=== PATIENT | female | born 1960 | race Caucasian/White ===

== ENCOUNTER 2018-12-12 15:40 | Inpatient (IN) ==
[2018-12-12 17:04] LABS: BASO# 0.03 X1000 (0.0-0.2); BASO% 0.2 % (0.0-0.8); EOS# 0.07 X1000 (0.0-0.7); EOS% 0.4 % (0.0-10.0); HEMATOCRIT 40.9 % (37.0-47.0); HEMOGLOBIN 12.5 g/dL (12.0-16.0); IMM GRAN# 0.09 X1000 (0.0-0.04); IMM GRAN% 0.5 % (0.0-0.5); LYMPH# 0.92 X1000 (1.2-3.4); LYMPH% 5.4 % (20.5-51.1); MCH 32.8 PG (27-31); MCHC 30.6 g/dL (33-37); MCV 107.3 FL (81-99); MONO# 0.75 X1000 (0.11-0.59); MONO% 4.4 % (1.7-9.3); MPV 10.9 FL (7.4-10.4); NEUT% 89.1 % (42.2-75.2); PLT 331 X1000 (130-400); RBC 3.81 XMIL (4.2-5.4); RDW 13.5 % (11.5-14.5); WBC 17.16 X1000 (4.8-10.8)
[2018-12-12 17:05] LABS: INR 1.24; PROTIME 15.8 Seconds (11.0-16.0)
[2018-12-12 17:06] LABS: PTT 33.7 Seconds (22.3-41.8)
[2018-12-12 17:19] LABS: ALB/GLOB RATIO 0.8; ALBUMIN 3.6 g/dL (3.5-5.0); CALCIUM 8.8 mg/dL (8.8-10.2); POTASSIUM 4.1 mmol/L (3.5-5.1); TOTAL BILIRUBIN 0.64 mg/dL (0.20-1.00); TOTAL PROTEIN 8.4 g/dL (6.3-8.3)
[2018-12-12 17:26] LABS: CREATININE 5.8 mg/dL (0.5-0.9)
[2018-12-12] MEDS ORDERED: ZOFRAN ODT PO ONE (17:55)
--- NOTE | 2018-12-12 18:13 | PROVIDER DOCUMENTATION ---
HPI-Abdominal Pain/GI Problem - General Chief Complaint: Abdominal Pain Stated Complaint: SIDE PAIN Time Seen by Provider: 12/12/18 15:57 Source: patient, family Allergies/Adverse Reactions: Patient Allergies Allergy/AdvReac Type Severity Reaction Status Date / Time codeine AdvReac NAUSEA/VOMI Verified 07/29/18 17:49 TING Home Medications: Home Medication List Medication Instructions Recorded Confirmed Last Taken Type Amlodipine Besylate 5 mg PO BID 02/16/16 06/22/17 06/22/17 07:00 History Clonidine [Catapres] 1 tab PO QAM 07/20/16 06/22/17 06/22/17 07:00 History Furosemide 40 mg PO DAILY 08/17/16 06/22/17 06/22/17 07:00 History Losartan Potassium 100 mg PO DAILY 10/05/16 06/22/17 06/22/17 07:00 History Clonidine [Catapres] 2 tab PO HS 12/30/16 06/22/17 06/21/17 History Tramadol [Ultram] 50 mg PO Q8HR PRN #30 tablet 12/31/16 06/22/17 Unknown Rx Carvedilol 25 mg PO BID 06/22/17 06/22/17 06/22/17 07:00 History Folic Acid/Vit Bcomp,C [Cherelle-Beatriz 0.8 mg PO QPM 06/22/17 06/22/17 06/21/17 History Tablet] Levofloxacin [Levaquin] 500 mg PO Q48H #4 tab 06/25/17 Unknown Rx Prednisone See Taper PO DAILY #30 tab 06/25/17 Unknown Rx Cyclobenzaprine [Flexeril] 10 mg PO TID PRN #10 tab 07/29/18 Unknown Rx Prednisone 20 mg PO BID #10 tab 07/29/18 Unknown Rx - History of Present Illness-ABD Nature of Presenting Problems: 58 YO F pmh for ESRD on HD presents with LLQ abdominal pain that radiates to left groin that began last night. Pt states pain is crampy and sharp. She has hx of renal stones but states this pain is not the same. She has associated fever and chills and decreased appetite. last BM was today and with some diarrhea. She went to dialysis today and was not able to complete her treatment. Abdominal Pain Onset Location: reports: LLQ Pain Radiation: reports: groin Quality of Pain: reports: aching, cramping Severity in ED: reports: moderate Onset/Duration: reports: last night Timing: reports: still present, getting worse Activities at Onset: reports: none Exposure to sick contacts?: No Modifying Factors: improves with: nothing Associated Symptoms: reports: fever/chills Review of Systems - Adult - REVIEW OF SYSTEMS - ADULT Constitutional: reports: chills, fever Eyes: reports: no symptoms reported Ears, Nose, Mouth & Throat: reports: no symptoms reported Cardiovascular: denies: chest pain, edema Respiratory: denies: cough, shortness of breath Gastrointestinal: reports: see HPI, abdominal pain, diarrhea, nausea. denies: vomiting Genitourinary: reports: other (anuric) Musculoskeletal: reports: no symptoms reported Neurological: reports: no symptoms reported Hematologic/Lymphatic: reports: no symptoms reported Allergic/Immunologic: reports: no symptoms reported Past History - Adult - PAST MEDICAL HISTORY-ADULT Review of Records: reports: Old Records Reviewed, Nursing Assessment Review Major Childhood Illnesses: reports: denies history Cardiovascular: reports: denies history Respiratory: reports: denies history Gastrointestinal: reports: denies history Obstetrical/Gynecological: reports: denies history Genitourinary: reports: denies history Musculoskeletal: reports: denies history Neurological: reports: denies history Endocrine/Immune: reports: denies history Other Conditions: reports: denies history - PRIOR SURGERIES/PROCEDURES Surgical/Procedure History: reports: none - PRIOR HOSPITALIZATIONS Prior Hospitalizations: reports: none - IMMUNIZATION STATUS Childhood Immunizations: NUTD Flu Vaccine: NUTD - FAMILY HISTORY Family History: reviewed, not pertinent Physical Exam-General - PHYSICAL EXAM-ADULT Initial Vital Signs Reviewed: Yes - CONSTITUTIONAL General Appearance: alert, mild distress (from abdominal pain), obese - EYES Eyes: PERRL/EOMI, pink conjunctivae - HEAD, EARS, NOSE, MOUTH & THROAT HENMT: normocephalic/atraumatic, moist mucous membranes - NECK Neck: full range of motion, supple - RESPIRATORY Respiratory: lungs clear, normal breath sounds - CARDIOVASCULAR Cardiovascular: tachycardia - GASTROINTESTINAL (ABDOMEN) Abdominal Exam: normal bowel sounds, soft (obese abdomen, cannot appreciate guar ding or hernia) - MUSCULOSKELETAL Extremity: non-tender - SKIN Integumentary: normal color, normal turgor, warm/dry - NEUROLOGIC Neurologic: grossly normal, no motor/sensory deficits - PSYCHIATRIC Psych/Mental Status: normal mood/affect Progress - PLAN OF CARE/RESULTS Progress/Plan/Lab Results: Vital Signs - 8 hr 12/12/18 15:58 Temperature 99.8 F H Pulse Rate 104 H Respiratory Rate 20 Blood Pressure 147/70 O2 Sat by Pulse Oximetry 94 L Laboratory Results - last 24 hr 12/12/18 12/12/18 12/12/18 16:26 16:26 16:26 WBC 17.16 H RBC 3.81 L Hgb 12.5 Hct 40.9 MCV 107.3 H MCH 32.8 H MCHC 30.6 L RDW Std Deviation 13.5 Plt Count 331 MPV 10.9 H Immature Gran % (Auto) 0.5 Neut % (Auto) 89.1 H Lymph % (Auto) 5.4 L [place] % (Auto) 4.4 Eos % (Auto) 0.4 Baso % (Auto) 0.2 Immature Gran # (Auto) 0.09 H Neut # (Auto) 15.30 H Lymph # (Auto) 0.92 L [place] # (Auto) 0.75 H Eos # (Auto) 0.07 Baso # (Auto) 0.03 PT 15.8 INR 1.24 PTT (Actin FS) 33.7 Sodium 136 Potassium 4.1 Chloride 91 L Carbon Dioxide 25 Anion Gap 20 BUN 28 H Creatinine 5.8 H Estimated GFR/1.73 m2 7 BUN/Creatinine Ratio 5 Glucose 125 H Calculated Osmolality 279 Calcium 8.8 Total Bilirubin 0.64 AST 9 L ALT 11 Alkaline Phosphatase 96 Total Protein 8.4 H Albumin 3.6 Globulin 4.8 Albumin/Globulin Ratio 0.8 Amylase 35 Lipase 15 Orders Category Date Time Status Saline Loc NOW Care 12/12/18 16:[address] ABDOMEN/PELVIS W/O CONTRAST [CT] Stat Exams 12/12/18 17:22 Ordered AMYLASE [CHEM] Stat Lab 12/12/18 16:26 Completed CBC WITH ELECTRONIC DIFF [HEME] Stat Lab 12/12/18 16:26 Completed COMPREHENSIVE METABOLIC PANEL [CHEM] Stat Lab 12/12/18 16:26 Completed LIPASE [CHEM] Stat Lab 12/12/18 16:26 Completed PROTIME WITH INR [COAG] Stat Lab 12/12/18 16:26 Completed PTT [COAG] Stat Lab 12/12/18 16:26 Completed Ondansetron Odt [Zofran Odt] Med 12/12/18 17:55 Discontinued 4 mg PO NOW ONE Result Diagrams: 12/12/18 16:26 12/12/18 16:26 - CT/MRI 1 CT Study: Abdomen, Pelvis (IMPRESSION: Interval development of substantial atrophic changes of bilateral kidneys, generalized thinning of renal cortices. 1 cm stone in left renal pelvis, with mild distention of the left renal pelvis. No other substantial hydronephrosis. Nonobstructing stones in lower right kidney. 16 x 16 cm cystic appearing mass which extends from the anterior pelvis to the anterior lower abdomen. This has enlarged since 09/18/2016 and may arise from the left adnexa. Inflammatory changes at lower abdomen near the mass, with extraluminal gas in the mesentery/free intraperitoneal air, compatible with perforated viscus. These may arise from the diverticulitis at low lying mid transverse colon. It is also possible that these could relate to pressure erosion of small bowel by the mass. This report was discussed with Dr. Ribeiro on 12/12/2018 at 7:26 PM and was readback. This exam was performed using automated exposure control, adjustment of mA or kV according to patient size, and/or use of iterative reconstruction technique. Electronically signed by Harrison Barnes 12/12/2018 7:27 PM) - CONSULTS/PCP/HOSPITALIST Notification #1 *Consult/PCP/Hospitalist*: Dr. Dennis Time Discussed: 19:33 Consult Disposition: Will see in ED (Dr. Dennis states admit to hospitalist and start abx.) #2 Consult: Dr. Guerrero Time Discussed: 20:05 Consult Disposition: Will see in ED Departure - Departure Date of Disposition Decision: 12/12/18 Time of Disposition Decision: 08:10 DIAGNOSIS: End stage renal failure on dialysis, Abdominal pain, Diverticulitis, Perforated diverticulum of large intestine, Pelvic mass, Renal stones Disposition: ADMITTED INPATIENT 09 Certified Medical Emergency: Emergent Condition: Serious Referrals and Follow-Ups: None,PCP [Primary Care Provider] - - Critical Care Note This patient required my direct & personal management of CC.: No Attestation - Physician/ LUIS FERNANDO Attestation The physician spent face to face time with patient:: Yes Advanced Practice Provider documentation review:: Supervising physician onsite and consulted in the evaluation and care of this patient. The physician did have a face to face encounter with the patient.
[2018-12-12] MEDS ORDERED: MORPHINE IV ONE (18:29)
--- NOTE | 2018-12-12 19:29 | Diag Imaging Result Doc PS360 ---
EXAM: CT ABDOMEN/PELVIS W/O CONTRAST - 12/12/2018 HISTORY: left sided abdominal pain TECHNIQUE: CT abdomen/pelvis without contrast. No contrast administered per request of the referring provider. COMPARISON: 09/18/2016 FINDINGS: The bilateral kidneys appear substantially atrophic compared to the prior exam, with generalized thinning of renal cortices. There is a 1 cm stone in the left renal pelvis, which appears slightly smaller than the stone at this location on the prior exam. There is mild distention of the left renal pelvis, but there is no other substantial hydronephrosis identified. There are nonobstructing stones at the lower right kidney. There are atherosclerotic calcifications noted. There is a 16 x 16 cm cystic appearing mass which extends from the anterior pelvis into the anterior lower abdomen. This measures approximately 11 cm on prior exam. This may arise from the left adnexa. There are inflammatory changes along the left superior lateral aspect of the mass. There are inflammatory changes of nearby mesentery, and there is extraluminal gas in the mesentery/free intraperitoneal air. There is colonic diverticulosis. There is apparent mild wall thickening at the mid transverse colon, which extends to the lower abdomen near the mass. The free intraperitoneal air could relate to diverticulitis at the mid transverse colon. It is also possible that the free air could relate to pressure erosion of small bowel by the mass. There is no discrete focal abscess identified. There is no evidence of bowel obstruction. The appendix is unremarkable. There are a few calcified gallstones in the gallbladder. There is no pericholecystic inflammation identified. There are atherosclerotic calcifications noted. IMPRESSION: Interval development of substantial atrophic changes of bilateral kidneys, generalized thinning of renal cortices. 1 cm stone in left renal pelvis, with mild distention of the left renal pelvis. No other substantial hydronephrosis. Nonobstructing stones in lower right kidney. 16 x 16 cm cystic appearing mass which extends from the anterior pelvis to the anterior lower abdomen. This has enlarged since 09/18/2016 and may arise from the left adnexa. Inflammatory changes at lower abdomen near the mass, with extraluminal gas in the mesentery/free intraperitoneal air, compatible with perforated viscus. These may arise from the diverticulitis at low lying mid transverse colon. It is also possible that these could relate to pressure erosion of small bowel by the mass. This report was discussed with Dr. Ribeiro on 12/12/2018 at 7:26 PM and was readback. This exam was performed using automated exposure control, adjustment of mA or kV according to patient size, and/or use of iterative reconstruction technique. Electronically signed by Harrison Barnes 12/12/2018 7:27 PM
[2018-12-12] MEDS ORDERED: FLAGYL 500 MG/NS 500 MG/100 ML IVPB IV ONE (19:35)
[2018-12-12] MEDS ORDERED: CIPRO 400 MG/D5W 400 MG/200 ML IVPB IV ONE (20:00)
[2018-12-12] MEDS ORDERED: ZOFRAN IV ONE (20:08)
--- NOTE | 2018-12-12 21:13 | HISTORY AND PHYSICAL ---
PRIMARY CARE PHYSICIAN: Dr. Leavitt. REASON FOR ADMISSION: Two day history of left lower quadrant pain. HISTORY OF PRESENT ILLNESS: Ms. Alexandria Carmen is a 58-year-old woman with a past history of end-stage kidney disease, who undergoes dialysis Wednesday, Wednesday, Wednesday; hypertensive heart disease; congestive heart failure; anemia who reports developing sudden sharp and now constant left lower quadrant pain while sitting yesterday night. Said the pain persisted throughout the night and got worse as hours went by. She says the pain is sharp, worse with any slight movement. She says she feels queasy and has been having chills, but no fever. No antecedent diarrhea. No vomiting. The patient is anuric and denies any genitourinary complaints. Reports that the pain radiates to the left lower quadrant to the suprapubic area. No cardiorespiratory complaints. No focal neurological complaints. No polyuria or polydipsia. No arthralgias or rash. No recent change in her home medications. REVIEW OF SYSTEMS: Twelve system review was done. Positive findings per HPI. ALLERGIES: Codeine. HOME MEDICATIONS: Have not been reconciled. SURGICAL HISTORY: Patient has had kidney stone surgery, AV fistula in the left upper extremity. FAMILY HISTORY: No heart disease or kidney disease in first-degree relatives. SOCIAL HISTORY: Stopped smoking 5 years ago. No arcus drug use. Lives with her . LABORATORY WORK: CT scan of the abdomen showed inflammatory changes in the lower abdomen near 16 x 16 cystic appearing mass which extends from the anterior pelvis to the lower abdominal area which has enlarged since 2017. There was also some free intraperitoneal free air compatible with perforated viscus which may arise from diverticulitis at the lower line mid transverse colon. White count 7000, H/H . Platelets 331,000. MCV 107, 89% segs, BUN 28, creatinine 5.8, glucose 125. Lipase and amylase normal. PTT is normal. EXAMINATION: Morbidly obese woman who is in moderate distress from her pain. She is a alert and oriented to person and time with normal mood and affect.Vital Signs: Blood pressure is 140/70, heart rate 104, respiratory rate 20, temperature is 99.8 degrees, 94% on room air. HEENT: Head is normocephalic, atraumatic. Eyes, RITA, EOMI. She is anicteric not pale. ENT exam is grossly normal. Neck: Short and thick. No JVD or carotid bruit. No thyromegaly. Chest: Clear to auscultation. Clear enriquez. Cardiovascular: First and second heart sounds heard. No gallops, murmurs, rubs. Rhythm is regular. Abdomen: Protuberant, soft, with tenderness confined to the suprapubic, left lower quadrant and upper quadrant areas. No rebound or guarding. Bowel sounds are surprisingly hyperactive. No mass or organomegaly could be appreciated. Rectal: Examination is deferred. Extremities: Patient has good distal pulse volume. No edema. No clubbing. No peripheral cyanosis. No tremors. Neurological: No gross focal deficits. Skin: Intact. No breakdown, lesions, erythema. Musculoskeletal: Exam is normal. ASSESSMENT: At this time is 1. Possible perforated viscus, i.e., diverticulitis versus possible erosion or small bowel. 2. Large adnexal cystic mass. 3. End-stage kidney disease. 4. Macrocytic anemia. 5. Hypertensive kidney disease. 6. Hypertensive heart disease. 7. Morbid obesity. PLAN: 1. Dr. Dennis was notified and will see patient later tomorrow. For now, we will start the patient on Zosyn and pain control. Treat symptomatically for nausea. Cautious IV fluid resuscitation. Underwent dialysis today. 2. We will consult Dr. Leavitt for further input and additional consultation for possible preoperative treatment for possible intra-abdominal surgery. 3. Please review patient's home medications when reconciled. cc: Roberto Guerrero MD [facility]
[2018-12-12] MEDS ORDERED: TYLENOL PO ONE (22:19)
[2018-12-12] MEDS ORDERED: NS 1,000 ML IV SCH (22:58)
[2018-12-13] MEDS: DILAUDID IV PRN ×4 (00:55→12:02)
[2018-12-13] MEDS: ZOSYN 2.25 GM in NS 50 ML IV SCH ×5 (00:55→19:38)
[2018-12-13] MEDS: ZOFRAN IV PRN ×2 (00:55→05:22)
[2018-12-13] MEDS: HEPARIN SUBQ SCH ×2 (00:56→13:47)
[2018-12-13 07:52] LABS: BASO# 0.03 X1000 (0.0-0.2); BASO% 0.2 % (0.0-0.8); EOS# 0.03 X1000 (0.0-0.7); EOS% 0.2 % (0.0-10.0); HEMATOCRIT 35.9 % (37.0-47.0); HEMOGLOBIN 10.9 g/dL (12.0-16.0); IMM GRAN% 0.5 % (0.0-0.5); LYMPH# 1.07 X1000 (1.2-3.4); LYMPH% 5.5 % (20.5-51.1); MCHC 30.4 g/dL (33-37); MCV 108.8 FL (81-99); MONO# 0.93 X1000 (0.11-0.59); MONO% 4.8 % (1.7-9.3); MPV 10.8 FL (7.4-10.4); NEUT# 17.18 X1000 (1.4-6.5); NEUT% 88.8 % (42.2-75.2); PLT 304 X1000 (130-400); RDW 13.3 % (11.5-14.5); WBC 19.34 X1000 (4.8-10.8)
--- NOTE | 2018-12-13 07:57 | CONSULTATION ---
DATE OF CONSULTATION: 12/12/2018 HISTORY OF PRESENT ILLNESS: Ms. Alexandria Carmen is a 58-year-old white female who has end-stage renal disease and is morbidly obese. She presented to our emergency department this evening with a 2-day history of abdominal pain in her left lower quadrant of her abdomen. She states that she has had pain like this once before, but it quickly got better. She went to dialysis today, and was miserable, and presented to the emergency department this evening. I was called by the fellow in the emergency department, and was asked to see the patient because a CT scan suggested free air. Evidently, there was inflammation and a mass in the left lower quadrant of the abdomen. This was a preliminary read. I could not pull the patient up in the computer to see films or a report. PHYSICAL EXAMINATION: I went down to examine the patient. She was hemodynamically stable. Her heart rate was 106, her blood pressure 160/54. She was awake, cooperative. She was hurting in the left lower quadrant of her abdomen, but she did not have diffuse peritonitis. She has a left arm AV fistula. She is morbidly obese. Her heart had a regular rate. Lungs were clear. Rectal and vaginal exams were not performed. She does have palpable femoral pulses. PLAN: I have surgery this evening, and then Orthopedics has two cases to follow, so I have asked the fellow to have the hospitalist evaluate the patient and admit her for us, and begin resuscitation and IV antibiotics, and we will reassess her as the data becomes available. cc: Katharine Dennis MD
[2018-12-13 08:17] LABS: ALB/GLOB RATIO 0.8; ALBUMIN 3.1 g/dL (3.5-5.0); CALCIUM 8.9 mg/dL (8.8-10.2); POTASSIUM 4.7 mmol/L (3.5-5.1); TOTAL BILIRUBIN 0.43 mg/dL (0.20-1.00)
[2018-12-13 08:23] LABS: CREATININE 7.6 mg/dL (0.5-0.9)
[2018-12-13] MEDS ORDERED: CIPRO 400 MG/D5W 400 MG/200 ML IVPB IV SCH (09:00)
[2018-12-13 09:55] LABS: BANDS 4 % (0-1); EOS 2 % (1-10); LYMPHS 2 % (21-51); MONO 6 % (1-9); SEGS 86 % (42-75)
[2018-12-13 10:35] LABS: TSH 2.9 uIUmL (0.27-4.20)
--- NOTE | 2018-12-13 16:28 | PROGRESS NOTE ---
DATE: 12/13/2018 SUBJECTIVE: This patient is lying in bed and she is complaining of abdominal pain. Her abdomen seems to be a little bit distended and she has been having diffuse abdominal pain in multiple parts of the abdomen. Surgery Department is on board and at the bedside at the moment of my evaluation. She has been refusing for now to go for surgery. She wants to try antibiotics and pain medication first. OBJECTIVE: Vital Signs: Temperature 97.8 degrees, pulse 84, respiratory rate 16, blood pressure 134/72, oxygen saturation 100% on 2 L of nasal cannula. HEENT: Head normocephalic. No trauma. PERRLA. Neck: Supple. No JVD. No masses. Central trachea. Chest: Clear to auscultation. Decreased at the bases. Abdomen: Soft. Generalized tenderness to palpation, but it is more intense in certain points of the abdomen. Decreased bowel sounds. Extremities: No edema. No clubbing. No cyanosis. No tremors. Neurological: No deficits. LABORATORY: WBC 19.3, hemoglobin 10.9, hematocrit 35.9, and platelets 204,000. Sodium 136, potassium 4.7, chloride 92, bicarbonate 24, BUN 37, creatinine 7.6, glucose 119, calcium 8.9. ASSESSMENT AND PLAN: 1. Possible perforated viscus, likely a diverticular perforation. Surgery Department on board and they have been discussing the possibility of taking this patient to the OR but she has been refusing. She wants to try first antibiotics and pain medication and depending on the progression, she will decide whether or not she will go to the OR. Vital signs are stable but we will monitor this closely. 2. Large adnexal cystic mass, aware. We will monitor. 3. End-stage kidney disease. Nephrology Department has been consulted. We will follow recommendations. 4. Macrocytic anemia. Probably this is chronic. 5. Hypertensive kidney disease. Aware. 6. Hypertension. Continue to monitor. Blood pressure seems to be stable. 7. Morbid obesity. Aware. She does have a body mass index of 40.8 kg. cc: Casper Veliz MD
[2018-12-13] MEDS: KLONOPIN PO SCH ×2 (17:11→20:43)
--- NOTE | 2018-12-13 17:40 | PROGRESS NOTE ---
DATE: 12/13/2018 Ms. Alexandria Carmen is a patient of our hospitalists and Dr. Leavitt, and we were asked to consult on her because of abdominal pain and abnormal CT scan findings. I initially saw her last night in the emergency department because of left-sided abdominal pain. She continues to have abdominal pain, and I have reviewed her CT scan with Dr. Gerardo, our radiologist. Her CT scan shows a large cystic mass involving her pelvis in the lower abdomen. It seems to be coming from the left adnexa. She also has some micro free air, and it is uncertain of where this free air is coming from, whether it is diverticulosis and diverticulitis or is it because bowel is stuck to this cystic mass. Because of her ongoing pain and increasing white count from 17 to 19, I have offered her exploratory laparotomy with removal of the pelvic mass and possible bowel resection and colostomy. She is at high risk for surgery because of her morbid obesity and her end-stage renal disease. She is on IV antibiotics and fluids and clinically states she feels a little bit better and she was scared about making it through surgery and did not want to allow surgery today. She wanted to give the antibiotics more time to work, and her agreed with her. We will follow along. Her heart rate is 78, blood pressure 135/56, O2 saturation 97%. She is afebrile. cc: Katharine Dennis MD
[2018-12-13] MEDS ORDERED: KLONOPIN PO SCH (21:00)
--- NOTE | 2018-12-13 21:10 | NEPHROLOGY CONSULTATION ---
DATE: 12/13/2018 REASON FOR ADMISSION: Left lower quadrant pain and discomfort. REQUESTING PHYSICIAN: Dr. Guerrero. REASON FOR CONSULT: ESRD. HISTORY OF PRESENT ILLNESS: Ms. Carmen is a 58-year-old white female patient who is known to our outpatient services for hemodialysis on Wednesday, Wednesday, Wednesday. Patient had undergone her dialysis treatment today with complaints of left lower quadrant pain. Stated it had worsened over the last 2 days. Indicated that she was going to go to the emergency room for monitoring and evaluation after her dialysis treatment. Upon evaluation at [facility] Emergency Department, she had a CT of the abdomen which showed inflammatory changes with lower abdomen near 16 x 16 cystic appearing mass, extending from the anterior pelvis to the lower abdominal area, which has enlarged since 2017. It also showed free intraperitoneal free air compatible with perforated viscus arising from diverticulitis in the lower line mid transverse colon. Her white count was 7000 on admission. Lipase and amylase were normal. PTT was normal. The patient was subsequently admitted. Dr. Dennis was called and notified for monitoring and evaluation. The patient states that she had been aware of a smaller ovarian cyst approximately 2 years ago. Was unaware of a mass. She denies chest pain. No increased work of breathing. No nausea, vomiting, or diarrhea, though positive decreased appetite. Tenderness to the left lower quadrant. Difficulty moving. Bilateral abdominal discomfort. No fever or chills. No hemoptysis, hematochezia, or hematuria. The patient does indicate that she has pressure with need to void, but has been unable to void for over a year. Positive suprapubic discomfort. PAST MEDICAL HISTORY: Positive for: 1. End-stage renal disease, with hemodialysis on Wednesday, Wednesday, Wednesday secondary to hypertension. 2. She suffers from hypertension. 3. Congestive heart failure. 4. Anemia of chronic disease. 5. Osteodystrophy of chronic disease. SURGICAL HISTORY: A dialysis tunneled catheter in the past with an AV fistula to the left upper arm. FAMILY HISTORY: Noncontributory to end-stage renal disease. Positive for cardiac disease. SOCIAL HISTORY: She lives with her at home. . Denies tobacco, alcohol or illicit drug use. ALLERGIES: Listed as codeine. HOME MEDICATIONS: 1. Amlodipine. 2. Clonidine. 3. Furosemide. 4. Losartan. 5. Tramadol. 6. Carvedilol. 7. Cherelle-Beatriz vitamin. 8. Rocaltrol. 9. Mircera. 10. IV iron as indicated at the outpatient clinic. VITAL SIGNS: The patient's most recent vital signs: Her temperature 98.7 degrees, blood pressure 145/69, heart rate 90, respirations 16. She is on 2 L nasal cannula. Last recorded saturation 95%. She is at 558 in. She has had 0 recorded out. LABS: Sodium 136, potassium 4.7, chloride 92, CO2 24, BUN 37, creatinine 7.6, glucose 119, anion gap of 20, calcium 8.9, albumin 3.1. White count is up to 19.3, hemoglobin 10.9, hematocrit 35.9, with a platelet count of 304,000. The patient has a pro-time of 15.8, INR of 1.24, PTT 33.7. As mentioned, a CT of the abdomen and pelvis indicated a 16.6 mass with some diverticula, free air noted in above. PHYSICAL EXAMINATION: General: This is a 58-year-old white female who appears chronically ill, in no acute distress. Skin: Warm and dry. HEENT: Normocephalic, atraumatic. Conjunctiva is pale. She has RITA. Mucous membranes are dry. Neck: Supple. Trachea midline. No evidence of JVD in the upright position. Cardiovascular: Regular rate and rhythm. She has a soft systolic murmur. Lungs: Clear to auscultation bilaterally. Equal excursion on O2. Abdomen: Large, round, tender to palpation. Genitourinary: Not inspected. She is tender to the suprapubic area. Minimal void with dialysis assist. Extremities: Have no edema. No clubbing or cyanosis. Fistula to the left upper arm. Good palpable thrill, dry and intact. Neurological: Alert and oriented x3. ASSESSMENT AND PLAN: 1. Chronic kidney disease stage 5D. The patient had her routine dialysis treatment yesterday. We will plan for dialysis in the a.m. 2. Electrolytes and acid-base balance. These are acceptable. 3. Anemia. This is close to target. 4. Perforated diverticulitis and pelvic mass. Dr. Dennis has been consulted to evaluate her abdominal mass and possible free air with diverticula. We will defer to his primary care and his suggestions. 5. Bladder scan of greater than 1500 mL. We will defer to Urology secondary to inability to place De La Rosa catheter for ease of pelvic and suprapubic pressure. - Bladder scan is erroneously reading the pelvic cyst as her bladder. No catheter required. elin I would like to thank you for allowing us to follow with this patient. Dictated by PATTI Blum for Michael Leavitt MD Face to face encounter, data reviewed, discussed with Sarah Olivia on 12/13/18. I agree with the above assessment and plan of care. elin cc: PATTI Blum MD [facility]
[2018-12-14] MEDS: ZOSYN 2.25 GM in NS 50 ML IV SCH ×5 (02:03→22:01)
[2018-12-14] MEDS: HEPARIN SUBQ SCH ×2 (02:03→16:19)
[2018-12-14] MEDS: DILAUDID IV PRN ×4 (03:52→23:08)
[2018-12-14] MEDS ORDERED: TIGHT: 0.2 ML/HR FOR DIALYSIS MISC PRN (06:31)
[2018-12-14] MEDS ORDERED: NS 2,000 ML MISC PRN (06:31)
[2018-12-14] MEDS ORDERED: HEPARIN IV PRN (06:31)
[2018-12-14 07:18] LABS: HEMATOCRIT 35.3 % (37.0-47.0); HEMOGLOBIN 10.7 g/dL (12.0-16.0); MCHC 30.3 g/dL (33-37); PLT 296 X1000 (130-400); RBC 3.24 XMIL (4.2-5.4); RDW 13.2 % (11.5-14.5); WBC 16.69 X1000 (4.8-10.8)
[2018-12-14 07:19] LABS: BASO# 0.02 X1000 (0.0-0.2); BASO% 0.1 % (0.0-0.8); EOS# 0.27 X1000 (0.0-0.7); EOS% 1.6 % (0.0-10.0); IMM GRAN# 0.06 X1000 (0.0-0.04); IMM GRAN% 0.4 % (0.0-0.5); LYMPH# 0.99 X1000 (1.2-3.4); LYMPH% 5.9 % (20.5-51.1); MONO# 0.84 X1000 (0.11-0.59); MPV 10.6 FL (7.4-10.4); NEUT# 14.51 X1000 (1.4-6.5)
[2018-12-14 07:39] LABS: ALB/GLOB RATIO 0.6; ALBUMIN 2.5 g/dL (3.5-5.0); CALCIUM 8.9 mg/dL (8.8-10.2); TOTAL BILIRUBIN 0.35 mg/dL (0.20-1.00); TOTAL PROTEIN 6.7 g/dL (6.3-8.3)
[2018-12-14 07:49] LABS: CREATININE 8.9 mg/dL (0.5-0.9)
[2018-12-14 07:57] LABS: BANDS 1 % (0-1); EOS 2 % (1-10); LYMPHS 8 % (21-51); MONO 5 % (1-9); SEGS 84 % (42-75)
--- NOTE | 2018-12-14 12:47 | NEPHROLOGY PROGRESS NOTE ---
DATE: 12/14/2018 TIME SEEN: 0720. SUBJECTIVE: Ms. Carmen was resting quietly in bed. Her is at her bedside. She has complaints of abdominal pain radiating from right to left. OBJECTIVE: Vital Signs: Temperature 98.6 degrees, blood pressure 113/56, heart rate 93, respirations 18. She is on 2 L nasal cannula. Last recorded saturation 97%. She has had 914 in. She has had 0 recorded out. Labs: Sodium 134, potassium 5, chloride is 92, CO2 is 21, BUN 46, creatinine 8.9, glucose is 112, the patient's anion gap is 21, her calcium is 8.9, albumin 2.5. White count 16.69, her hemoglobin is 10.7, hematocrit 35.3, with a platelet count of 296,000. Physical Examination: General: This is a 58-year-old, white female resting quietly in bed. She appears chronically ill. No acute distress. Skin is warm and dry. HEENT: Normocephalic, atraumatic. Conjunctivae are pale pink. She has RITA. Mucous membranes are dry. Neck: Supple. Trachea midline. No evidence of JVD. Cardiovascular: She is regular rate and rhythm. She is without murmur or gallop. Lungs: Clear to auscultation bilaterally. Equal excursion, on O2. Abdomen: Large, obese, soft. Tenderness noted on light palpation. Hypoactive bowel sounds. Genitourinary: Not inspected. Minimal void with dialysis assist. Extremities: Have trace edema. No clubbing or cyanosis. Left upper arm fistula intact with good thrill. Neurological: Alert and oriented x3. ASSESSMENT AND PLAN: 1. Chronic kidney disease stage 5D. The patient is due for her routine dialysis treatment today. We will place her on a 2 K bath. She is to dialyze for 3.5 hours. We will attempt to pull her to her outpatient dry weight. 2. Electrolytes and acid-base balance. These are acceptable with correction on dialysis. 3. Anemia. This remains low but stable. No indications for intervention. 4. Perforated diverticula with pelvic mass. Dr. Dennis continues to monitor and follow, along with the primary care. I would like to thank you for allowing us to follow with this patient. Dictated by PATTI Blum for Michael Leavitt MD Face to face encounter, data reviewed, discussed with Sarah Olivia on 12/14/18. I agree with the above assessment and plan of care. cc: PATTI Blum MD [facility]
--- NOTE | 2018-12-14 13:24 | PROGRESS NOTE ---
DATE: 12/14/2018 Ms. Alexandria Carmen is a patient of our Hospitalist and Dr. Leavitt. She has end-stage renal disease and she is morbidly obese. She was admitted with abdominal pain. She has a known pelvic mass probably originating from her left adnexa. A CT scan showed some free air. We talked about taking her to surgery yesterday but she was worried about making it through the operation and wanted to be treated conservatively with IV antibiotics and fluid resuscitation. Her white blood cell count is 16.7, hematocrit is stable at 35%. She is due for dialysis today. She continue to have lower abdominal pain. Her heart rate is 90, blood pressure 106/45, O2 saturation 93%, and she is afebrile. She is getting IV Zosyn. We will reassess her tomorrow. cc: Katharine Dennis MD
[2018-12-14] MEDS: KLONOPIN PO SCH ×2 (16:20→22:01)
--- NOTE | 2018-12-14 18:04 | PROGRESS NOTE ---
DATE: 12/14/2018 SUBJECTIVE: The patient is lying in bed and she is still complaining of abdominal pain. It seems to be worse compared with this morning. She seems to be a little bit distended. As per the patient, she is passing some gas. Surgery Department on board. White blood cell decreased from 19 to 16. Hemoglobin about the same compared with yesterday. We will continue to monitor. OBJECTIVE: Vital Signs: At 8 a.m., temperature 97.3 degrees, pulse 90, respiratory rate 18, blood pressure 106/45, oxygen saturation 93 on room air. As per the nurse, systolic blood pressure before dialysis in the 120s, after dialysis in the 150s. HEENT: Head normocephalic. No trauma. PERRLA. Neck: Supple. No JVD. No masses. Central trachea. Chest: Clear to auscultation. Decreased at the bases. Abdomen: Soft. Generalized tenderness to palpation but mostly at the level of the upper abdomen. Decreased bowel sounds but present. Extremities: No edema. No clubbing. No cyanosis. Neurological: The patient is alert. She is oriented x3. No focal deficits. LABORATORY: WBC 16.6, hemoglobin 10.7, hematocrit 35.3, and platelets 296,000. Sodium 134, potassium 5, chloride 92, bicarbonate 21, BUN 46, creatinine 8.9, glucose 112, calcium 8.9, AST 9, ALT 10, alkaline phosphatase 86, albumin 2.5. ASSESSMENT AND PLAN: 1. Possible perforated viscus, likely a diverticular perforation. Surgery Department on board. WBC is a little bit better compared with yesterday. She has not been having a fever for the past 24 hours. She did have a fever on the 16th up to 102. She just had dialysis and she tolerated that well. It looks like they removed around 2.5 L. We will monitor this patient. Continue with broad spectrum antibiotics. Surgery Department following this patient closely as well. 2. Large adnexal cystic mass, aware. We will monitor. 3. End-stage renal disease, on hemodialysis. Around 2.5 L were just removed. 4. Macrocytic anemia, likely chronic. 5. Hypertensive kidney disease. Aware. 6. Hypertension. Continue to monitor. Blood pressure seems to be stable. 7. Morbid obesity. Aware. She does have a body mass index of 40.8 kg. 8. We will continue monitoring this patient. She is not on any blood pressure medication at this point and her blood pressure has been sometimes as low as 106/45, so I will continue to monitor. I had a conversation with the patient about the surgery and it looks like she has decided to probably have it tomorrow, but we will see how she does today and we will see the results in the morning again. cc: Casper Veliz MD
[2018-12-15] MEDS: HEPARIN SUBQ SCH ×2 (06:29→18:55)
[2018-12-15] MEDS: ZOSYN 2.25 GM in NS 50 ML IV SCH ×2 (06:30→12:35)
[2018-12-15 07:36] LABS: BASO# 0.02 X1000 (0.0-0.2); BASO% 0.1 % (0.0-0.8); HEMATOCRIT 36.6 % (37.0-47.0); HEMOGLOBIN 10.9 g/dL (12.0-16.0); LYMPH# 1.28 X1000 (1.2-3.4); LYMPH% 7.9 % (20.5-51.1); MCH 32.4 PG (27-31); MCHC 29.8 g/dL (33-37); MCV 108.9 FL (81-99); MONO# 0.88 X1000 (0.11-0.59); MONO% 5.4 % (1.7-9.3); MPV 10.7 FL (7.4-10.4); PLT 338 X1000 (130-400); RBC 3.36 XMIL (4.2-5.4); RDW 13.2 % (11.5-14.5); WBC 16.16 X1000 (4.8-10.8)
[2018-12-15 07:46] LABS: CALCIUM 8.9 mg/dL (8.8-10.2); CREATININE 6.8 mg/dL (0.5-0.9); POTASSIUM 4.2 mmol/L (3.5-5.1)
[2018-12-15 08:03] LABS: BANDS 2 % (0-1); EOS 1 % (1-10); LYMPHS 15 % (21-51); MONO 1 % (1-9); SEGS 81 % (42-75)
[2018-12-15 08:04] LABS: LARGE PLATELETS 2+
[2018-12-15] MEDS: DILAUDID IV PRN (08:28)
[2018-12-15] MEDS ORDERED: HURRICAINE SPRAY (DOSE) ONE (11:26)
[2018-12-15] MEDS: KLONOPIN PO SCH ×2 (11:27→21:00)
[2018-12-15] MEDS ORDERED: NIMBEX ONE (11:33)
[2018-12-15] MEDS ORDERED: XYLOCAINE-MPF 2% ONE (11:40)
[2018-12-15] MEDS ORDERED: NEO-SYNEPHRINE ONE (11:40)
[2018-12-15] MEDS ORDERED: SODIUM CHLORIDE 0.9% 20 ML ONE (11:40)
[2018-12-15] MEDS ORDERED: FENTANYL ONE (11:40)
[2018-12-15] MEDS ORDERED: QUELICIN (DOSE) ONE (11:40)
[2018-12-15] MEDS ORDERED: DIPRIVAN 1% ONE (11:40)
[2018-12-15] MEDS ORDERED: ROBINUL ONE (11:43)
[2018-12-15] MEDS ORDERED: SENSORCAINE 0.25%/EPI 1:200,000 ONE (11:48)
[2018-12-15] MEDS ORDERED: SODIUM CHLORIDE 0.9% ONE (11:48)
[2018-12-15] MEDS ORDERED: LR 1,000 ML ONE (11:48)
[2018-12-15] MEDS ORDERED: ZOFRAN ONE (12:48)
[2018-12-15] MEDS ORDERED: OFIRMEV 1000 MG/ISOTONIC SOLN 1,000 MG/100 ML BOTTLE ONE (12:48)
[2018-12-15] MEDS ORDERED: LOPRESSOR ONE (12:52)
--- NOTE | 2018-12-15 13:16 | PROGRESS NOTE ---
DATE: 12/15/2018 SUBJECTIVE: The patient is lying in bed. She is still complaining of abdominal pain. Surgery Department evaluated this patient, and hopefully she will go to the OR today. OBJECTIVE: Vital Signs: Temperature 98.2 degrees, pulse 92, respiratory rate 18, blood pressure 135/71, oxygen saturation 100% on 2 L of nasal cannula. HEENT: Head normocephalic. No trauma. PERRLA. Neck: Supple. No JVD. No masses. Central trachea. Chest: Clear to auscultation. Decreased at the bases. Abdomen: Soft. Generalized tenderness to palpation, mostly at the level of the upper abdomen. Decreased bowel sounds, but present. Extremities: No edema, no clubbing, no cyanosis. Neurological: The patient is alert. She is oriented x3. No focal deficits. LABORATORY DATA: WBC 16.1, hemoglobin 10.9, hematocrit 36.6, platelets 338,000. Sodium 132, potassium 4.2, chloride 91, bicarbonate 22, BUN 35, creatinine 6.8, glucose 91, calcium 8.9. ASSESSMENT AND PLAN: 1. Possible perforated viscus, likely a diverticular perforation. Surgery Department on board. WBC about the same compared with yesterday. Will continue with antibiotics. Hopefully, this patient will go to the operating room today. 2. Large adnexal cystic mass. Aware. Will monitor. 3. End-stage renal disease, on hemodialysis. She received dialysis yesterday. 4. Macrocytic anemia, likely chronic. 5. Hypertensive kidney disease. Aware. She has end-stage renal disease now. 6. Hypertension. Continue to monitor. Blood pressure seems to be sometimes borderline low, but at this moment, it is stable. 7. Morbid obesity. Aware. She does have a body mass index of 40.8. Will monitor. cc: Casper Veliz MD
--- NOTE | 2018-12-15 13:32 | Diag Imaging Result Doc PS360 ---
EXAM: OPERATIVE CHOLANGIOGRAM 12/15/2018 HISTORY: CHOLECYSTITIS TECHNIQUE: Intraoperative cholangiogram one image COMMENT: No filling defects are present. There is no evidence of obstruction. IMPRESSION: No evidence of retained stones. Electronically signed by Rony Gerardo 12/15/2018 1:30 PM
[2018-12-15] MEDS ORDERED: NEOSTIGMINE ONE (14:51)
[2018-12-15] MEDS: MORPHINE ONE ×2 (16:03→16:24)
[2018-12-15] MEDS ORDERED: NS 1,000 ML ONE (16:17)
[2018-12-15] MEDS: ZOSYN IV SCH (18:55)
[2018-12-15] MEDS: NS 1,000 ML IV SCH (18:59)
--- NOTE | 2018-12-15 20:23 | NEPHROLOGY PROGRESS NOTE ---
DATE: 12/15/2018 TIME SEEN: 0715. SUBJECTIVE: Ms. Carmen is resting quietly in bed. She states that her abdomen is severely painful and she is willing to have surgery. Has not spoken with Dr. Dennis this morning. OBJECTIVE: Vital Signs: Temperature 98 degrees, blood pressure 112/88, heart rate 102, respirations 17. She is on 2 L nasal cannula. Last recorded saturation 94%. She has had 500 in, 2487 out per dialysis. LABORATORY DATA: Sodium 132, potassium 4.2, chloride 91, CO2 22, BUN 35, creatinine 6.8, glucose 91. Her anion gap is 19. Her calcium is 8.9. White count 16.16, hemoglobin 10.9, hematocrit 26.6 with a platelet count of 338,000. The patient had a vaginal culture and sensitivity sent indicating gram-negative rods and gram-positive cocci and gram-positive cocci 2. PHYSICAL EXAM: This is a 58-year-old white female resting quietly in bed. She appears in mild distress secondary to abdominal discomfort.Skin: Warm and dry. HEENT: Normocephalic, atraumatic. Conjunctivae pale. She has RITA. Mucous membranes are dry. Neck: Supple. Trachea midline. No evidence of JVD. Cardiovascular: Regular rate and rhythm. She is without murmur or gallop. Lungs: Clear to auscultation bilaterally. Equal excursion on O2. Abdomen: Tender without palpation. Obese, soft. Hypoactive bowel sounds are present. Genitourinary: Not inspected. Minimal void with dialysis assist. Extremities: Have trace edema. No clubbing or cyanosis. Left upper arm fistula is intact with good thrill. Neurological: Alert and oriented x3. ASSESSMENT AND PLAN: 1. Chronic kidney disease stage 5D. The patient is due for her routine dialysis treatment in the a.m. No indications for intervention today. 2. Electrolytes and acid-base balance. These are acceptable. 3. Anemia. This is low but stable. 4. Perforated diverticula with pelvic mass. Dr. Dennis remains on board to talk with the patient in regards with going to surgery today. She remains on renal dosed antibiotics. 5. I would to thank you for allowing us to follow with this patient. Dictated by PATTI Blum for Michael Leavitt MD [id number] encounter, data reviewed, discussed with Vi Olivia on 12/15/18. I agree with the above assessment and plan of care. cc: PATTI Blum MD [facility]
[2018-12-15] MEDS: PERIDEX MT SCH (21:00)
--- NOTE | 2018-12-15 21:25 | OPERATIVE NOTE ---
PROCEDURE DATE: 12/15/2018 PREOPERATIVE DIAGNOSES: 1. Abdominal pain with free intra-abdominal air. 2. Diverticulosis. 3. Chronic cholecystitis with cholelithiasis. 4. 16 x 16 cm pelvic mass. POSTOPERATIVE DIAGNOSES: 1. Abdominal pain with free intra-abdominal air. 2. Diverticulosis. 3. Chronic cholecystitis with cholelithiasis. 4. 16 x 16 cm pelvic mass. PRINCIPAL PROCEDURE: 1. Laparoscopic cholecystectomy with intraoperative cholangiogram. 2. Resection of large left pelvic mass. 3. Open appendectomy. 4. Exploratory laparotomy with lysis of adhesions and mobilization of the colon. SURGEON: Katharine Dennis MD. SERVICE WORKER HELPER: Cb Bolton RN. ANESTHESIA: General. ESTIMATED BLOOD LOSS: 100 mL. DRAINS: None. INDICATIONS: Ms. Alexandria Carmen is a 58-year-old, morbidly obese, white female with end-stage renal disease. She presented to our emergency department on 12/12/2018 with mostly left-sided abdominal pain. A CT scan of her abdomen and pelvis suggested droplets of free air, but no abscess, large pelvic mass and gallstones. She was admitted, received IV antibiotics. She has also received inpatient dialysis. Her white blood cell count has remained elevated and she continues to have abdominal pain and exploratory laparotomy with indicated procedures were recommended today. FINDINGS: We performed a laparoscopic cholecystectomy initially and her gallbladder was chronically inflamed and had stones within it. We did do an intraoperative cholangiogram, which was essentially normal. She had free flow of the dye into the duodenum without evidence of extrahepatic stones or obstruction. Her extrahepatic bile ducts were slightly dilated. Her liver appeared to be healthy. We did notice some purulent exudate on the greater omentum about mid abdomen. At this point, we converted from laparoscopic to open procedure and we removed a large 16 x 16 cm fluid-filled pill pelvic mass which we felt originated from the left ovary. We then took time to completely mobilized the entire colon and examine it. We took the greater omentum off the colon. There was some inflamed epiploic appendages along the transverse colon. There was also an area of thickened epiploic appendage in 1 small segment of the sigmoid colon. There was no free intraabdominal purulence. All the colon appeared to be viable and supple and I did not know what area the colon to resect. We decided to thoroughly irrigate the abdomen and not resect the colon. We did do an open appendectomy because in mobilizing the right colon we may have affected the blood supply to a retrocecal appendix and we felt it was best to remove it. DESCRIPTION OF PROCEDURE: The patient was brought to the operating room, placed supine, received general anesthesia, and was intubated. Both arms were outstretched on arm boards. We did not use a De La Rosa catheter tube because she had end-stage renal disease. Her abdomen was prepped and draped in a sterile field. We began the procedure by doing the laparoscopic cholecystectomy. I made a small incision upper midline just above the umbilicus with a 15 blade scalpel. Veress needle was introduced. Pneumoperitoneum was established and we placed 11 mm trocar through this incision into the abdomen. The camera was placed through this port, and the abdomen was explored for injury, there was none. We placed 3 other trocars along the right costal margin, an 11 mm trocar just to the right of the midline and two 5 mm trocars in our midclavicular and anterior axillary lines. The patient was then placed in reverse Trendelenburg and turned slightly to her left. I used a grasper to grasp the fundus of the gallbladder and retract it superiorly along with the right lobe of the liver. Another grasper was used to grab the body of the gallbladder and the triangle of Calot was bluntly dissected. I had to place an extra port which was 11 mm port left side of abdomen, so I could place a fan retractor intra-abdominally and push down on the transverse colon so that we could dissect out the triangle of Calot safely. We identified the cystic artery. I placed a clip distally, 2 proximally. It was divided using hook scissors. The cystic duct was dissected along its length. I placed a clip at the cystic duct gallbladder junction. I made a small incision in the cystic duct using hook scissors and a taut intraoperative cholangiogram catheter was used to perform the cholangiogram with findings above. Once cholangiogram was completed, the catheter was removed. Two clips were placed proximally on the cystic duct and we divided the cystic duct between clips using hook scissors. The spatula cautery was used to remove the gallbladder from the liver bed and then I removed the gallbladder through our superior umbilical incision. At this at this point, we decided to make a midline incision so that we could resect the pelvic mass and explored the abdomen for any etiology of the free air. I made a midline incision with a 10 blade scalpel. It was centered at the umbilicus and this incision was carried down through the subcutaneous tissue to the midline fascia and the peritoneal cavity was carefully entered. She had a large pelvic mass, which we had to mobilize some adherent large epiploic appendages and the omentum off of it. Once we mobilized that, we could tell that this was against the left pelvic sidewall, probably ovarian mass and we came across its attachments with the ligature left pelvic sidewall. This specimen was removed and sent to the pathologist for permanent section. There was no leakage of the fluid in this pelvic mass and it was removed intact. We then directed our attention to mobilizing the colon and exploring where the free air might have come from. We mobilized the right colon. Initially, we mobilized all the greater omentum off the transverse colon. I mobilized the splenic flexure and descending colon. There was some inflamed epiploic appendages along the transverse colon but the colon appeared not thickened there was no obvious perforation. We also ran the bowel and the small bowel appeared to be healthy. In mobilizing the right colon, we felt we hurt the blood supply to the retrocecal appendix and therefore, we removed the appendix using a TA-30 blue load Stapler and the appendix was removed with a 15 blade scalpel. It was sent to the pathologist for permanent section. We thoroughly irrigated out the abdomen with warm saline. We placed the bowel back in its anatomically correct position. She had a large omentum, which we placed over the surface of the bowel. We decided against resecting any segment of the colon. We took time to close the midline fascia because of her obesity. We closed the peritoneum with a running 0 Vicryl stitch. We had interrupted 0 Vicryl stitches involving the fascia and then we used a running #1 Maxon stitch to close the midline fascia. We thoroughly irrigated out the incision and we loosely closed the skin with a skin clip geospatial specialist. Between our miroslava we packed iodoform gauze. Dry dressings were applied. An NG tube was placed during the procedure. She will go to the recovery room with an NG tube in place. No De La Rosa catheter tube and she will either go to the floor or the ICU depending on how she is doing. cc: Katharine Dennis MD
[2018-12-15] MEDS: MORPHINE IV PRN (22:30)
[2018-12-16] MEDS ORDERED: BLISTEX MEDICATED BERRY LIP BALM TOP PRN (03:38)
[2018-12-16] MEDS: ZOSYN IV SCH (04:07)
[2018-12-16] MEDS: NS 1,000 ML IV SCH ×3 (04:07→17:39)
[2018-12-16] MEDS: MORPHINE IV PRN ×2 (04:08→16:29)
[2018-12-16] MEDS: PHENERGAN INJ PRN (04:25)
[2018-12-16] MEDS ORDERED: CARDIZEM IV ONE (05:47)
[2018-12-16 06:29] LABS: BASO# 0.04 X1000 (0.0-0.2); BASO% 0.2 % (0.0-0.8); EOS# 0.02 X1000 (0.0-0.7); EOS% 0.1 % (0.0-10.0); HEMOGLOBIN 11.3 g/dL (12.0-16.0); IMM GRAN# 0.21 X1000 (0.0-0.04); LYMPH# 1.06 X1000 (1.2-3.4); LYMPH% 5.1 % (20.5-51.1); MCH 32.2 PG (27-31); MCHC 29.7 g/dL (33-37); MCV 108.3 FL (81-99); MONO# 1.19 X1000 (0.11-0.59); MONO% 5.7 % (1.7-9.3); MPV 10.5 FL (7.4-10.4); NEUT# 18.24 X1000 (1.4-6.5); NEUT% 87.9 % (42.2-75.2); PLT 358 X1000 (130-400); RBC 3.51 XMIL (4.2-5.4); RDW 13.2 % (11.5-14.5); WBC 20.76 X1000 (4.8-10.8)
[2018-12-16] MEDS ORDERED: NS 2,000 ML MISC PRN (06:33)
--- NOTE | 2018-12-16 06:43 | EKG Report ---
Test Performed on : 12/16/2018 05:29:03 AM Test Reason : Tachycardia Blood Pressure : / mmHG Vent. Rate : 164 BPM Atrial Rate : 174 BPM P-R Int : 000 ms QRS Dur : 074 ms QT Int : 282 ms P-R-T Axes : 000 -05 230 degrees QTc Int : 465 ms Atrial fibrillation. with rapid ventricular response. Cannot rule out Anterior infarct , age undetermined Abnormal ECG When compared with ECG of 29-JUL-2018 16:21, Atrial fibrillation. has replaced Sinus rhythm. Vent. rate has increased BY 77 BPM Non-specific change in ST segment in Lateral leads Nonspecific T wave abnormality now evident in Inferior leads Nonspecific T wave abnormality, worse in Lateral leads Confirmed by Remberto LOZANO, Jay Macdonald ([id number]) on 12/17/2018 11:51:47 AM
[2018-12-16 06:51] LABS: ALB/GLOB RATIO 0.7; ALBUMIN 2.6 g/dL (3.5-5.0); CALCIUM 9.1 mg/dL (8.8-10.2); POTASSIUM 5.3 mmol/L (3.5-5.1); TOTAL BILIRUBIN 0.48 mg/dL (0.20-1.00); TOTAL PROTEIN 6.5 g/dL (6.3-8.3)
[2018-12-16] MEDS ORDERED: NS 250 ML IV ONE (06:57)
[2018-12-16] MEDS: CARDIZEM IV ONE ×2 (07:00→07:23)
[2018-12-16 07:47] LABS: BANDS 10 % (0-1); EOS 1 % (1-10); LARGE PLATELETS 2+; LYMPHS 10 % (21-51); SEGS 79 % (42-75)
--- NOTE | 2018-12-16 08:01 | Diag Imaging Result Doc PS360 ---
EXAM: CHEST-PORTABLE 12/16/2018 HISTORY: SOB TECHNIQUE: AP portable at 0750 COMMENT: The inspiration is less optimal than on 06/24/2017 and there is opacification of the left lower lobe and lingula which was not present at the time the previous study. There is an NG tube with its tip in the stomach. There is some atelectasis over the right base. IMPRESSION: Lingular and left lower lobe pneumonia. The possibility of superimposed pulmonary edema cannot be excluded. Electronically signed by Rony Gerardo 12/16/2018 7:59 AM
[2018-12-16] MEDS: KLONOPIN PO SCH (08:10)
[2018-12-16] MEDS: PERIDEX MT SCH ×2 (08:10→20:07)
[2018-12-16] MEDS ORDERED: LANOXIN IV SCH (09:00)
[2018-12-16] MEDS ORDERED: NEO-SYNEPHRINE 50 MG in NS 250 ML IV SCH (09:00)
[2018-12-16] MEDS: ZYVOX 600 MG/D5W 600 MG/300 ML IVPB IV SCH ×2 (09:01→20:06)
[2018-12-16] MEDS: HEPARIN SUBQ SCH ×2 (09:02→20:07)
--- NOTE | 2018-12-16 10:10 | PROGRESS NOTE ---
DATE: 12/16/2018 SUBJECTIVE: This patient is postoperative day #1 on laparoscopic cholecystectomy with intraoperative cholangiogram, resection of a large left pelvic mass and open appendectomy, lysis of adhesions and mobilization of the colon. Today, x-ray showed the possibility of left lower lobe pneumonia and probably pulmonary edema. Likely, also, this patient has peritonitis. Her white blood cell count increased to 20. No fever for the past 3 days, though, she is a dialysis patient. She started having atrial fibrillation RVR after the procedure. She received some diltiazem, but the blood pressure has been dropping so Cardiology Department evaluated this patient. They will start this patient on digoxin and probably also on vasopressors. PHYSICAL EXAMINATION: Vital Signs: Temperature 99.2 degrees, pulse 147, respiratory rate 21 blood pressure at 6:30 in the morning 102/70, but at this moment the systolic blood pressure has been mostly in the 80s. Oxygen saturation 93 on 2 L of nasal cannula. HEENT: Head normocephalic. No trauma. PERRLA. Neck: Supple. No JVD. No masses. Central trachea. Chest: Decreased breath sounds mostly at the bases with some crepitus at the bases as well. Abdomen: Soft with generalized tenderness to palpation. She does have multiple new wounds that are covered with dressing. No signs of bleeding. Decreased bowel sounds. Extremities: No edema. No clubbing. No cyanosis. Neurological: The patient is alert. She is oriented x3. No focal deficits. Cardiovascular: Irregularly irregular rate and rhythm. LABORATORY: WBC 20.7, hemoglobin 11.3, hematocrit 38, and platelets 358,000. Sodium 140, potassium 5.3, chloride 96, bicarbonate 19, BUN 50, creatinine 8, glucose 117, and calcium 9.1. ASSESSMENT AND PLAN: 1. Atrial fibrillation RVR. Cardiology Department has been consulted. She received a dose of diltiazem, but the blood pressure has been low. Likely, we will start this patient on digoxin, and we will use Daljit-epinephrine. 2. Sepsis. This patient meets criteria for sepsis with tachycardia, tachypnea and a source of infection. X-ray showing left lower lobe pneumonia, and also likely this patient has peritonitis as well. I will continue broad-spectrum antibiotics renally dosed. 3. Status post laparoscopic cholecystectomy with intraoperative cholangiogram, exploratory laparotomy with lysis of adhesions, and mobilization of the colon, resection of a large left pelvic mass and open appendectomy. This patient was initially admitted due to free abdominal air and severe pain. Postoperative day #1, Surgery on board. The wound looks clean and dry. No active bleeding so far. 4. End-stage renal disease. Continue with dialysis per Nephrology Department. 5. Macrocytic anemia, likely chronic. 6. Hypertensive kidney disease, aware. 7. Hypertension. Actually, her blood pressure has been dropping. We will continue to monitor. We are holding her blood pressure medications. 8. Morbid obesity with a body mass index of 40.8%. Also, this patient is not walking because of severe knee osteoarthritis. It is really important for her to start losing weight. TIME SPENT: Critical Care time 35 minutes. cc: Casper Veliz MD
[2018-12-16 10:29] LABS: INR 1.21; PROTIME 15.5 Seconds (11.0-16.0); PTT 23.8 Seconds (22.3-41.8)
[2018-12-16] MEDS: CARDIZEM 125 MG/D5W 125 MG/125 ML IVPB IV SCH ×2 (11:09→17:40)
[2018-12-16] MEDS: ZOSYN 2.25 GM in NS 50 ML IV SCH ×2 (12:08→20:07)
--- NOTE | 2018-12-16 12:45 | PROGRESS NOTE ---
DATE: 12/16/2018 SUBJECTIVE: Ms. Alexandria Carmen has been moved to the ICU postoperatively because she has atrial fib with high heart rate. She is awake. She states clinically she feels better in her abdomen, but she is sore from her midline incision. She has an NG tube in place. No De La Rosa catheter tube because she has end-stage renal disease. She has had hypotension. OBJECTIVE: Vital Signs: Her heart rate is 142, blood pressure 98/74, O2 saturation 97%. She is afebrile. She is receiving IV Zosyn. Her white blood cell count went from 16 to 20 over the last 24 hours. Hematocrit stable at 38%. Her BUN and creatinine are 50 and 8.0. Potassium is 5.3. Chest x-ray this morning showed possible pulmonary edema. PLAN: I can support in the ICU including treatment for her atrial fib with rapid rate. We will leave her NG tube. We will continue her IV antibiotics. Dialysis per Dr. Leavitt. cc: Katharine Dennis MD
--- NOTE | 2018-12-16 13:53 | CARDIOLOGY CONSULTATION ---
DATE: 12/16/2018 REQUESTING PHYSICIAN: Hospitalist Service. REASON FOR CONSULTATION: Atrial fibrillation with rapid response. HISTORY: Ms Carmen is an unfortunate 58-year-old female who is followed by the Renal Service, who presented to the ER on December 12 which is this past Wednesday at about 6 p.m. complaining of severe abdominal pain that had been going on for several hours. It started the night prior to admission, left lower quadrant abdominal pain. They did imaging studies and CT showed substantial atrophic changes of bilateral kidneys. Inflammatory changes of lower abdomen near the mass. There is a 16 x 16 cm cystic-appearing mass extending from the anterior pelvis to the anterior lower abdomen. There is extraluminal gas in the mesentery, free intraperitoneal air. With these findings, the patient was taken to the operating room by Dr. Dennis. On December 15, they did a laparoscopic cholecystectomy with intraoperative cholangiogram, resection of large left pelvic mass, open appendectomy, and exploratory laparotomy with lysis of adhesions and mobilization of the colon. The patient subsequently developed atrial fibrillation with rapid response last night and for that matter, they have transferred her to the step-down cardiac unit. The patient denies having any palpitations. She is just having abdominal pain. She is very uncomfortable. Her is at the bedside. PAST MEDICAL HISTORY: The patient past history is positive for advanced renal failure. She has had hypertension for many years. Eventually, she went on dialysis and Dr. Leavitt has been in charge of the dialysis. The patient has also a history of anemia, obesity. PAST SURGICAL HISTORY: She has had dialysis access created in the left upper extremity. FAMILY HISTORY: Really noncontributory. SOCIAL HISTORY: She has been to her for 40+ years. 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 She retired in 2013. She has no children. She quit smoking in 2013. HOME MEDICATIONS: At the time of this dictation included: 1. Amlodipine 5 mg daily. 2. Carvedilol 25 mg twice a day. 3. Clonidine 0.1 mg twice a day. 4. Folic acid and vitamin B daily. 5. Losartan 100 mg daily. ALLERGIES: Codeine. REVIEW OF SYSTEMS: She is not very active on account of chronic arthritis of her knees. She has also gained a lot of weight. Her body mass index is greater than 40. There is some question of sleep apnea on her. She was aware of having some sort of pelvic cyst in the past. She has followed with Dr. Holguin from Urology in the past.Dr. Holguin performed external shock wave lithotripsy on her in the past. She has had previous endoscopies in the past that have demonstrated the presence of duodenal ulcer and antral erosions. PHYSICAL EXAMINATION: Vital signs: Today, blood pressure 98/74, pulse is 140, respirations 20, temperature 98.5 degrees, The patient is obese, lying in bed. She has an NG tube. She is not in respiratory distress. She just complains of abdominal pain. HEENT: Normal. Chest: Diminished breath sounds diffusely. Heart: Sounds are distant, irregular, rapid. Abdomen: Shows the dressing of the laparotomy performed yesterday. Is distended, tender diffusely. Bowel sounds are markedly diminished. Extremities: Showed no obvious edema. Pulses are diminished, feeble. Neurologic: She can move 4 extremities. She follows commands. LABORATORY DATA: Blood work today, her white cell count is 20,760, hemoglobin 11.3, hematocrit is 38. Sodium 140, potassium 5.3, BUN 50, creatinine 8 mg, albumin is 2.6. IMPRESSION: 1. Patient who has developed paroxysmal atrial fibrillation on the 1st postoperative day following a laparotomy that included extensive surgical resections including a pelvic mass, cholecystectomy, and lysis of adhesions. 2. Peritonitis. The reason for the peritonitis is unclear. According to Dr. Dennis's report, there was no obvious perforation of the bowel. However, there is definite inflammation of the peritoneum. 3. Morbidly obese. 4. End-stage renal disease on hemodialysis. 5. History of hypertension. RECOMMENDATION: At this time, we will move the patient to ICU for IV Daljit- Synephrine. We will give her digoxin. We will keep her on Cardizem. We will follow her closely. Thank you for asking us to participate in her evaluation. cc: Shyam Lee MD [facility]
--- NOTE | 2018-12-16 13:59 | NEPHROLOGY PROGRESS NOTE ---
DATE: 12/16/2018 TIME SEEN: 0800 hours. SUBJECTIVE: Ms. Carmen is resting quietly in bed. She is very lethargic. She is diaphoretic and pale, and has abdominal discomfort. VITALS: Blood pressure 98/74, heart rate is 142, respirations are 24. Last temperature of 98. She is on 3 L nasal cannula. Last recorded saturation 93%. She has had 1464 in with 100 mL out. LABORATORY DATA: Sodium 140, potassium 5.3, chloride 96, CO2 19, BUN 50, creatinine 8, glucose 117. Her anion gap is 25, her calcium is 9.1, albumin 2.6. White count 20.76, hemoglobin 11.3, hematocrit 38, platelet count 358,000. PHYSICAL EXAMINATION: General: This is a 58-year-old white female resting in bed. She appears in mild distress, with abdominal discomfort. Skin: Warm and dry. HEENT: Normocephalic, atraumatic. Conjunctivae pale. She has dry mucous membranes. Neck: Supple. Trachea midline. No evidence of JVD in the upright position. Cardiovascular: Regular rate and rhythm. No murmur or gallop appreciated. Lungs: Clear to auscultation bilaterally. Equal excursion on O2. Poor inspiratory effort noted. Abdomen: Large, obese, soft. Positive tenderness without palpation. Quiet bowel sounds. NG tube to low intermittent suction, bile green noted to tubing. Genitourinary: Not inspected, minimal void with dialysis assist. Extremities: The extremities have trace edema. No clubbing or cyanosis. Left upper arm fistula with good thrill. Neurologic: The patient is lethargic, opens eyes to verbal stimuli. ASSESSMENT AND PLAN: 1. Chronic kidney disease, stage 5D. This is patient's routine dialysis treatment day. Secondary to her findings of low blood pressure and elevated heart rate the patient is to be placed on Cardizem and transferred to the ICU. We will hold her dialysis today. We will re- evaluate in the a.m. She does not appear in any respiratory distress. 2. Electrolytes, with acid-base balance. These are acceptable. 3. Anemia. This is stable. 4. Status postoperative day #1 for removal of pelvic mass, cholecystectomy and appendectomy. Followed by Dr. Dennis. 5. New-onset atrial fibrillation with RVR. The patient is transfer to ICU. Followed by the primary care, to be started on a Cardizem drip. I would like to thank you for allowing us to follow with this patient. Dictated by PATTI Blum for Michael Leavitt MD cc: PATTI Blum MD
[2018-12-16] MEDS: LANOXIN IV SCH ×2 (15:34→20:07)
[2018-12-17] MEDS: KLONOPIN PO SCH ×3 (01:56→20:28)
[2018-12-17] MEDS: ZOSYN 2.25 GM in NS 50 ML IV SCH ×3 (03:12→20:27)
[2018-12-17] MEDS: LANOXIN IV SCH (03:13)
[2018-12-17] MEDS: NS 1,000 ML IV SCH (04:12)
[2018-12-17 06:33] LABS: BASO# 0.05 X1000 (0.0-0.2); BASO% 0.3 % (0.0-0.8); EOS# 0.79 X1000 (0.0-0.7); HEMATOCRIT 36.4 % (37.0-47.0); HEMOGLOBIN 10.7 g/dL (12.0-16.0); IMM GRAN# 0.45 X1000 (0.0-0.04); IMM GRAN% 2.3 % (0.0-0.5); LYMPH# 1.09 X1000 (1.2-3.4); LYMPH% 5.5 % (20.5-51.1); MCH 32.1 PG (27-31); MCHC 29.4 g/dL (33-37); MCV 109.3 FL (81-99); MONO# 1.29 X1000 (0.11-0.59); MONO% 6.6 % (1.7-9.3); MPV 10.8 FL (7.4-10.4); NEUT# 16.01 X1000 (1.4-6.5); NEUT% 81.3 % (42.2-75.2); PLT 336 X1000 (130-400); RBC 3.33 XMIL (4.2-5.4); RDW 13.2 % (11.5-14.5); WBC 19.68 X1000 (4.8-10.8)
[2018-12-17 06:43] LABS: ALBUMIN 2.1 g/dL (3.5-5.0); CALCIUM 8.7 mg/dL (8.8-10.2); CREATININE 8.5 mg/dL (0.5-0.9); CREATININE 8.6 mg/dL (0.5-0.9); PHOSPHORUS 7.6 mg/dL (2.7-4.5); POTASSIUM 5.5 mmol/L (3.5-5.1); POTASSIUM 5.7 mmol/L (3.5-5.1)
[2018-12-17 06:44] LABS: ALB/GLOB RATIO 0.6; ALBUMIN 2.1 g/dL (3.5-5.0); CALCIUM 8.8 mg/dL (8.8-10.2); TOTAL BILIRUBIN 0.4 mg/dL (0.20-1.00); TOTAL PROTEIN 5.9 g/dL (6.3-8.3)
[2018-12-17] MEDS: MORPHINE IV PRN ×4 (06:44→20:43)
[2018-12-17] MEDS ORDERED: TIGHT: 0.2 ML/HR FOR DIALYSIS MISC PRN (07:13)
[2018-12-17] MEDS ORDERED: NS 2,000 ML MISC PRN (07:13)
[2018-12-17] MEDS ORDERED: HEPARIN IV PRN (07:13)
--- NOTE | 2018-12-17 07:19 | Diag Imaging Result Doc PS360 ---
EXAM: CHEST-PORTABLE 12/17/2018 HISTORY: dyspnea TECHNIQUE: AP portable at 0520 COMMENT: There is an NG tube which passes below the diaphragm. Compared to 12/16/2018 the basilar opacities bilaterally have improved slightly. There is still considerable opacification in the lateral left base. IMPRESSION: Improved pneumonia. Electronically signed by Rony Gerardo 12/17/2018 7:17 AM
[2018-12-17 07:28] LABS: LYMPHS 6 % (21-51); MONO 2 % (1-9); SEGS 92 % (42-75)
--- NOTE | 2018-12-17 08:47 | ECHO REPORT ---
ORDER DATE: 12/16/2018 ECHOCARDIOGRAPHIC MEASUREMENTS: 1. Septal thickness 1.1. 2. Left ventricular internal diameter diastole 4.1. 3. Posterior wall thickness 1.1. 4. Aortic root 3.0. 5. Left atrium 3.1. SUMMARY: 1. Technically difficult study due to limited acoustic window quality. 2. Aortic valve is not well imaged, but appears to be probably trileaflet with mild sclerosis. Peak gradient across the aortic valve is 18 mmHg with a mean gradient of 11 mmHg. Mild mitral annular calcification is demonstrated. Tricuspid valve is without evidence of structural abnormality with mild tricuspid regurgitation. Pulmonic valve is not well imaged. The estimated systolic PA pressure by Doppler is 45 to 50 mmHg suggesting mild to moderate pulmonary hypertension. The aortic root is normal in size. 3. Normal left ventricular dimensions suggested. The left ventricle appears hyperdynamic with estimated left ventricular ejection fraction greater than 75%. No focal wall motion abnormality can be appreciated. Left atrium, right atrium, and right ventricle are grossly normal in size with grossly preserved right ventricular systolic function. 4. No pericardial effusion. 5. Inferior vena cava not well demonstrated. 6. Atrial fibrillation with rapid ventricular rate demonstrated during study. cc: Aditya Rizzo MD
--- NOTE | 2018-12-17 09:12 | PROGRESS NOTE ---
DATE: 12/17/2018 SUBJECTIVE: This patient is lying comfortably in bed. She is complaining of generalized weakness and abdominal pain. The Cardizem drip had been stopped yesterday around 10 p.m., she is in normal sinus rhythm at this moment, and the vasopressor has been stopped at 5 a.m. today. She is an end- stage renal disease patient. Her potassium level is 5.7. I will wait for Nephrology Department recommendations. Probably she will be dialyzed today. She was due for dialysis yesterday, but because of her low blood pressure they have decided to re-evaluate today. OBJECTIVE: Vital Signs: Temperature 98 degrees, pulse 77, respiratory rate 13, blood pressure 104/49, oxygen saturation 91 on 2 L of nasal cannula. HEENT: Head normocephalic, no trauma. PERRLA. Neck: Neck is supple. No JVD. No masses. Central trachea. Chest: Decreased breath sounds mostly at the bases with some crepitus at the bases as well. Abdomen: Soft. Generalized tenderness to palpation. She does have some multiple new wounds and they are covered with dressings. No signs of bleeding. Decreased bowel sounds present. Extremities: No edema. No clubbing. No cyanosis. Neurological examination: The patient is alert. She is oriented. She does have generalized weakness. LABORATORY: WBC 19.6, hemoglobin 10.7, hematocrit 36.4, platelets 336. Sodium 133, potassium 5.7, chloride 93, bicarbonate 19. BUN 54, creatinine 8.5, glucose 80, calcium 8.8, phosphorus 7.6, albumin 2.1. ASSESSMENT AND PLAN: 1. Septic shock. This patient used to be on pressors and they were stopped at 5 a.m. Now blood pressure seems to be more stable. She has been tachycardic, tachypneic, and we have a source of infection. Chest x-ray showed left lower lobe pneumonia. Likely this patient has peritonitis as well. We will continue with broad-spectrum antibiotics renally dosed. 2. Atrial fibrillation with rapid ventricular response. She is in normal sinus rhythm now. She was on diltiazem drip, which has been stopped yesterday during the night, around 10 p.m. We will continue to monitor. Cardiology Department on board. 3. Status post laparoscopic cholecystectomy with intraoperative cholangiogram, exploratory laparotomy with lysis of adhesions, mobilization of the colon, resection of a large left pelvic mass and open appendectomy. This patient was initially admitted due to free abdominal air and severe pain. This is postoperative day #2. Surgery on board. The wound looks fine. 4. End-stage renal disease. Continue with dialysis per Nephrology Department. 5. Macrocytic anemia, likely chronic. 6. Hypertension. Actually blood pressure has been borderline low, and she was just getting vasopressors. For now I will hold any blood pressure medication. 7. Morbid obesity with a body mass index of 41.4. It has been discussed diet and exercise before. She also has apparently severe osteoarthritis. It is really important for this patient to start losing weight. CRITICAL CARE TIME: 35 minutes. cc: Casper Veliz MD
[2018-12-17] MEDS: HEPARIN SUBQ SCH ×2 (09:14→20:28)
[2018-12-17] MEDS: PERIDEX MT SCH ×2 (09:44→20:28)
--- NOTE | 2018-12-17 10:12 | NEPHROLOGY PROGRESS NOTE ---
DATE: 12/17/2018 DATE AND TIME OF EXAM: 12/17/2018 at 0730 hours. SUBJECTIVE: Ms. Carmen is resting quietly in bed. She currently has her Daljit-Synephrine and her Cardizem drip on standby, normal saline at 80 mL an hour. She states that she has abdominal discomfort and just is not feeling well. VITAL SIGNS: Temperature 98 degrees, blood pressure 104/49, heart rate 72, respirations are 12. She is on 2 L nasal cannula. Her last recorded saturation 95%. She has had 2853 in; she has had 340 out. LABORATORY DATA: Sodium 133, potassium 5.7, chloride 93, CO2 19. BUN 54, creatinine 8.5, glucose is 80. Her anion gap is 18, calcium 8.7, phosphorus 7.6, albumin 2.1. White count 19.66, hemoglobin 10.7, hematocrit 36.4 with a platelet count of 33.6. PHYSICAL EXAMINATION: General: This is a 58-year-old white female. She is resting quietly in bed. She appears chronically ill. Mild abdominal discomfort. Skin: Warm and dry. HEENT: Normocephalic, atraumatic. Conjunctiva is pale. She has RITA. Mucous membranes are dry. NG tube to low intermittent suction cardona yellow with dark flecks in the tubing. Neck: Supple. Trachea midline. No JVD in her upright position detected. Cardiovascular: She is regular rate and rhythm at this time. She has isolated PACs, rate controlled. Lungs: Clear to auscultation bilaterally. Equal excursion. She is on O2. Abdomen: Tender to palpation. Quiet bowel sounds. Genitourinary: Not inspected. Minimal void with dialysis assist. Extremities: She has trace edema to her upper arms, dependent. Neurological: She is alert and oriented x3. Recognizes myself. Remembers most recent events. ASSESSMENT AND PLAN: 1. Chronic kidney disease stage 5 D. The patient was not able to have her dialysis treatment yesterday due to her new onset atrial fibrillation with rapid ventricular response and hypotension. We will plan for dialysis today. We will place her on a 2 potassium bath. She is to dialyze for 3-1/2 hours. We will attempt to pull patient to her outpatient dry weight. 2. Electrolytes and acid-base balance with correction on dialysis. 3. Anemia. This remains low, but stable. 4. Status postoperative day #2 followed by primary care and Dr. Dennis. Abdominal incision not inspected. 5. New onset atrial fibrillation with rapid ventricular response. The patient has converted. She is currently on diltiazem times one oral dose. She currently has her intravenous drip on hold. Daljit-Synephrine remains on hold. Followed by Cardiology. I would like to thank you for allowing us to follow with this patient. Dictated by PATTI Blum for Michael Leavitt MD cc: PATTI Blum MD
--- NOTE | 2018-12-17 10:24 | GENERAL SURGERY PROGRESS NOTE ---
DATE: 12/17/2018 SUBJECTIVE: The patient complains of pain all over. No flatus. OBJECTIVE: Vital signs: She is afebrile. Pulse in the 70s, systolic blood pressure 108/45, O2 saturation 95%. NG tube output 340 mL. A bowel movement was noted yesterday and it was small and brown. General: She is awake and alert, oriented x3. She appears very weak. Cardiovascular: Regular rate and rhythm. Respiratory: Bilateral breath sounds. No work of breathing. Gastrointestinal: Soft, nondistended, moderately tender throughout. Incision has multiple rip with bloody drainage. Bowel sounds are absent. LABORATORY DATA: White blood cell count 19,000. Blood culture is positive for gram-positive cocci. ASSESSMENT AND PLAN: A 58-year-old female postoperative day 2 exploratory laparotomy with cholecystectomy, appendectomy, and ovarian cystectomy with perioperative atrial fibrillation and rapid ventricular response. She will remain n.p.o. I will allow some ice chips. She is on broad- spectrum antibiotics. Cardiology is following. She is on dialysis for end-stage renal disease. We will continue the nasogastric tube for now and we will consult Physical Therapy for assistance with mobilization although she notes that she does not walk much at baseline. cc: Pastor Mehta MD
[2018-12-17] MEDS: NEO-SYNEPHRINE 50 MG in NS 250 ML IV SCH ×2 (10:42→15:31)
[2018-12-17] MEDS: ZYVOX 600 MG/D5W 600 MG/300 ML IVPB IV SCH ×2 (14:45→20:28)
[2018-12-17] MEDS ORDERED: LOPRESSOR IV PRN (16:43)
--- NOTE | 2018-12-17 17:13 | PROGRESS NOTE ---
DATE: 12/17/2018 SUBJECTIVE: Patient denies chest discomfort or shortness of breath. She complains of abdominal discomfort. She is continuing on NG suction. She converted back to sinus rhythm last night. OBJECTIVE: Vital Signs: Blood pressure 126/54, heart rate 80 and regular with ECG monitor showing sinus rhythm. Oxygen saturation 96% on nasal cannula oxygen. Neck: Jugular venous distention cannot be appreciated. Chest: Clear to auscultation anteriorly. Cardiac Exam: Reveals a regular rate and rhythm without appreciable murmur or gallop. Abdomen: Distended with mild diffuse tenderness. Bowel sounds not audible. Extremities: Without edema. LABORATORY DATA: Includes a white blood cell count of 19.68, hematocrit 36.4, hemoglobin 10.7, platelet count 336. Sodium 133, potassium 5.7, chloride 93, carbon dioxide 19. BUN 54, creatinine 8.5, glucose 80. IMPRESSION: 1. Postoperative atrial fibrillation on postoperative day 1 following laparotomy with extensive surgical resections, including pelvic mass, cholecystectomy, and lysis of adhesions. Patient converted back to sinus rhythm last night. 2. Acute abdominal process with peritonitis. Patient is status post laparotomy as above. She is now postoperative day 2. 3. Morbid obesity. 4. End-stage renal disease requiring hemodialysis. 5. Hypertension. RECOMMENDATIONS: 1. Interrupt IV diltiazem for now. 2. Continue to monitor on telemetry. cc: Aditya Rizzo MD
[2018-12-18] MEDS: MORPHINE IV PRN ×3 (00:38→15:09)
[2018-12-18] MEDS: ZOSYN 2.25 GM in NS 50 ML IV SCH ×3 (04:55→19:47)
--- NOTE | 2018-12-18 08:05 | PROGRESS NOTE ---
DATE: 12/18/2018 SUBJECTIVE: This patient is resting comfortably in bed. Yesterday, the blood pressure was still dropping and she was started again on pressors but then they were stopped again. Her blood pressure has been up and down. We will try to keep the MAP at 65 or more. OBJECTIVE: Vital Signs: Temperature 98.1 degrees, pulse 86, respiratory rate 12, blood pressure 128/66, oxygen saturation 99 on 4 L of nasal cannula. HEENT: Head normocephalic. No trauma. PERRLA. Neck: Supple. No JVD. No masses. Central trachea. Chest: Decreased breath sounds, mostly at the bases, with some crepitus at the bases. Abdomen: Soft. Generalized tenderness to palpation. She does have some multiple new wounds and they are covered with dressings. No signs of active bleed. Bowel sounds hypoactive. Extremities: No edema, no clubbing, no cyanosis. Neurological Examination: This patient is awake and alert. She is oriented but she does have generalized weakness. Laboratory: Pending lab work at this moment. ASSESSMENT AND PLAN: 1. Septic shock. Yesterday, we restarted the vasopressors again but they were stopped yesterday after stabilizing her blood pressure. It looks like they used the vasopressors also during dialysis. Her heart rate stabilized, normal sinus rhythm. We will continue with the same management. We do have a positive blood culture, one out of two that showed gram-positive cocci. She is already on linezolid. 2. Atrial fibrillation with rapid ventricular response, resolved. Now, she is in normal sinus rhythm. She was on a diltiazem drip, which has been stopped already. 3. Left lower lobe pneumonia. Continue with antibiotics. 4. Possible peritonitis as well. Continue antibiotics. 5. Status post laparoscopic cholecystectomy with intraoperative cholangiogram, exploratory laparotomy with lysis of adhesions, mobilization of the colon, resection of a large left pelvic mass, and open appendectomy, postoperative day #3. Initially, this patient was admitted due to free abdominal air and severe pain. Surgery on board. The wound looks fine but the bowel sounds are hypoactive. 6. End-stage renal disease. Continue with dialysis per nephrology department. Yesterday, they removed around 700 mL. 7. Macrocytic anemia, likely chronic. 8. Hypertension. Actually, the blood pressure has been borderline low. We will continue with vasopressors as needed. 9. Morbid obesity with a body mass index of 48.4. Diet and exercise have been discussed but apparently she has severe knee osteoarthritis and she is not walking too much or at all. It is really important for this patient to start losing weight. 10. One out of two gram positive cocci in blood culture, aware. Continue with antibiotics. 11. Critical care time, 35 minutes. cc: Casper Veliz MD
[2018-12-18 08:39] LABS: BASO# 0.08 X1000 (0.0-0.2); BASO% 0.5 % (0.0-0.8); EOS# 0.39 X1000 (0.0-0.7); EOS% 2.5 % (0.0-10.0); HEMATOCRIT 32.8 % (37.0-47.0); HEMOGLOBIN 9.4 g/dL (12.0-16.0); IMM GRAN# 0.32 X1000 (0.0-0.04); IMM GRAN% 2.1 % (0.0-0.5); LYMPH# 0.79 X1000 (1.2-3.4); LYMPH% 5.1 % (20.5-51.1); MCH 32.4 PG (27-31); MCHC 28.7 g/dL (33-37); MCV 113.1 FL (81-99); MONO# 0.94 X1000 (0.11-0.59); MONO% 6.1 % (1.7-9.3); MPV 9.9 FL (7.4-10.4); NEUT# 12.99 X1000 (1.4-6.5); NEUT% 83.7 % (42.2-75.2); PLT 334 X1000 (130-400); RDW 13.2 % (11.5-14.5); WBC 15.51 X1000 (4.8-10.8)
[2018-12-18] MEDS: KLONOPIN PO SCH ×2 (08:44→20:21)
[2018-12-18] MEDS: HEPARIN SUBQ SCH ×2 (08:44→20:21)
[2018-12-18] MEDS: ZYVOX 600 MG/D5W 600 MG/300 ML IVPB IV SCH ×2 (08:44→20:21)
[2018-12-18] MEDS: PERIDEX MT SCH ×2 (08:44→20:21)
[2018-12-18 08:47] LABS: ALBUMIN 1.8 g/dL (3.5-5.0); CALCIUM 8.8 mg/dL (8.8-10.2); CREATININE 5.3 mg/dL (0.5-0.9); POTASSIUM 4.6 mmol/L (3.5-5.1)
--- NOTE | 2018-12-18 14:39 | NEPHROLOGY PROGRESS NOTE ---
DATE: 12/18/2018 Date Seen: 12/18/2018 Time Seen: 12:15 SUBJECTIVE: Ms. Carmen is resting quietly in bed. She remains in ICU. She is off her pressor support. She states that she is feeling just slightly better, though she continues to feel drained and lethargic. OBJECTIVE: Vital Signs: Temperature 98.5 degrees, blood pressure 103/40 heart rate is 80, respirations are 20. She is on 4 L nasal cannula. Last recorded saturation 96%. She has had 702 in. She has had 1 L out with 380 TNG, 700 on dialysis. LABS: Sodium is 139, potassium 4.6, chloride 96, CO2 26, BUN 30, creatinine 5.3, glucose 91. Her anion gap is 17, calcium 8.8, phosphorus 7.0, albumin 1.8. White count 15.5, hemoglobin 9.4, hematocrit 328, platelet count 334,000. The patient has blood culture showing gram-positive cocci with the E-coli strep B agalactiae. PHYSICAL EXAMINATION: General: This is a 58-year-old white female who appears chronically ill, no acute distress. Skin: Warm and dry. HEENT: Normocephalic, atraumatic. Conjunctiva is pale. She has RITA. Mucous membranes are dry. Neck: Supple. Trachea midline. No evidence of JVD. Cardiovascular: Regular rate and rhythm. No murmur or gallop is appreciated. Lungs: Clear to auscultation bilaterally. Equal excursion. Remains on O2 support. Abdomen: Tender to palpation. Quiet bowel sounds. Dressing remains dry and intact. Genitourinary: Not inspected minimal void with dialysis assist. Extremities: Have trace lower extremity and upper extremity edema. These are mostly dependent. No pitting evident. Neurological: She is alert and oriented x3. ASSESSMENT AND PLAN: 1. Chronic kidney disease stage 5D. The patient tolerated her dialysis treatment on Wednesday. We will plan for her regular treatment in the a.m. No indications for intervention today. 2. Electrolytes, acid-base balance, and anemia. These are acceptable. 3. Status postoperative day #3 for abdominal surgery. This is followed by Dr. Dennis and the primary care. 4. New onset atrial fibrillation with rapid ventricular response. The patient is currently off her Cardizem drip. Remains on p.o. followed by cardiology and the primary care. I would like to thank you for allowing us to follow with this patient. Dictated by PATTI Blum for Michael Leavitt MD cc: PATTI Blum MD
--- NOTE | 2018-12-18 15:03 | GENERAL SURGERY PROGRESS NOTE ---
DATE: 12/18/2018 SUBJECTIVE: The patient is tired and sore. She did sit up some yesterday. OBJECTIVE: She is afebrile. Vital signs are stable. NG tube output 300 mL.General: She is awake, alert, oriented x3. No acute distress. GI: Soft, moderately tender throughout. Incisional dressings clean and dry. LABORATORY: White blood cell count 15, hemoglobin 9.4, hematocrit 32. Electrolytes reviewed, unremarkable. ASSESSMENT/PLAN: 58-year-old female status post exploratory laparotomy, cholecystectomy, appendectomy and ovarian cystectomy with perioperative atrial fibrillation. She will remain NPO. Her NG tube remains on suction. We are awaiting return of bowel function. cc: Pastor Mehta MD
[2018-12-19] MEDS: ZOSYN 2.25 GM in NS 50 ML IV SCH ×4 (03:42→19:42)
[2018-12-19 04:57] LABS: BASO# 0.06 X1000 (0.0-0.2); BASO% 0.5 % (0.0-0.8); EOS# 0.42 X1000 (0.0-0.7); EOS% 3.3 % (0.0-10.0); HEMATOCRIT 31.2 % (37.0-47.0); HEMOGLOBIN 9.1 g/dL (12.0-16.0); IMM GRAN# 0.26 X1000 (0.0-0.04); LYMPH# 0.83 X1000 (1.2-3.4); LYMPH% 6.5 % (20.5-51.1); MCH 33.3 PG (27-31); MCHC 29.2 g/dL (33-37); MCV 114.3 FL (81-99); MONO# 0.82 X1000 (0.11-0.59); MONO% 6.4 % (1.7-9.3); MPV 9.7 FL (7.4-10.4); NEUT# 10.34 X1000 (1.4-6.5); NEUT% 81.3 % (42.2-75.2); PLT 333 X1000 (130-400); RBC 2.73 XMIL (4.2-5.4); RDW 12.9 % (11.5-14.5); WBC 12.73 X1000 (4.8-10.8)
[2018-12-19 05:07] LABS: PHOSPHORUS 8.1 mg/dL (2.7-4.5); POTASSIUM 4.5 mmol/L (3.5-5.1)
[2018-12-19 05:11] LABS: CREATININE 6.9 mg/dL (0.5-0.9)
--- NOTE | 2018-12-19 07:01 | Diag Imaging Result Doc PS360 ---
EXAM: CHEST-PORTABLE HISTORY: dyspnea TECHNIQUE: Portable chest single view COMPARISON: 12/17/2018 FINDINGS: Poor inspiratory effort. Heart is mildly prominent. Worsening pulmonary edema. There could be underlying pneumonia as well. No change in the nasogastric tube. Questionable small effusions. IMPRESSION: Worsening pulmonary edema. Electronically signed by Mike Banerjee 12/19/2018 6:59 AM
--- NOTE | 2018-12-19 07:52 | PROGRESS NOTE ---
DATE: 12/19/2018 SUBJECTIVE: This patient is resting in bed. She is still complaining of abdominal pain. Bowel sounds are decreased. She is not on pressors. She is not on fluids. X-ray showed pulmonary edema which is a little bit worse compared with yesterday. Blood pressure is borderline low with some episodes of low blood pressure in the 70s. OBJECTIVE: Vital Signs: Temperature 98.4 degrees, blood pressure 103/47, oxygen saturation 93 on 4 L of nasal cannula. HEENT: Head normocephalic. No trauma. PERRLA. Neck: Supple. No JVD. No masses. Central trachea. Chest: Decreased breath sounds, mostly at the bases, with crepitus. Abdomen: Soft. Generalized tenderness to palpation. She does have multiple wounds and they are covered with a dressing. No signs of active bleed. Bowel sounds hypoactive. Extremities: Trace edema. No clubbing, no cyanosis. Neurological Examination: The patient is sleepy but arousable. She is oriented. She is following commands. Laboratory: WBC 12.7, hemoglobin 9.1, hematocrit 31.2, platelets 333,000. Sodium 138, potassium 4.5, chloride 92, bicarbonate 29, BUN 40, creatinine 6.9, glucose 88, calcium 9, phosphorus 8.1, albumin 2. ASSESSMENT AND PLAN: 1. Septic shock. She is no longer on pressors. Blood pressure has been borderline low. WBC trending down. We will continue with broad-spectrum antibiotics. Blood culture showed Enterococcus faecium. It looks like vancomycin-resistant enterococcus. I will consult the infectious disease department. 2. Atrial fibrillation with rapid ventricular response, resolved. She is in sinus at this moment. She was on a diltiazem drip which has been stopped already a couple days ago. 3. Left lower lobe pneumonia. Continue with antibiotics. 4. Possible peritonitis as well. Continue with antibiotics. 5. One out of two positive blood cultures that showed Enterococcus faecium, resistant to vancomycin, possible vancomycin-resistant enterococcus. Infectious disease department has been consulted. 6. Status post laparoscopic cholecystectomy with intraoperative cholangiogram, exploratory laparotomy with lysis of adhesions, mobilization of the colon, resection of a large pelvic mass, and open appendectomy, postoperative day #4. Initially, this patient was admitted due to free abdominal air and severe abdominal pain. It looks like she did not have any perforation. Surgery on board. I do not hear bowel sounds today. 7. End-stage renal disease. Continue with dialysis as scheduled. Nephrology department on board. 8. Pulmonary edema. Hopefully, we are going to be able to remove some fluid with dialysis. 9. Hypertension. Actually, blood pressure has been borderline low with some episodes of low blood pressure. She has been on vasopressors before. Continue with vasopressors as needed as well. 10. Moderate morbid obesity with an elevated body mass index today of 46.6. 11. Critical care time 35 minutes. cc: Casper Veliz MD MTDD
[2018-12-19] MEDS: KLONOPIN PO SCH ×2 (08:29→20:07)
[2018-12-19] MEDS: PERIDEX MT SCH ×2 (08:33→20:04)
--- NOTE | 2018-12-19 08:40 | NEPHROLOGY PROGRESS NOTE ---
DATE: 12/19/2018 TIME SEEN: 0645. SUBJECTIVE: Ms. Carmen is resting quietly in bed. She has minimal complaints of abdominal discomfort. OBJECTIVE: Her most recent vital signs are temperature 98.4 degrees, blood pressure 114/46, heart rate 80, respirations 16. She is on 4 L nasal cannula. Last recorded saturation 91%. She has had 400 in and 550 out to [place]. Labs: Sodium 138, potassium 4.5, chloride 92, CO2 29, BUN 40, creatinine 6.9, glucose 88. Her anion gap is 40. Her calcium is 9, phosphorus 8.1, albumin 2. White count 12.73, hemoglobin 9.1, hematocrit 31.2 with a platelet count of 333,000. PHYSICAL EXAMINATION: General: This is a 58-year-old white female resting quietly in bed. She appears chronically ill, no acute distress. Skin: Warm and dry. HEENT: Normocephalic, atraumatic. Conjunctivae pale. She has RITA. Mucous membranes are dry. Neck: Supple. Trachea midline. No evidence of JVD. Cardiovascular: She is regular rate and rhythm. No murmur or gallop is appreciated. Lungs: Clear to auscultation bilateral with some tracheal fascicular noises upon inspiratory and expiratory effort. She remains on O2 support. Abdomen: Large, round, tender to palpation. Abdominal dressing is dry and intact. She has an NG tube to continued low intermittent. Genitourinary: Not inspected. Minimal void with dialysis assist. Extremities: Have trace lower extremity edema. She does have trace to 1+ upper extremity edema, mostly above into the upper chest wall dependent arm region. These were nonpitting. Neurological: She is alert and oriented x3. ASSESSMENT AND PLAN: 1. Chronic kidney disease stage 5D. Patient is due for her routine dialysis treatment today. We will place her on a 2K bath. She is to dialyze for 3.5 hours. We will attempt to pull patient to her outpatient dry weight as her BP tolerates. 2. Electrolytes and acid-base balance. These are acceptable with correction on dialysis. 3. Anemia. This is low but stable. 4. Status postoperative day #4 for abdominal surgery. This is followed by Dr. Dennis and the primary care team. 5. New onset of atrial fibrillation with rapid ventricular response. The patient is not on oral dosing of medication. This is followed by Cardiology and the primary care. I would like to thank you for allowing us to follow with this patient. Dictated by PATTI Blum for Maria Del Rosario Sotelo MD cc: PATTI Blum Pt seen and discussed with nurse practitioner on 12/19/18. Agree with above assessment and plan. [id number] encounter, data reviewed and patient discussed with Vi Olivia on 12/19/18. I agree with above assessment and plan of care. MTDD
[2018-12-19] MEDS: HEPARIN SUBQ SCH ×2 (08:42→20:04)
--- NOTE | 2018-12-19 09:21 | INFECTIOUS DISEASE CONSULT REP ---
DATE: 12/19/2018 CONCLUSION: The patient is status post laparoscopic cholecystectomy, resection of a large pelvic mass, appendectomy, and lysis of adhesions. The patient has 1 out of 2 blood cultures positive for vancomycin-resistant Enterococcus. There is a vaginal culture growing E coli, group B strep and Staph epidermidis. The patient also has bilateral infiltrates. RECOMMENDATIONS: I agree with treating the patient with Zosyn. I have increased the dose to every 6 hours. I have discontinued Zyvox because all of the organisms that I mentioned above are susceptible to Zosyn. DISCUSSION: The patient is unable provide a history and no family member is present. The patient came in with abdominal pain. She was found to have a large pelvic mass. She was taken to surgery by Dr. Dennis with the findings as mentioned above, and also the surgery that was done by Dr. Dennis is as mentioned above. The patient's CBC shows a white count of 12,730, hemoglobin 9.1, and platelet count 333,000. Creatinine is 6.9. GFR is 6. Liver function studies are normal. One out of two blood cultures is growing vancomycin-resistant Enterococcus. Vaginal culture grew E coli, group B strep and Staph epidermidis. A chest x-ray shows bilateral infiltrates. PAST MEDICAL HISTORY: Positive for end-stage renal disease. The patient is on dialysis. She has hypertension, congestive heart failure, anemia. She also has a large pelvic mass that was removed. The pathology report on the pelvic mass is pending. Obesity. PAST SURGICAL HISTORY: Positive for kidney stone surgery, an AV fistula in the left arm through which the patient is dialyzed. FAMILY HISTORY: There is no history of heart disease or kidney disease in first-degree relatives. SOCIAL HISTORY: The patient stopped smoking cigarettes 5 years ago. She lives with her . ALLERGIES: The only medication listed as the patient being allergic to is codeine. HOME MEDICATIONS: Include the following 1. Amlodipine. 2. Carvedilol. 3. Clonidine. 4. Losartan. PHYSICAL EXAMINATION: Vital Signs: Temperature is 98.3 degrees, pulse 83, respirations 15, blood pressure 125/52. Patient weighs 271 pounds. Generally: This is an obese, middle-aged female. She is lethargic. She does not appear to be in any acute distress. Head, eyes, ears, nose, and throat: No drainage was noted from the nose or ears. Neck: The patient did not seem to be having any pain when she moved her neck. Lungs: Clear to auscultation. Cardiovascular: Heart rate is regular. Abdomen: Soft and nontender to light palpation. The patient's midline incision has a dressing on it. The dressing is intact. Neurologic: The patient is lethargic. She did not respond to verbal stimuli. There was no tremor. Integument: No rash was noted. Thank you for the consult. cc: Reji Henley MD
--- NOTE | 2018-12-19 09:33 | CARDIOLOGY PROGRESS NOTE ---
DATE: 12/19/2018 CHIEF COMPLAINT: Irregular heart beat. SUBJECTIVE: Ms. Carmen is pretty much obtunded and unresponsive. She is encephalopathic at this time. OBJECTIVE: Vital signs: Blood pressure is 125/52, pulse is 83, temperature 98.3, respirations 15. The patient is really not very responsive. HEENT: She has an NG tube to suction. Chest: Symmetrical breath sounds, diminished bilaterally. Heart: Heart sounds are regular and rhythmic. Abdomen is slightly distended. Diminished bowel sounds. Extremities: No significant edema. Neurologic: Confused, obtunded. DIAGNOSTIC DATA: Sodium is 138, potassium 4.5, BUN is 40, creatinine 6.9. White cell count 12,730, hemoglobin 9.1, hematocrit 31.2. Her chest x-ray from today shows worsening pulmonary edema. Albumin is 2.0. Telemetry shows sinus rhythm. IMPRESSION: 1. The patient presented with peritonitis. 2. Paroxysmal atrial fibrillation secondary to the metabolic stress. 3. End stage renal disease on hemodialysis. 4. History of hypertension. 5. Morbidly obese. 6. Nutritionally compromised (septic with serum albumin of 2 gr%) RECOMMENDATIONS: At this time, the patient is really critical. We need to focus on improving her nutritional status. We will continue to monitor. Cardiac dunaway, there is really nothing acute going on. She is in sinus rhythm. We will follow her as needed. In case she goes into atrial fibrillation again, the way to go would be to put her on Daljit-Synephrine or phenylephrine, especially if her blood pressure is low, and initiate a Cardizem drip, and whenever the GI tract starts to work properly, initiate low dose beta charity. cc: Shyam Lee MD [facility]
[2018-12-19] MEDS ORDERED: TIGHT: 0.2 ML/HR FOR DIALYSIS MISC PRN (10:43)
[2018-12-19] MEDS ORDERED: NS 2,000 ML MISC PRN (10:43)
[2018-12-19] MEDS ORDERED: HEPARIN IV PRN (10:43)
[2018-12-19] MEDS ORDERED: D50W 250 ML, AMINOSYN 15% 500 ML, LIPOSYN 20% 250 ML IV SCH ×3 (10:45)
[2018-12-19] MEDS: MORPHINE IV PRN (13:05)
--- NOTE | 2018-12-19 13:57 | PROGRESS NOTE ---
DATE: 12/19/2018 SUBJECTIVE: Ms. Alexandria Carmen is postop day 4 from a laparoscopic cholecystectomy with intraoperative cholangiogram and also an open left ovarian cyst resection, also open appendectomy. Her white blood cell count is decreasing. She continues to hurt along her incision of her abdomen. She remains in the ICU. Clinically, she looks better than Wednesday her heart rate is 89, blood pressure 144/52, O2 saturation 96%. She is afebrile. Her white blood cell count continues to go down. It is 12. Her hematocrit is 31%. She is being dialyzed today. She will get some nutrition on dialysis. She remains on IV Zosyn and Zyvox. cc: Katharine Dennis MD
[2018-12-19] MEDS: PHENERGAN INJ PRN ×2 (16:20→23:16)
[2018-12-19] MEDS ORDERED: CARDIZEM IV ONE (17:25)
[2018-12-19] MEDS: NEO-SYNEPHRINE 50 MG in NS 250 ML IV SCH (17:30)
[2018-12-19] MEDS ORDERED: CARDIZEM 100 MG/NS 100 MG/100 ML IVPB IV SCH (17:30)
[2018-12-19] MEDS: CARDIZEM 125 MG/D5W 125 MG/125 ML IVPB IV SCH ×2 (17:40→18:00)
[2018-12-19] MEDS: ZOFRAN IV PRN (21:29)
[2018-12-20] MEDS: MORPHINE IV PRN (00:50)
[2018-12-20] MEDS: ZOSYN 2.25 GM in NS 50 ML IV SCH ×4 (02:01→19:53)
[2018-12-20] MEDS: KLONOPIN PO SCH ×3 (08:06→21:08)
[2018-12-20] MEDS: PERIDEX MT SCH ×2 (08:12→21:04)
[2018-12-20] MEDS: HEPARIN SUBQ SCH ×2 (08:12→21:03)
--- NOTE | 2018-12-20 08:24 | PROGRESS NOTE ---
DATE: 12/20/2018 SUBJECTIVE: This patient is lying in bed. She is basically lethargic, but apparently she has been following commands a little bit on and off. She grimaces with pain stimulation. Yesterday she had an episode of hypotension, and also she started having atrial fibrillation with RVR again. She was placed on diltiazem drip and also on vasopressors. Cardiology Department is following this patient closely. She is basically bed bound. She is apparently not passing gas and/or having BMs. Her recovery is going to be really slow. I will try to avoid pain medication and Phenergan for nausea or vomiting since she is lethargic. OBJECTIVE: Vital Signs: Temperature 98.3 degrees, pulse 70, respiratory rate 21, blood pressure 123/57, and oxygen saturation 96% on 4 liters of nasal cannula. HEENT: Head is normocephalic, no trauma. PERRLA. Neck: Supple, no JVD. No masses. Central trachea. Chest: Decreased breath sounds mostly at the bases with crepitus. She has scattered rhonchi bilaterally. Abdomen: Soft. Generalized tenderness to palpation. She has multiple wounds covered with a dressing. No signs of active bleeding. Bowel sounds decreased. I do not hear any bowel sounds at this moment. Extremities: Trace edema. No clubbing, no cyanosis. Neurological: The patient is lethargic. She was opening her mouth upon command. As per the nurse, she has been following commands a little bit on and off. She moves all 4 extremities spontaneously, especially with pain stimulation. LABORATORY DATA: WBC 12.7, hemoglobin 9.1, hematocrit 31.2, platelets 333,000. Sodium 138, potassium 4.5, chloride 92, bicarbonate 29, BUN 40, creatinine 6.9, glucose 88, calcium 9, phosphorus 8.1, albumin 2. ASSESSMENT AND PLAN: 1. Septic shock. She was placed back on pressors because of her low blood pressure yesterday. Also, she started having atrial fibrillation with rapid ventricular response. She has been coughing up some phlegm. WBC is getting better. Blood culture showed Enterococcus faecium, and it looks like vancomycin-resistant Enterococcus. Infectious Disease Department on board. 2. Paroxysmal atrial fibrillation secondary to metabolic stress with rapid ventricular response. She has been placed back on vasopressors and diltiazem drip. We will continue to monitor. Cardiology on board. 3. Pneumonia, likely bilaterally at the bases. Continue with antibiotics per Infectious Disease Department. 4. One out of two blood cultures with vancomycin-resistant Enterococcus, susceptible to Zosyn. We will continue following the recommendations of Infectious Disease Department. 5. Likely peritonitis. Aware. Continue with the same treatment. WBC is trending down. 6. Status post laparoscopic cholecystectomy with intraoperative cholangiogram, exploratory laparotomy with lysis of adhesions, mobilization of the colon, resection of a large pelvic mass, and upper appendectomy, postoperative day number 5. Initially this patient was admitted due to free abdominal air and severe abdominal pain, and we thought at the beginning that she may have a perforation. Surgery on board. No bowel sounds. 7. End-stage renal disease. Continue with dialysis as scheduled. It looks like yesterday during dialysis this patient started having problem with the blood pressure and atrial fibrillation with rapid ventricular response. 8. Pulmonary edema. We will continue to monitor. Hopefully, we are going to continue to remove fluid with dialysis. 9. Morbid obesity with a body mass index of 46.6. 10. Critical care time 35 minutes. 11. Encephalopathy. This patient today is lethargic. She is not following commands consistently. She moves and she grimaces with pain stimulation. SUMMARY/DISCUSSION: Overall, this patient seems to be remarkably sick. She is basically bed bound and that does not help at all. Today she is lethargic. She has been having atrial fibrillation with rapid ventricular response and hypotension. We will continue with antibiotics per Infectious Disease Department. Cardiology and Nephrology Department on board as well. Surgery is following this patient closely. She is not passing gas or having bowel movements. CRITICAL CARE TIME: The critical care time was 35 minutes. cc: Casper Veliz MD
--- NOTE | 2018-12-20 08:34 | INFECTIOUS DISEASE PROGRESS NO ---
DATE: 12/20/2018 PRESENT ILLNESS: The patient is status post cholecystectomy, resection of a large pelvic mass, appendectomy, and lysis of adhesions. The patient has 1 of 2 blood cultures growing a vancomycin- resistant Enterococcus. A vaginal culture is growing E coli, group B strep, and Staph epidermidis. On chest x-ray, the patient has bilateral infiltrates. MEDICATIONS: The patient is on Zyvox, the dose is 2.25 g IV every 6 hours because of the patient's renal failure. PHYSICAL EXAMINATION: Vital Signs: Temperature is 98.8 degrees, pulse 70, respirations 21, blood pressure 123/57. General: The patient is obtunded. She does not appear to be in any acute distress. Head, eyes, ears, nose, throat: The patient is wearing an oxygen mask. I do not see any drainage coming from her nose or ears. I cannot a good view in her mouth. Neck: No stiffness. Lungs: Clear to auscultation. Cardiovascular: Heart rate is regular. Abdomen: Soft. It does not appear to be tender to light palpation. The patient has a large dressing in place. Extremities: The patient has a left arm AV fistula which is functional. Neurologic: The patient is slightly obtunded. She did not respond to verbal stimuli. Integument: No rash noted. LAB AND X-RAY: There is no new radiographic study as of yet today. The patient does not have any new laboratory studies. [place], [place] [address], hemoglobin 9.1, platelet count 333,000. Creatinine is 6.9. GFR is 6. Blood culture is growing an Enterococcus and 1 out of 2 blood cultures is growing Enterococcus which is vancomycin resistant. The patient's vaginal culture is growing E coli, beta strep and Staph epidermidis. ASSESSMENT AND PLAN: My plan is to continue with Zosyn to treat the patient's bacteremia and also to treat possible pneumonia. I plan to continue Zosyn and I am getting repeat blood cultures today. My plan is to continue Zosyn pending results of repeat blood cultures and also the pathology report of the patient's pelvic mass. COMORBIDITIES: The patient has end-stage renal disease, she is on dialysis. She also has congestive heart failure and anemia. The patient also has a pelvic mass with the pathology report of the mass pending. cc: Reji Henley MD
--- NOTE | 2018-12-20 08:54 | CARDIOLOGY PROGRESS NOTE ---
DATE: 12/20/2018 CHIEF COMPLAINT: Abdominal pain, irregular heartbeat. SUBJECTIVE: Ms. Carmen is more with it today. She evidently has abdominal pain when the abdomen is pressed. NG tube was removed yesterday. She had a bout of atrial fibrillation with rapid response yesterday and that required reinstitution of Daljit-Synephrine and Cardizem; however, she quickly went back into sinus rhythm. The patient responds vaguely to verbal commands. She does not move much. She is in a state of confusion. OBJECTIVE: VITAL SIGNS: Temperature is 98.3 degrees, pulse 70 beats per minute, blood pressure 123/57, respirations 21. GENERAL: She responds to verbal commands and to painful stimuli. She appears to be generally weak. HEENT: Unremarkable. She is breathing through her mouth so her oral mucosa is somewhat dry. CHEST: Reveals diminished breath sounds at both bases. HEART: Sounds are regular rhythmic at this time. ABDOMEN: Slightly distended and diffusely tender. Bowel sounds are markedly diminished. EXTREMITIES: Show trace edema. NEUROLOGICAL: Follows commands. Chest x-ray yesterday showed worsening pulmonary edema. Telemetry shows sinus rhythm. LABORATORY WORK: From today is pending. IMPRESSION: 1. Patient who has peritonitis. 2. Postoperative day #5. 3. Paroxysmal atrial fibrillation. 4. Morbid obesity. 5. End-stage renal disease on hemodialysis. 6. Confusional state probably related to septic state or systemic inflammatory response. RECOMMENDATIONS: At this time, we will continue supportive measures. We will use Daljit-Synephrine and Cardizem as needed to control her arrhythmia. Dr. Dennis and the Nephrology Team are really in charge of making sure that her nutritional status and volume status is adequate. We will follow her along. cc: Shyam Lee MD [facility]
[2018-12-20 08:55] LABS: ALBUMIN 2.4 g/dL (3.5-5.0); CALCIUM 9.3 mg/dL (8.8-10.2); CREATININE 4.7 mg/dL (0.5-0.9); PHOSPHORUS 6.2 mg/dL (2.7-4.5); POTASSIUM 4.4 mmol/L (3.5-5.1)
[2018-12-20 09:25] LABS: BASO# 0.15 X1000 (0.0-0.2); BASO% 1.3 % (0.0-0.8); EOS# 0.22 X1000 (0.0-0.7); EOS% 1.9 % (0.0-10.0); HEMATOCRIT 35.5 % (37.0-47.0); IMM GRAN# 0.66 X1000 (0.0-0.04); IMM GRAN% 5.7 % (0.0-0.5); LYMPH% 7.7 % (20.5-51.1); MCH 32.9 PG (27-31); MCHC 28.2 g/dL (33-37); MCV 116.8 FL (81-99); MONO# 0.84 X1000 (0.11-0.59); MONO% 7.2 % (1.7-9.3); MPV 9.8 FL (7.4-10.4); NEUT% 76.2 % (42.2-75.2); PLT 355 X1000 (130-400); RBC 3.04 XMIL (4.2-5.4); WBC 11.67 X1000 (4.8-10.8)
[2018-12-20 09:42] LABS: BANDS 2 % (0-1); LYMPHS 9 % (21-51); MONO 8 % (1-9); SEGS 79 % (42-75)
--- NOTE | 2018-12-20 10:17 | NEPHROLOGY PROGRESS NOTE ---
DATE: 12/20/2018 Date Seen: 12/20/2018 Time Seen: 0700 SUBJECTIVE: Ms. Carmen is resting quietly in bed. She is very lethargic today. She is difficult to arouse. She does open her eyes to verbal and tactile stimuli and drifts immediately back off to sleep. OBJECTIVE: Her current vital signs: Temperature 98.3 degrees, blood pressure 122/57, heart rate 70, respirations 16. She is on 50% Ventimask. Her last recorded saturation 95%. She has had 315 mL in. She has had 400 mL out to her NG tube before being pulled. LABS: Are currently pending this a.m. Previous potassium of 4.5 with a hemoglobin of 9.1. PHYSICAL EXAMINATION: General: This is a 58-year-old white female, status post cholecystectomy who is resting quietly in bed. She had dialysis treatment yesterday. Did not tolerate this well, went back into atrial fibrillation with RVR with a drop in her blood pressure now remains on Cardizem and Daljit-Synephrine. HEENT: Normocephalic atraumatic conjunctivae pale she has sluggish RITA. Mucous membranes are dry. Face mask remains intact. Unable to determine JVD today. Cardiovascular: She is sinus rhythm on the monitor at this time. Rate controlled in the 70s. Lungs: Diminished breath sounds bilateral. She remains on Ventimask. NG tube has been removed. Shallow inspiratory effort. Abdomen: Large, round. No tenderness noted to light palpation. She has very faint bowel sounds more so to the right upper quadrant. Abdominal dressing remains dry and intact. Genitourinary: Not inspected. Minimal void with dialysis assist. Extremities: Continues with trace lower extremity edema. 1+ upper extremity edema across the chest. Neurological: Very lethargic today. Opens eyes to verbal stimuli, calling her name. ASSESSMENT AND PLAN: 1. Chronic kidney disease stage 5D. The patient had her routine dialysis treatment yesterday. Did not tolerate this treatment well. We had to take her off an hour early. We resuscitated her with normal saline. She was started on a Daljit-Synephrine drip. She was also started on Cardizem for atrial fibrillation with rapid ventricular response. No indications for intervention at this time. We evaluate her last chest x-ray. 2. Electrolytes and acid-base balance. These are currently pending this a.m. These have been acceptable. 3. Anemia, this has been low with the last hemoglobin documented at 9.1. 4. Again onset of atrial fibrillation with rapid ventricular response while on dialysis. Currently, he continues on Cardizem drip. Followed by cardiology and the primary care. 5. Status postoperative day # 5 abdominal surgery, followed by Dr. Dennis and primary care. I would like to thank you for allowing us to follow with this patient. Dictated by PATTI Blum for Maria Del Rosario Sotelo MD cc: PATTI Blum [id number] encounter, data reviewed and patient discussed with Vi Olivia on 12/20/18. I agree with above assessment and plan of care. ROSSYD
[2018-12-20] MEDS: CARDIZEM 125 MG/D5W 125 MG/125 ML IVPB IV SCH (11:46)
--- NOTE | 2018-12-20 18:38 | PROGRESS NOTE ---
DATE: 12/20/2018 Ms Carmen remains in the ICU. She went into atrial fibrillation again which required IV medications to support her blood pressure. Those are now off. Her abdomen is okay. Her incision is without infection. She is receiving intermittent dialysis. Her white blood cell count is improving with IV antibiotics. Her heart rate is 73, blood pressure 138/49, O2 saturation 97%. She has a low-grade temperature 99 degrees. Her white blood cell count is 11 and electrolytes show a BUN of 35, creatinine 4.7. cc: Katharine Dennis MD
[2018-12-21] MEDS: ZOSYN 2.25 GM in NS 50 ML IV SCH ×4 (01:50→20:12)
[2018-12-21] MEDS: MORPHINE IV PRN (05:16)
[2018-12-21 05:58] LABS: INR 0.98; PROTIME 13.1 Seconds (11.0-16.0)
[2018-12-21 06:23] LABS: BASO# 0.21 X1000 (0.0-0.2); BASO% 2.2 % (0.0-0.8); EOS% 5.2 % (0.0-10.0); HEMATOCRIT 36.1 % (37.0-47.0); HEMOGLOBIN 10.5 g/dL (12.0-16.0); IMM GRAN# 0.59 X1000 (0.0-0.04); IMM GRAN% 6.1 % (0.0-0.5); LYMPH# 0.92 X1000 (1.2-3.4); LYMPH% 9.5 % (20.5-51.1); MCH 33.7 PG (27-31); MCHC 29.1 g/dL (33-37); MCV 115.7 FL (81-99); MONO# 0.65 X1000 (0.11-0.59); MONO% 6.7 % (1.7-9.3); MPV 9.9 FL (7.4-10.4); NEUT# 6.77 X1000 (1.4-6.5); NEUT% 70.3 % (42.2-75.2); PLT 326 X1000 (130-400); RBC 3.12 XMIL (4.2-5.4); RDW 12.9 % (11.5-14.5); WBC 9.64 X1000 (4.8-10.8)
[2018-12-21 06:28] LABS: ALBUMIN 2.4 g/dL (3.5-5.0); CALCIUM 8.9 mg/dL (8.8-10.2); POTASSIUM 5.2 mmol/L (3.5-5.1)
[2018-12-21] MEDS ORDERED: TIGHT: 0.2 ML/HR FOR DIALYSIS MISC PRN (06:31)
[2018-12-21] MEDS ORDERED: NS 2,000 ML MISC PRN (06:31)
[2018-12-21] MEDS ORDERED: HEPARIN IV PRN (06:31)
[2018-12-21] MEDS ORDERED: ALBUMIN 25% IV ONE (06:32)
--- NOTE | 2018-12-21 07:12 | Diag Imaging Result Doc PS360 ---
EXAM: CHEST-PORTABLE 12/21/2018 HISTORY: dyspnea TECHNIQUE: AP portable at 0527 COMMENT: Compared to 12/19/2018 the NG tube has been removed. There continues to be interstitial opacity as well as denser coarse opacities bilaterally particularly in the lower lobes. IMPRESSION: Pulmonary edema with atelectasis and/or pneumonia. Electronically signed by Rony Gerardo 12/21/2018 7:10 AM
--- NOTE | 2018-12-21 07:40 | PROGRESS NOTE ---
DATE: 12/21/2018 SUBJECTIVE: Patient is still lying in bed. She is more awake today, but she has been having episodes of somnolence. She is following commands for me. She is extremely weak. We will continue with diltiazem drip until she can tolerate p.o. I do believe today she will have a PICC line placed so she can get TPN. I will continue with the same management for now. WBC normalized. OBJECTIVE: Vital Signs: Temperature 98.3 degrees, pulse 90, respiratory rate 27, blood pressure 169/95, and oxygen saturation 97% on 4 liters of nasal cannula. HEENT: Head normocephalic, no trauma. PERRLA. Neck: Supple. No JVD. No masses. Central trachea. Chest: Decreased breath sounds, mostly at the bases, with crepitus, some scattered rhonchi bilaterally. Abdomen: Soft. Generalized tenderness to palpation. Multiple wounds covered with a dressing. No signs of active bleeding. Bowel sounds decreased. I do not hear any bowel sounds today. Extremities: Trace edema. No clubbing, no cyanosis. Neurological: This patient is sleepy, but arousable. She followed commands for me today, but she is really weak. LABORATORY DATA: WBC 9.6, hemoglobin 10.5, hematocrit 36.1, platelets 326,000. Sodium 143, potassium 5.2, chloride 96, bicarbonate 23, BUN 50, creatinine 6, glucose 111, calcium 8.9, phosphorus 8, albumin 2.4. ASSESSMENT AND PLAN: 1. Septic shock, better, continue to monitor. We have a positive blood culture that showed Enterococcus faecium. Vancomycin-resistant Enterococcus, and also probably this patient has bilateral lower lobe pneumonia, possible peritonitis. She has been placed on antibiotics by Infectious Disease Department. We will continue with the same management. WBC normalized. 2. Paroxysmal atrial fibrillation secondary to metabolic stress with rapid ventricular response. Continue with the diltiazem drip until she can tolerate oral. 3. Pneumonia, bilaterally at the bases, continue antibiotics per Infectious Disease Department. 4. One out of two blood cultures that showed vancomycin-resistant Enterococcus, susceptible to Zosyn. We will continue to follow the recommendations of Infectious Disease Department. 5. Likely peritonitis, aware. 6. Status post laparoscopic cholecystectomy with intraoperative cholangiogram, exploratory laparotomy with lysis of adhesions, mobilization of the colon, resection of a large pelvic mass, and an open appendectomy, postoperative day number 6. Initially, this patient was admitted due to free air and severe abdominal pain. We thought at the beginning she had a perforation. Surgery on board. No bowel sounds. 7. End-stage renal disease. Continue with dialysis as scheduled. 8. Pulmonary edema. We will monitor. Oxygen saturation has been stable with oxygen. 9. Morbid obesity with a body mass index of 46.5 aware. 10. Encephalopathy. This patient has been lethargic and somnolent on and off. We will continue to monitor. She seems to be more awake today. CRITICAL CARE TIME: 35 minutes. SUMMARY/FINDINGS: Overall, this patient is still remarkably sick. She is basically bedbound, and that is not that is not helpful at all. We will continue with same management for now. Cardiology Department as well as Infectious Disease Department on board. Surgery is following this patient closely, and probably she will have a central line placed today. Likely we will need to start this patient on TPN. cc: Casper Veliz MD
--- NOTE | 2018-12-21 08:28 | Diag Imaging Result Doc PS360 ---
EXAM: CHEST-PORTABLE 12/21/2018 HISTORY: central line placement TECHNIQUE: AP portable supine at 0815 COMMENT: There is a feeding tube with its tip below the diaphragm in the distal stomach. There are apparent atelectatic opacities in the lung bases. There is a venous catheter the tip of which is seen in the area of the superior vena cava. The upper portion of the catheter is not included on the study. The apices of the lungs are not included on the study. IMPRESSION: Feeding tube in the stomach. Central venous catheter in the superior vena cava. Electronically signed by Rony Gerardo 12/21/2018 8:25 AM
--- NOTE | 2018-12-21 08:30 | INFECTIOUS DISEASE PROGRESS NO ---
DATE: 12/21/2018 PRESENT ILLNESS: The patient is status post cholecystectomy, resection of a large pelvic mass, appendectomy, and lysis of adhesions. The patient has a vancomycin-resistant enterococcal bacteremia. There is a culture labeled vaginal culture, but I talked to Dr. Dennis, and he said that is a mistake. The culture came from the patient's abdomen, and it grew Escherichia coli, group B strep, and Staph epidermidis. Also, on chest x-ray, the patient has bilateral infiltrates. The patient also has peritonitis secondary to the perforation that occurred prior to surgery. The patient also has a large pelvic mass, which was removed at surgery. MEDICATIONS: The patient is on Zosyn at a dose of 2.25 grams IV every 6 hours. The dose has been lowered because of the patient's renal failure. PHYSICAL EXAMINATION: Vital Signs: Temperature is 99 degrees, pulse 90, respirations 27, blood pressure 169/95. General: The patient is more awake today. HEENT: No drainage noted from the nose or ears. I was unable to get a good look at her mouth. Neck: There did not seem to be any pain when she moved her neck. Lungs: Clear to auscultation. Cardiovascular: Heart rate is regular. Abdomen: Soft to light palpation. I removed the dressing from the patient's incision, and there is some sanguinopurulent drainage coming from the incision. Extremities: The patient has a left arm AV fistula, which is working. Neurologic: The patient is slightly awake. She is moaning a little bit. She did move her arms. Integument: No rash noted. IMAGING AND LABORATORY DATA: The chest x-ray shows bilateral opacities. The CBC today shows a white count of 9640, hemoglobin 10.5, and platelet count 326,000. Creatinine is 6. GFR is 7. ASSESSMENT AND PLAN: The patient has peritonitis secondary to perforation of her bowel. She also has pneumonia and a bacteremia. My plan is to continue Zosyn for at least 14 days. COMORBIDITIES: The patient has end-stage renal disease. She is on dialysis. She also has congestive heart failure and anemia. The patient has a pelvic mass, and the pathology is pending. cc: Reji Henley MD
--- NOTE | 2018-12-21 08:32 | OPERATIVE NOTE ---
PROCEDURE DATE: 12/21/2018 PREOPERATIVE DIAGNOSES: 1. Atrial fibrillation requiring intravenous V medications. 2. Intra-abdominal infection requiring intravenous antibiotics. 3. End-stage renal disease requiring chronic hemodialysis. 4. Morbid obesity. POSTOPERATIVE DIAGNOSES: 1. Atrial fibrillation requiring intravenous V medications. 2. Intra-abdominal infection requiring intravenous antibiotics. 3. End-stage renal disease requiring chronic hemodialysis. 4. Morbid obesity. PRINCIPAL PROCEDURE: Ultrasound-guided right internal jugular central venous line. SURGEON: Katharine Dennis M.D. ANESTHESIA: Local. ESTIMATED BLOOD LOSS: 10 mL. DRAINS: None. INDICATIONS: Ms. Alexandria Carmen is a 58-year-old, morbidly obese, white female with end-stage renal disease, in our ICU postoperative from an abdominal surgery. She needs IV access, and we are asked to place a central venous line. DESCRIPTION OF PROCEDURE: The patient was placed flat in her bed, ICU 2. Initially, I attempted a right subclavian access, but I could not access the vein, so I used ultrasound guidance to identify the right internal jugular vein. It must be noted that the area was prepped and draped within a sterile field. I used local anesthetic at the puncture site, and using ultrasound guidance, I was able to access her right internal jugular vein under direct vision of ultrasound. We used an 18-gauge needle, and through this needle I placed a guidewire. The needle was removed. I placed a dilator over the guidewire, and then I placed a triple-lumen antibiotic-coated central venous line over the guidewire, into the superior vena cava. The guidewire was removed. All 3 ports were flushed with saline and were functional. I secured the catheter to the skin with two 3- 0 silk stitches, followed by dressings. She tolerated the procedure well. Will get a postprocedure chest x-ray for position. We also placed a feeding tube into her stomach. cc: Katharine Dennis MD
[2018-12-21] MEDS: PERIDEX MT SCH ×2 (08:54→20:12)
[2018-12-21] MEDS: KLONOPIN PO SCH ×3 (08:57→20:12)
[2018-12-21] MEDS: HEPARIN SUBQ SCH ×2 (08:57→22:02)
[2018-12-21] MEDS: CARDIZEM 125 MG/D5W 125 MG/125 ML IVPB IV SCH (08:57)
[2018-12-21] MEDS: ZOFRAN IV PRN (09:36)
--- NOTE | 2018-12-21 13:55 | NEPHROLOGY PROGRESS NOTE ---
DATE: 12/21/2018 TIME SEEN: 0800. SUBJECTIVE: Ms. Carmen is currently resting in bed. She has just had a triple-lumen CVL placed to her right IJ per Dr. Dennis. She is expressing discomfort to her right neck. She is to have an NG tube replaced this a.m. secondary to chronic nausea. OBJECTIVE: Her most recent vital signs are temperature is 98.3 degrees, blood pressure 161/64, heart rate 102, respirations are 14. She is on 4 L nasal cannula. Last recorded saturation 97%. She has had 280 in. She has had 0 recorded out with chronic emesis and dry heaves. LABORATORY DATA: Sodium 143, potassium 5.2, chloride 96, CO2 23, BUN 50, creatinine 6, glucose is 111. Her anion gap is 24, calcium 8.9, phosphorus is 8. Her albumin is 2.4. White count 9.64, hemoglobin 10.5, hematocrit 36.1 with a platelet count of 326,000. PHYSICAL EXAMINATION: General: This is a 58-year-old white female resting quietly in bed. She is in moderate distress secondary to recent procedure and chronic nausea. Her skin is slightly diaphoretic. HEENT: Normocephalic, atraumatic, conjunctivae pale. Mucous membranes are dry. The patient is currently wearing 4 L nasal cannula. Unable to determine JVD, now with a CVL to the right IJ. Cardiovascular: She is slightly tachycardic, sinus rhythm. She has been mostly rate controlled. She remains on a low-dose Cardizem drip. Lungs: Diminished breath sounds bilaterally. Equal excursion, now on O2. NG tube had been removed yesterday. It is to be replaced today. Abdomen: Large, round, tender. Her dressing has been removed. It exposed to air on inspection with Dr. Dennis at the bedside to have a dressing replaced. This is well approximated. Hypo bowel sounds present. Genitourinary: Not inspected. Minimal void with dialysis assist. Extremities: Continues with 1+ upper extremity edema across her chest and upper arms and hands. No edema to the lower extremities. Neurological: She is awake and alert and in discomfort. ASSESSMENT AND PLAN: 1. Chronic kidney disease stage 5D. The patient is due for her routine dialysis treatment today after discussion with Dr. Sotelo. We will give 50 g of albumin prior to her dialysis treatment. We will clean her blood today without any ultrafiltration. She is to be placed on a 2K bath. We will dialyze for 3.5 hours. 2. Electrolytes and acid-base balance with correction on dialysis. 3. Anemia. This is stable. Hemoglobin of 10.5. 4. Status postoperative day #6 for abdominal surgery followed by Dr. Dennis and the primary care team. 5. Atrial fibrillation. Patient remains on Cardizem low-dose drip. She is currently off her Levophed. I would like to thank you for allowing us to follow with this patient. Dictated by PATTI Blum for Maria Del Rosario Sotelo MD cc: PATTI Blum
[2018-12-21] MEDS: D50W 250 ML, AMINOSYN 15% 500 ML, LIPOSYN 20% 250 ML MISC SCH ×3 (17:30)
[2018-12-21 19:51] LABS: ALLEN TEST YES; BE 2.9 mmoll (-3.0-3.0); BLOOD TYPE ARTERIAL; HCO3-(ACT) 27.2 mmoll (20.0-26.0); METHB 0.6 % (0.0-1.5); O2(CT) 11.8 mL/dL (15.0-23.0); PO2(98.6) 92 mmHg (60-100); SAMPLE BLOOD; SAO2 97.9 % (95.0-100.0); THB 8.6 g/dL (11.5-17.4); pH(98.6) 7.24 (7.35-7.45)
[2018-12-21 19:52] LABS: MODALITY VENTIMASK
[2018-12-21 19:53] LABS: PCO2(98.6) 73 mmHg (35-45)
[2018-12-21 22:53] LABS: ALLEN TEST YES; BE 3.7 mmoll (-3.0-3.0); BLOOD TYPE ARTERIAL; HCO3-(ACT) 27.8 mmoll (20.0-26.0); METHB 0.5 % (0.0-1.5); O2(CT) 11.8 mL/dL (15.0-23.0); O2HB 96.6 % (95.0-99.0); PO2(98.6) 96 mmHg (60-100); SAMPLE BLOOD; SAO2 98.5 % (95.0-100.0); THB 8.6 g/dL (11.5-17.4); pH(98.6) 7.25 (7.35-7.45)
[2018-12-21 22:54] LABS: MODALITY BI PAP; PCO2(98.6) 73 mmHg (35-45)
[2018-12-22] MEDS: ZOSYN 2.25 GM in NS 50 ML IV SCH ×4 (01:30→21:01)
[2018-12-22] MEDS ORDERED: QUELICIN IV ONE (02:30)
[2018-12-22] MEDS ORDERED: ATIVAN IV PRN (02:30)
[2018-12-22] MEDS ORDERED: VERSED IV ONE (02:40)
[2018-12-22] MEDS ORDERED: QUELICIN ONE (02:40)
[2018-12-22] MEDS ORDERED: VERSED ONE (02:40)
[2018-12-22] MEDS ORDERED: DIPRIVAN 1% 1,000 MG/100 ML BOTTLE ONE ×2 (02:45→05:08)
[2018-12-22] MEDS: DIPRIVAN 1% 1,000 MG/100 ML BOTTLE IV SCH ×9 (02:47→21:50)
[2018-12-22] MEDS ORDERED: ATIVAN ONE (03:30)
[2018-12-22 04:58] LABS: ALLEN TEST YES; BE 5.8 mmoll (-3.0-3.0); BLOOD TYPE ARTERIAL; HCO3-(ACT) 29.5 mmoll (20.0-26.0); O2(CT) 12.9 mL/dL (15.0-23.0); PCO2(98.6) 40 mmHg (35-45); PO2(98.6) 315 mmHg (60-100); SAMPLE BLOOD; SAO2 98.8 % (95.0-100.0); SRATE 24 BPM; THB 8.8 g/dL (11.5-17.4); TVOL 500 mL; pH(98.6) 7.48 (7.35-7.45)
[2018-12-22 05:39] LABS: BASO# 0.05 X1000 (0.0-0.2); BASO% 0.6 % (0.0-0.8); EOS# 0.42 X1000 (0.0-0.7); EOS% 5.3 % (0.0-10.0); HEMATOCRIT 28.8 % (37.0-47.0); HEMOGLOBIN 8.4 g/dL (12.0-16.0); IMM GRAN# 0.33 X1000 (0.0-0.04); IMM GRAN% 4.1 % (0.0-0.5); LYMPH# 0.84 X1000 (1.2-3.4); LYMPH% 10.5 % (20.5-51.1); MCH 32.9 PG (27-31); MCHC 29.2 g/dL (33-37); MCV 112.9 FL (81-99); MONO# 0.63 X1000 (0.11-0.59); MONO% 7.9 % (1.7-9.3); NEUT% 71.6 % (42.2-75.2); PLT 269 X1000 (130-400); RBC 2.55 XMIL (4.2-5.4); RDW 12.6 % (11.5-14.5); WBC 7.97 X1000 (4.8-10.8)
[2018-12-22 06:02] LABS: ALLEN TEST YES; BE 3.3 mmoll (-3.0-3.0); BLOOD TYPE ARTERIAL; HCO3-(ACT) 27.5 mmoll (20.0-26.0); METHB 0.7 % (0.0-1.5); O2(CT) 14.6 mL/dL (15.0-23.0); O2HB 96.9 % (95.0-99.0); PO2(98.6) 142 mmHg (60-100); SAMPLE BLOOD; SAO2 98.8 % (95.0-100.0); SRATE 18 BPM; THB 10.5 g/dL (11.5-17.4); pH(98.6) 7.22 (7.35-7.45)
[2018-12-22 06:04] LABS: MODALITY BI PAP; PCO2(98.6) 80 mmHg (35-45)
[2018-12-22 06:06] LABS: MODALITY VENTILATOR
[2018-12-22 06:10] LABS: ALBUMIN 2.8 g/dL (3.5-5.0); CALCIUM 8.7 mg/dL (8.8-10.2); CREATININE 4.7 mg/dL (0.5-0.9); PHOSPHORUS 2.3 mg/dL (2.7-4.5); POTASSIUM 3.4 mmol/L (3.5-5.1)
[2018-12-22] MEDS ORDERED: NS 2,000 ML MISC PRN (06:48)
[2018-12-22] MEDS ORDERED: ALBUMIN 25% IV ONE (06:50)
--- NOTE | 2018-12-22 06:50 | Diag Imaging Result Doc PS360 ---
CHEST-PORTABLE - 12/22/2018 INDICATION: dyspnea COMPARISON: 12/21/2018 FINDINGS: There is a right internal jugular central line in good position with the catheter tip at the lower SVC. Endotracheal tube in good position in the midthoracic trachea. Nasogastric feeding tube is in good position below the diaphragms. There is cardiomegaly and significant pulmonary vascular congestion. There is some mild interstitial pulmonary edema. There is some mild bibasilar opacification compatible with atelectasis or effusion. IMPRESSION: See findings. Electronically signed by Chance Sommers 12/22/2018 6:48 AM
[2018-12-22] MEDS: PROTONIX IV SCH (07:12)
--- NOTE | 2018-12-22 07:40 | PROGRESS NOTE ---
DATE: 12/22/2018 SUBJECTIVE: This patient has been intubated during the night. She started having hypercarbic respiratory failure with respiratory acidosis that was getting worse even with the BiPAP machine. Pulmonary Department has been consulted. Her feeding tube has been stopped at this moment, but we will restart this during the morning and check the residuals. No bowel movement so far, but she does have some bowel sounds. I have placed this patient on pantoprazole IV, and the ABGs looks better today in the morning. OBJECTIVE: Vital Signs: Temperature 99.4 degrees, pulse 72, respiratory rate 24, blood pressure 119/55, and oxygen saturation 100% on mechanical ventilation. HEENT: Head normocephalic. No trauma. PERRLA. Neck: Supple. No JVD. No masses. Central trachea. Chest: Decreased breath sounds bilaterally with bilateral rhonchi and crepitus. Abdomen: Soft. Multiple wounds covered with a dressing. She does have some bowel sounds but hypoactive. Extremities: Trace edema. No clubbing. No cyanosis. Neurological: The patient has been intubated. LABORATORY: WBC 7.9, hemoglobin 8.4, hematocrit 28.8, and platelets 269,000. Sodium 140, potassium 3.4, chloride 98, bicarbonate 25, BUN 35, creatinine 4.7, glucose 113, calcium 8.7, phosphorus 2.3, and albumin 2.8. ASSESSMENT AND PLAN: 1. Septic shock. She is not on pressors. We have a positive blood culture that showed Enterococcal infection]. Infectious Disease Department on board, and following this patient closely. We will continue to monitor this patient in the ICU. Pressors as needed. There is also bilateral lower lobe pneumonia and possible peritonitis. 2. Paroxysmal atrial fibrillation secondary to metabolic distress with RVR. Continue with diltiazem drip as needed, has been on hold for now. She is in sinus rhythm. Cardiology on board. 3. Bilateral lower lobe pneumonia. Continue with antibiotics per Infectious Disease Department. 4. 1/2 blood culture that showed VRE susceptible to Zosyn. We will continue to follow recommendations of Infectious Disease Department. 5. Likely peritonitis. Aware. No bowel perforation was found though. 6. Status post laparoscopic cholecystectomy with intraoperative cholangiogram, exploratory laparotomy with lysis of adhesions, mobilization of the colon, resection of a large pelvic mass and open appendectomy postoperative day #7. 7. Initially, this patient was admitted due to free air and severe abdominal pain. We thought in the beginning she had a perforation. Surgery on board. Decreased bowel sounds but present. They are hypoactive. 8. End-stage renal disease. Continue with dialysis as scheduled. 9. Pulmonary edema. We will monitor. We will try to remove fluid with dialysis. 10. Morbid obesity. Aware. 11. Encephalopathy. This patient has been lethargic and somnolent on and off. At this moment, she is on mechanical intubation. 12. Hypoxemic and hypercarbic respiratory failure, multifactorial with respiratory acidosis. We will continue with mechanical ventilation. Pulmonary Department has been consulted. ABGs are better today in the morning. 13. Overall, her prognosis seems to be guarded due to her comorbidities and current condition. She has been recently intubated during the night. Her ABGs are better today. No bowel movement so far. We will continue with same management. She is full code. CRITICAL CARE TIME: 40 minutes. cc: Casper Veliz MD MTDD
[2018-12-22] MEDS: PERIDEX MT SCH ×2 (08:09→21:02)
[2018-12-22] MEDS: HEPARIN SUBQ SCH ×2 (08:09→21:01)
--- NOTE | 2018-12-22 08:39 | Diag Imaging Result Doc PS360 ---
CHEST-1 VIEW - 12/22/2018 INDICATION: ETT PLACEMENT COMPARISON: 12/21/2018 FINDINGS: There is an endotracheal tube in good position with the tip at T4. There is a right internal jugular central line in good position with the catheter tip in the mid SVC. Stable feeding tube off the bottom of the film. There is worsening ill-defined central and bibasilar infiltrate that suggests pulmonary edema. There is cardiomegaly and pulmonary vascular congestion. IMPRESSION: See findings. Electronically signed by Chance Sommers 12/22/2018 8:37 AM
[2018-12-22] MEDS ORDERED: OFIRMEV 1000 MG/ISOTONIC SOLN 1,000 MG/100 ML BOTTLE IV STA (08:41)
[2018-12-22] MEDS: KLONOPIN PO SCH ×2 (09:04→21:02)
[2018-12-22] MEDS: D50W 250 ML, AMINOSYN 15% 500 ML, LIPOSYN 20% 250 ML MISC SCH ×3 (09:08)
--- NOTE | 2018-12-22 10:19 | PROGRESS NOTE ---
DATE: 12/22/2018 Ms. Alexandria Carmen had to be intubated overnight because of CO2 retention. Her tube feeding was also stopped because the nurses felt they may be suctioning it out of her mouth. We know that her feeding tube is in good place in her stomach so I have asked that they restart her tube feeding. She is getting some peripheral nutrition. I placed a central line yesterday. She is also getting dialyzed. Her midline wound is without infection. Her abdomen may be slightly distended but not tightly so. Her white blood cell count had improved to normal yesterday. She continues to be on IV antibiotics. cc: Katharine Dennis MD
[2018-12-22 11:57] LABS: ALLEN TEST NO; BE -0.8 mmoll (-3.0-3.0); BLOOD TYPE ARTERIAL; HCO3-(ACT) 24.3 mmoll (20.0-26.0); O2(CT) 11.7 mL/dL (15.0-23.0); O2HB 96.9 % (95.0-99.0); PO2(98.6) 131 mmHg (60-100); SAMPLE BLOOD; SAO2 99.1 % (95.0-100.0); SRATE 14 BPM; THB 8.4 g/dL (11.5-17.4); TVOL 500 mL; pH(98.6) 7.28 (7.35-7.45)
[2018-12-22 11:59] LABS: MODALITY VENTILATOR
[2018-12-22 12:01] LABS: PCO2(98.6) 56 mmHg (35-45)
--- NOTE | 2018-12-22 13:01 | NEPHROLOGY PROGRESS NOTE ---
DATE: 12/22/2018 SUBJECTIVE: Ms. Carmen is currently ventilator dependent with sedation. She remains in ICU on isolation. OBJECTIVE: Her most recent vital signs, temperature 99.4 degrees, blood pressure 130/63, heart rate is 53 and irregular, respirations are 25 per ventilator. Above ventilator, she remains on 100% FiO2. Last recorded saturation is 100%. She has had 1085 in, and 0 recorded out. She remains 4 L positive. LABORATORY: Sodium 140, potassium 3.4, chloride 98, CO2 25, BUN 35, creatinine 4.7, and glucose 113. Her anion gap is 17. Calcium is 8.7, phosphorus 2.3, albumin 2.8. White count 7.97, hemoglobin 8.4, hematocrit 28.8, with a platelet count of 269,000. ABGs pH 7.48, CO2 40, PO2 315, bicarb 29.5 with a lactate of 1 on 100% FiO2. PHYSICAL EXAMINATION: General: This is a 58-year-old white female who remains ventilator dependent with sedation. She is resting quietly. She appears in no acute distress though she appears critically ill. The patient is pale, clammy, and diaphoretic. Skin: Warm and dry. HEENT: Appears normocephalic and atraumatic. Conjunctiva not inspected. Mucous membranes are dry. Oral ET tube remains in place. Neck: Unable to determine JVD due to oral ET tube straps and body habitus. Cardiovascular: She has faint heart sounds present. She appears irregular sinus bradycardic with a heart rate in the 50 range. Upon exam, positive systolic murmur possibly auscultated. No gallop. Lungs: Diminished with respiratory ventilatory support. She does have some bronchovesicular upon presentation to the upper chest airway. NG tube at this time is currently clamped secondary to elevated residuals. Abdomen: Quiet. Dressing is midline, dry and intact. It is distended. Genitourinary: Not inspected. Patient has minimal void. Dialysis has been requested for assist. Extremities: Patient has upper extremity edema greater than lower extremity. Otherwise, she does have diminished pulses bilateral. They are currently using Doppler's to auscultate both radial and pedal per Doppler's. Neurological: As mentioned above. ASSESSMENT AND PLAN: 1. Chronic kidney disease stage 5D. The patient has not tolerated her last 2 dialysis treatment secondary to either hypotensive with atrial fibrillation with RVR, or yesterday the patient was hypotensive with atrial fibrillation heart rate in the 30s to 50s. At both of these episodes, she was taken off dialysis unable to remove any fluid volume. She now has 4 L fluid positive fluid volume. She is now intubated. We will attempt sled today. We will dialyze for 8 hours, and place her on a 30 bicarb 4 K bath. We will attempt to pull 1 to 2 L as tolerated based upon her blood pressure. She does have Daljit-Synephrine as backup for support. We will plan to give 50 g of albumin at the beginning of the treatment to see if we can support her pressure status. We will plan for dialysis again in the am. 2. Electrolytes and acid-base balance with correction on dialysis. 3. Anemia. Hemoglobin remains stable at 8.4. 4. Septic shock. The patient is currently not on any pressor support, but she has been on an off over the last 48 to 72 hours. She does have positive blood cultures with enterococcal faecalis followed by infectious disease. She is currently on renal dosed antibiotics. 5. Bilateral lobe pneumonia. Patient is now intubated. She has indicated that 1of 2 blood culture bottle shows that she is now VRE susceptible to Zosyn. Infectious Disease continues to monitor and follow, and we appreciate their assistance. 6. I would like to thank you for allowing us to follow with this patient. Dictated by PATTI Blum for Maria Del Rosario Sotelo MD cc: PATTI Blum [facility]
--- NOTE | 2018-12-22 13:50 | INFECTIOUS DISEASE PROGRESS NO ---
DATE: 12/22/2018 PRESENT ILLNESS: The patient has peritonitis secondary to bowel perforation. The perforation was not was not able to be found. She also has bilateral pneumonia. MEDICATIONS: The patient is receiving Zosyn in a reduced dose because of the patient's end-stage renal disease. PHYSICAL EXAMINATION: Vital Signs: Temperature is 100.4 degrees, pulse 77, respirations 25, blood pressure 108/41. The patient is intubated and sedated at this time. Head/eyes/ears/nose/throat: The patient has an orotracheal tube in place. No drainage noted from the nose or ears. Neck: No stiffness. Lungs: Clear to auscultation. Cardiovascular: Heart rate is regular. Abdomen: Soft. It was not tender to soft palpation. The patient's incision has a large dressing over it. The dressing is intact and dry. Extremities: The patient has a left arm AV fistula through which she is being dialyzed now. Neurologic: Patient is sedated. RADIOLOGY AND LAB: Chest x-ray shows pulmonary venous congestion. The patient's repeat blood cultures are sterile. The patient's peritonitis is still having some purulent drainage. Vital Signs: Temperature 100.4 degrees, pulse 77, respirations 25, blood pressure is 108/41. General: The patient is intubated and sedated. Head, eyes, ears, nose, and throat: No drainage noted from the nose or ears. Neck: No stiffness. Lungs: Clear to auscultation. Cardiovascular: Regular heart rate. Abdomen: Soft. The patient's midline incision has a large dressing over it. Neurologic: The patient is sedated. There is no tremor. LAB AND X-RAY: Chest x-ray shows pulmonary venous congestion. CBC shows a white count of 7970, hemoglobin 8.4, and platelet count 269,000. Patient's blood gases show a pH of 7.28, a PO2 of 131, and a pCO2 of 56. Creatinine is 4.7. GFR is 9. The patient's repeat blood cultures have been sterile starting 2 days ago. The pathology report on the patient's pelvic mass shows that there was an enlarged ovary and fallopian tube. ASSESSMENT AND PLAN: Patient has pneumonia and peritonitis secondary to bowel perforation. The plan is to continue Enterococcus. COMORBIDITIES: The patient has end-stage renal disease. She is on dialysis. She also has congestive heart failure. cc: Reji Henley MD
[2018-12-22 17:09] LABS: HEMATOCRIT 28.3 % (37.0-47.0); HEMOGLOBIN 8.4 g/dL (12.0-16.0)
[2018-12-22] MEDS: NEO-SYNEPHRINE 50 MG in NS 250 ML IV SCH (18:20)
--- NOTE | 2018-12-22 21:37 | PULMONOLOGY CONSULTATION ---
DATE: 12/22/2018 REQUESTING PHYSICIAN: Dr. Polanco. REASON FOR CONSULTATION: Respiratory failure. HISTORY OF PRESENT ILLNESS: Ms. Carmen is a 58-year-old white female with morbid obesity and end- stage renal disease on hemodialysis who presented to the hospital with acute abdominal pain. CT scan of the abdomen revealed a mass in the abdomen along with free intraperitoneal air. The patient was initiated on antibiotics with initial observation, but was taken to the operating room with decline. The patient underwent a laparoscopic cholecystectomy along with resection of a large pelvic mass. Etiology for the free air in the abdomen was not identified. 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 The patient also underwent an appendectomy which revealed inflammation with focal necrosis. Her hospital course has been complicated by vancomycin- resistant Enterococcus. She developed progressive respiratory failure through the evening, requiring intubation and mechanical ventilation. She has required periodic vasopressors. PAST MEDICAL HISTORY/PROBLEM LIST: 1. End-stage renal disease on hemodialysis. 2. Hypertension. 3. Atrial fibrillation with rapid ventricular response during this hospitalization. 4. Osteoarthritis. SOCIAL HISTORY: The patient stopped smoking approximately 5 years ago. She has limited exercise due to her obesity and arthritis. REVIEW OF SYSTEMS: Cannot be obtained. PHYSICAL EXAMINATION: General: Reveals an obese white female on mechanical ventilation. She is currently on hemodialysis. Vital Signs: Maximum temperature in the last 24 hours is 99.4 degrees. HEENT: Pupils are equal and reactive. Oropharynx appears clear. Neck: Supple. Chest: Reveals coarse rhonchi throughout all lung enriquez. Cardiac: Distant heart sounds. Normal S1, normal S2. Abdomen: Obese and soft. Extremities: Reveal +1 peripheral edema. LABORATORIES: Chest x-ray reveals cardiomegaly, interstitial pulmonary edema with bibasilar infiltrates. White blood count 7.97, hemoglobin 8.3, platelet count 269,000. Arterial blood gas at 4:48 this morning: pH of 7.48, pCO2 of 40, PO2 of 315. This was adjusted by this practitioner. Repeat arterial blood gas was pH of 7.28, pCO2 of 56, PO2 of 131. Her rate was increased and her tidal volume was increased after this arterial blood gas. IMPRESSION: A 58-year-old with: 1. Pneumonia. 2. Acute hypoxemic respiratory failure. 3. Peritonitis. 4. End-stage renal disease on hemodialysis. 5. Morbid obesity. PLAN: 1. Continue full ventilatory support. 2. Collect sputum for C and S. 3. Continue antibiotics per Infectious Disease. 4. Continue DVT prophylaxis. 5. Continue gastric acid suppression. 6. Began weaning with radiographic and clinical improvement. CRITICAL CARE MANAGEMENT TIME SPENT: One hour. cc: Vinny Rodriguez MD
[2018-12-23 00:30] LABS: HEMATOCRIT 29.2 % (37.0-47.0); HEMOGLOBIN 8.6 g/dL (12.0-16.0)
[2018-12-23] MEDS: DIPRIVAN 1% 1,000 MG/100 ML BOTTLE IV SCH ×9 (00:36→21:39)
[2018-12-23] MEDS: NEO-SYNEPHRINE 50 MG in NS 250 ML IV SCH (02:01)
[2018-12-23] MEDS: ZOSYN 2.25 GM in NS 50 ML IV SCH ×4 (02:50→21:06)
[2018-12-23 05:09] LABS: ALLEN TEST YES; BE -3.7 mmoll (-3.0-3.0); BLOOD TYPE ARTERIAL; METHB 1.2 % (0.0-1.5); O2(CT) 12.6 mL/dL (15.0-23.0); O2HB 96.4 % (95.0-99.0); PCO2(98.6) 49 mmHg (35-45); PO2(98.6) 143 mmHg (60-100); SAMPLE BLOOD; SAO2 98.7 % (95.0-100.0); SRATE 15 BPM; THB 9.1 g/dL (11.5-17.4); TVOL 600 mL; pH(98.6) 7.28 (7.35-7.45)
[2018-12-23 05:16] LABS: MODALITY VENTILATOR
[2018-12-23 05:20] LABS: BASO# 0.28 X1000 (0.0-0.2); BASO% 1.5 % (0.0-0.8); EOS# 1.15 X1000 (0.0-0.7); EOS% 6.1 % (0.0-10.0); HEMATOCRIT 30.3 % (37.0-47.0); IMM GRAN% 10.1 % (0.0-0.5); LYMPH# 2.33 X1000 (1.2-3.4); LYMPH% 12.4 % (20.5-51.1); MCHC 29.7 g/dL (33-37); MONO# 1.56 X1000 (0.11-0.59); MONO% 8.3 % (1.7-9.3); MPV 10.2 FL (7.4-10.4); NEUT# 11.61 X1000 (1.4-6.5); NEUT% 61.6 % (42.2-75.2); PLT 378 X1000 (130-400); RBC 2.73 XMIL (4.2-5.4); RDW 12.9 % (11.5-14.5); WBC 18.83 X1000 (4.8-10.8)
[2018-12-23 05:39] LABS: CALCIUM 9.1 mg/dL (8.8-10.2); CREATININE 3.1 mg/dL (0.5-0.9); MAGNESIUM 1.6 mg/dL (1.5-2.7); POTASSIUM 3.6 mmol/L (3.5-5.1)
[2018-12-23] MEDS: PROTONIX IV SCH (05:57)
--- NOTE | 2018-12-23 06:58 | Diag Imaging Result Doc PS360 ---
EXAM: CHEST-PORTABLE HISTORY: dyspnea TECHNIQUE: Portable chest COMPARISON: 12/22/2018 FINDINGS: No change in the right jugular line, the endotracheal tube, or in the nasogastric tube. The heart remains enlarged. Mild decreased pulmonary edema. Decreased left pleural effusion. IMPRESSION: Mild interval improvement. Electronically signed by Mike Banerjee 12/23/2018 6:56 AM
[2018-12-23 07:28] LABS: BASO 1 % (0-1); EOS 6 % (1-10); LYMPHS 12 % (21-51); MONO 9 % (1-9); SEGS 72 % (42-75)
[2018-12-23] MEDS ORDERED: NS 2,000 ML MISC PRN (07:42)
[2018-12-23] MEDS: D50W 250 ML, AMINOSYN 15% 500 ML, LIPOSYN 20% 250 ML MISC SCH ×3 (10:00)
--- NOTE | 2018-12-23 10:29 | INFECTIOUS DISEASE PROGRESS NO ---
DATE: 12/23/2018 PRESENT ILLNESS: Ms. Carmen is status post cholecystectomy, appendectomy, lysis of adhesions, and resection of a large left pelvic mass. There is a peritonitis due to previous perforation before the surgery. Her abdominal pathogens are E-coli, group B strep and Staphylococcus epidermidis. She also has a vancomycin resistant enterococcus bacteremia. Today she has a new leukocytosis and there has been a low grade fever. MEDICATIONS: She is receiving Zosyn 2.25 g IV every 6 hours. Based on her sterile blood cultures, today is day 3 of treatment for her bacteremia. PHYSICAL EXAMINATION: Vital Signs: Temperature is 97.4 degrees. Pulse is 69. Respiratory rate 15, blood pressure. 111/63, O2 saturation is 99% on a 40% FiO2 on the mechanical ventilator. General: This is a critically ill appearing middle-aged, morbidly obese female. She is lying in the bed, currently sedated on the mechanical. HEENT: Atraumatic, normocephalic. Oral mucous membranes are pink and moist. Conjunctivae are pale. Cardiovascular: Heart rate and rhythm are regular. Normal sinus rhythm on the monitor. Respiratory: Lung sounds have coarse rhonchi in the upper lobes, diminished with some mild wheezes in the mid and bases. She is breathing above the set rate on the ventilator. Abdomen: Soft, obese with active bowel sounds. She did grimace with abdominal palpation. There is midline abdominal incision with a dressing which has a mild amount of bloody drainage noted. Integumentary: There is a right intrajugular central line. That site is without edema, erythema, or drainage. She has an AV fistula in place to the left upper arm with a good thrill and bruit. LABORATORY AND X-RAY: Today her white count is 18.83, hemoglobin 9, platelet count is 363,000. This morning on a 40% FiO2, her pH was 7.28, pCO2 49, PO2 143. HC03 22. Creatinine is 3.1 GFR 15. Chest x-ray this morning shows mild interval improvement of the pulmonary edema. ASSESSMENT AND PLAN: Ms. Carmen is being treated postoperatively for peritonitis and pneumonia, as well as a vancomycin-resistant enterococcal bacteremia. She is receiving renally dosed Zosyn, which we will continue. Since she has had a spike in her white blood cell count, we will recheck blood cultures and add IV vancomycin 1 g after dialysis for methicillin-resistant Staph aureus coverage. A sputum culture was ordered yesterday and has been obtained today. We will continue vancomycin and Zosyn pending culture results. These plans have been discussed with and recommended by Dr. Henley. COMORBIDITIES: For Ms. Carmen include morbid obesity, end-stage renal disease with hemodialysis, congestive heart failure and anemia. Dictated by PATTI Soto for Reji Henley MD cc: Reji Henley MD [facility]
[2018-12-23] MEDS: HEPARIN SUBQ SCH ×2 (10:42→21:29)
[2018-12-23] MEDS: PERIDEX MT SCH ×2 (10:42→21:29)
[2018-12-23] MEDS: KLONOPIN PO SCH ×2 (10:43→21:54)
--- NOTE | 2018-12-23 13:49 | NEPHROLOGY PROGRESS NOTE ---
DATE: 12/23/2018 SUBJECTIVE: Patient currently resting in bed. She is sedated and mechanically ventilated. OBJECTIVE: Vital Signs: Temperature 99.3 degrees, pulse 68, respiratory rate 16, blood pressure 121/61. Intake 3.3 L; output 1.7 L. General: This is a chronically ill-appearing female resting in bed. She is sedated, mechanically ventilated. HEENT: Normocephalic, atraumatic. She is orally intubated. She has an NG tube to the right naris. Neck: Supple. Positive JVD. Cardiovascular: Regular rate and rhythm. She is on pressor support. Pulmonary: Decreased breath sounds. Remains mechanically ventilated. No rales or wheezes. Abdomen: Hypoactive bowel sounds. : De La Rosa catheter. Minimal urine. Extremities: She has 1+ edema with dependent edema to the backs of the thighs and hips. Skin: Extremely pale, warm, dry. No rashes. Neurologic: Grossly nonfocal. Please note she is currently sedated with Diprivan. LAB DATA: WBC of 18.8, hemoglobin 9. Sodium 139, potassium 3.6, CO2 21, creatinine 3.1 (4.7). ASSESSMENT AND PLAN: 1. Chronic kidney disease 5 D. We are dialyzing her with slow, low efficiency dialysis secondary to her hypotension and previous bradycardic atrial fibrillation. We were able to pull just under 2 liters yesterday. We will plan the same therapy again today. I discussed with the family that we will plan to dialyze her again on Wednesday and then hold on Wednesday and re- evaluate Wednesday. 2. Septic shock. She is back on Daljit-Synephrine. Continue. 3. Bilateral lobe pneumonia on appropriately-dosed antibiotics. 4. Electrolytes, acid-base balance, anemia. These are stable. Plan to continue to manage varying slow, low efficiency dialysis. Dictated by PATTI Whitney for Michael Leavitt MD cc: Michael Leavitt MD
--- NOTE | 2018-12-23 15:14 | PROGRESS NOTE ---
DATE: 12/23/2018 INTERVAL HISTORY: The patient had been off pressors, but yesterday afternoon had worsening hypercapnic respiratory failure requiring intubation. Post intubation, did have drop in blood pressure and was put back on pressors, although blood pressure is significantly improved this morning and she may be able to be weaned off again fairly quickly. Patient with 1 low-grade fever yesterday, which has not been repeated. Respiratory rate of zero appears to have been recorded in error. No other acute events. Discussed current situation with the patient's family. REVIEW OF SYSTEMS: Unable to obtain secondary to patient's mental status. LABS: WBC 18.8, hemoglobin 9, hematocrit 30.3, platelets 378. ABG with pH 7.28, pCO2 49 improved from 73, PO2 143 on 40% FiO2 via vent. Sodium 139, potassium 3.6, bicarbonate 21, BUN 25, creatinine 3.1, glucose 105. IMAGING: Chest x-ray with mild improvement in pulmonary edema. No new infiltrate. VITALS: T-max 100.4 degrees, pulse 77, respirations 17, blood pressure 108/53, O2 saturation 98% on ventilator. PHYSICAL EXAMINATION: General: No acute distress. Vitals: As above. Intubated and sedated. HEENT: Normocephalic, atraumatic. Moist mucous membranes. Neck: No cervical adenopathy. Cardiovascular: Regular rate and rhythm. No murmurs or gallops noted. Pulmonary: Scattered rhonchi, mildly decreased breath sounds throughout, otherwise clear to auscultation. Abdomen: Soft. Surgical wounds dressed. Dressing clean, dry, intact. Bowel sounds decreased, but present. Extremities: Peripheral pulses intact. Trace edema bilaterally in the lower extremities. Neurologic: Exam limited by intubation, but pupils equal, round, reactive to light. Reflexes appear intact. Psychiatric: Sedated as above. Skin: No new rashes or lesions identified. ASSESSMENT AND PLAN: 1. Septic shock. Initial blood cultures positive for Enterococcus faecium resistant only to vancomycin. Repeat blood cultures negative. Further repeat blood cultures obtained after re- intubation. No growth so far. On antibiotics with vancomycin and Zosyn currently. Infectious Disease following. Required pressors initially, was weaned off, and then pressors had to be re-initiated after re-intubation. We will continue to wean pressors as able. 2. Bilateral lower lobe pneumonia. Antibiotics as above and monitor. 3. Paroxysmal atrial fibrillation. Had atrial fibrillation with rapid ventricular response at 1 point, but has been largely in sinus rhythm over the last couple days. Cardiology on board. 4. Vancomycin-resistant Enterococci positive blood cultures. On Zosyn as above. Repeat blood cultures have been negative so far. Likely peritonitis. Patient on initial evaluation had free air in the abdomen concerning for perforation. She underwent surgery during which her gallbladder and appendix were removed, as well as a large pelvic mass. Gallbladder pathology showed evidence of necrosis. Appendix also showed inflammation and focal necrosis. Mass returned with cystadenofibroma with patchy inflammation. Exact origin of the free air is not entirely clear, but may have been related to any of the above. Surgery following. On antibiotics as above and monitoring. 5. End-stage renal disease. Nephrology on board. Continue dialysis. 6. Morbid obesity. Aware. 7. Hypoxic and hypercarbic respiratory failure secondary to above issues. Pulmonary on board. Oxygenation not too bad right now. We will hopefully be able to wean off the vent fairly quickly. 8. Likely chronic obstructive pulmonary disease and pulmonary hypertension. Patient with history of smoking, although she quit quite some time ago. Decreased breath sounds on exam. Not really any wheezing to suggest exacerbation, but likely contributing to above issues. TIME SPENT: 45 minutes critical care time spent immediately available to the patient, examining the patient, reviewing labs and making medical decisions.
[2018-12-23 15:21] LABS: ALLEN TEST NO; BE -2.5 mmoll (-3.0-3.0); BLOOD TYPE ARTERIAL; METHB 0.5 % (0.0-1.5); O2(CT) 12.2 mL/dL (15.0-23.0); O2HB 97.2 % (95.0-99.0); PCO2(98.6) 43 mmHg (35-45); PO2(98.6) 114 mmHg (60-100); SAMPLE BLOOD; SAO2 98.5 % (95.0-100.0); THB 8.8 g/dL (11.5-17.4); pH(98.6) 7.34 (7.35-7.45)
[2018-12-23 15:22] LABS: MODALITY VENTILATOR
--- NOTE | 2018-12-23 16:46 | PROGRESS NOTE ---
DATE: 12/23/2018 SUBJECTIVE: Ms. Alexandria Carmen is status post exploratory laparotomy with open appendectomy, left ovarian cyst resection, and laparoscopic cholecystectomy. She had free intra-abdominal air at the time of her admission and it was felt it could be a ruptured diverticulum, but the area of her colon that was the cause of this was not identified, and therefore no colon resection was performed. We just kept her on IV antibiotics, and actually this week, her white blood cell count has been normal, but it jumped up to 18 over the last [address] Reji Henley, our Infectious Disease physician, has added vancomycin to her IV antibiotics. She has had to be reintubated just because of her weakness. She is getting hemodialysis because of her end-stage renal disease. OBJECTIVE: Her heart rate is 73, blood pressure 99/54, O2 saturation 99%. She is afebrile. She is on multiple IV antibiotics including Zosyn and vancomycin. Her white blood cell count is 18, hematocrit is 30%. BUN and creatinine are 25 and 3.1. Her lactate is essentially normal. Her base deficit is 2.5. She is on minimal vent settings. We are trying to give her tube feedings, they are having to be stopped intermittently because of high residuals. She has a midline wound loosely closed, but no wound infection. PLAN: Continue supportive care and IV antibiotics. Continue to try to meet our nutritional needs with this gastric feeding tube. cc: Katharine Dennis MD
[2018-12-23] MEDS ORDERED: VANCOMYCIN 1 GM/NS 1 GM/250 ML IVPB IV SCH (17:00)
[2018-12-23] MEDS ORDERED: VANCOMYCIN 1 GM/NS 1 GM/250 ML IVPB IV ONE (18:00)
[2018-12-24] MEDS: DIPRIVAN 1% 1,000 MG/100 ML BOTTLE IV SCH ×4 (00:27→07:07)
[2018-12-24] MEDS: ZOSYN 2.25 GM in NS 50 ML IV SCH ×4 (02:40→20:00)
[2018-12-24 04:41] LABS: ALLEN TEST YES; BE -2.9 mmoll (-3.0-3.0); BLOOD TYPE ARTERIAL; HCO3-(ACT) 22.7 mmoll (20.0-26.0); METHB 0.2 % (0.0-1.5); O2(CT) 12.6 mL/dL (15.0-23.0); O2HB 98.2 % (95.0-99.0); PCO2(98.6) 37 mmHg (35-45); PO2(98.6) 139 mmHg (60-100); SAMPLE BLOOD; SRATE 15 BPM; THB 8.9 g/dL (11.5-17.4); TVOL 600 mL; pH(98.6) 7.38 (7.35-7.45)
[2018-12-24 04:42] LABS: MODALITY VENTILATOR
[2018-12-24] MEDS: PROTONIX IV SCH (05:58)
[2018-12-24 06:42] LABS: BASO# 0.15 X1000 (0.0-0.2); BASO% 1.2 % (0.0-0.8); HEMATOCRIT 29.3 % (37.0-47.0); HEMOGLOBIN 8.6 g/dL (12.0-16.0); LYMPH# 1.64 X1000 (1.2-3.4); LYMPH% 12.7 % (20.5-51.1); MCH 32.2 PG (27-31); MCHC 29.4 g/dL (33-37); MCV 109.7 FL (81-99); MONO# 1.17 X1000 (0.11-0.59); MPV 10.7 FL (7.4-10.4); PLT 295 X1000 (130-400); RBC 2.67 XMIL (4.2-5.4); RDW 12.6 % (11.5-14.5); WBC 12.94 X1000 (4.8-10.8)
--- NOTE | 2018-12-24 07:00 | GENERAL SURGERY PROGRESS NOTE ---
DATE: 12/24/2018 SUBJECTIVE: Nursing staff reports the patient did have what sounds like some aspiration of her emesis. She is intubated. They did not suction anything out of her ET tube. She is now off her pressors. OBJECTIVE: Vital Signs: The patient is currently afebrile. Her vital signs are as follows, pulse 83, blood pressure 83/46. General: The patient is currently sedated on the ventilator. Cardiovascular: Regular rate and rhythm. Lungs: Referred airway noises. Abdomen: Soft. Dressing intact. LABORATORY: White blood count is 12, hematocrit 29, platelet count 295,000. ABG reviewed. ASSESSMENT AND PLAN: A 58-year-old female, status post exploratory laparotomy, open appendectomy, cholecystectomy, and left ovarian cyst resection. Postoperative state: At this time she remains critical. We will try to restart her tube feeds with trickle tube feeds. She is having bowel movements, but she may have somewhat of an ileus. We will continue to monitor. She remains intubated, so we will continue pulmonary toiletry. cc: Long Rose MD
[2018-12-24 07:14] LABS: CALCIUM 7.7 mg/dL (8.8-10.2); CREATININE 2.7 mg/dL (0.5-0.9); POTASSIUM 3.9 mmol/L (3.5-5.1)
[2018-12-24 07:23] LABS: EOS 4 % (1-10); LYMPHS 4 % (21-51); MONO 12 % (1-9)
[2018-12-24 07:24] LABS: BANDS 2 % (0-1); HYPOCHROM 1+; SEGS 72 % (42-75)
[2018-12-24] MEDS ORDERED: NS 2,000 ML MISC PRN (07:24)
--- NOTE | 2018-12-24 07:27 | Diag Imaging Result Doc PS360 ---
EXAM: CHEST-PORTABLE 12/24/2018 HISTORY: dyspnea TECHNIQUE: AP portable at 0514 COMMENT: There is an endotracheal tube with its tip at the thoracic inlet and a feeding tube which passes below the diaphragm. There is a right internal jugular central venous catheter with its tip in the superior vena cava. There is bibasilar atelectasis versus pneumonia. This has not changed significantly since 12/23/2018. There is cardiomegaly. IMPRESSION: Cardiomegaly with bibasilar atelectasis versus pneumonia. The possibility of pulmonary edema cannot be excluded. Electronically signed by Rony Gerardo 12/24/2018 7:25 AM
[2018-12-24] MEDS: PERIDEX MT SCH ×2 (10:00→20:00)
[2018-12-24] MEDS: HEPARIN SUBQ SCH ×2 (10:00→20:01)
[2018-12-24] MEDS: KLONOPIN PO SCH (10:24)
[2018-12-24 10:48] LABS: ALLEN TEST NO; BE -4.8 mmoll (-3.0-3.0); BLOOD TYPE ARTERIAL; HCO3-(ACT) 21.2 mmoll (20.0-26.0); METHB 1.1 % (0.0-1.5); O2(CT) 12.5 mL/dL (15.0-23.0); O2HB 96.8 % (95.0-99.0); PCO2(98.6) 38 mmHg (35-45); PO2(98.6) 118 mmHg (60-100); SAMPLE BLOOD; pH(98.6) 7.34 (7.35-7.45)
[2018-12-24 10:49] LABS: MODALITY VENTILATOR
[2018-12-24] MEDS ORDERED: MORPHINE IV PRN (11:08)
--- NOTE | 2018-12-24 13:25 | PROGRESS NOTE ---
DATE: 12/24/2018 INTERVAL HISTORY: The patient remains intubated and sedated, but has been off of pressors since yesterday afternoon with roughly stable blood pressure. Afebrile. No other acute events overnight. REVIEW OF SYSTEMS: Unable to obtain secondary to patient's mental status. LABS: WBC 12.9, hemoglobin 8.6, hematocrit 29.3, platelets 295. ABG with pH 7.34, pCO2 38, PO2 118 on ventilator, bicarbonate 18. BUN 19, creatinine 2.7, calcium 7.7, phosphorus 1.8. Repeat blood cultures no growth to date. VITALS: T-max 99.1 degrees, pulse 93, respirations 24, blood pressure 152/78, O2 saturation 100% on ventilator. PHYSICAL EXAMINATION: General: No acute distress, intubated and sedated. Vitals: As above. HEENT: Normocephalic, atraumatic. Moist mucous membranes. Neck: No cervical adenopathy. Cardiovascular: Regular rate and rhythm. No murmurs noted. Pulmonary: Scattered rhonchi and mildly decreased breath sounds remain. Abdomen: Soft. Surgical wound dressed with dressings clean, dry and intact. Bowel sounds remain decreased. Extremities: Peripheral pulses intact. Trace edema bilaterally, stable. Neurologic: Pupils equal, round, reactive to light. Reflexes continue to appear intact. Psychiatric: Remains sedated. Skin: No new rashes or lesions identified. ASSESSMENT AND PLAN: 1. Septic shock. Initial blood cultures positive for Enterococcus faecium resistant only to vancomycin. Repeat blood cultures times 2 sets remain negative. Last set drawn yesterday. On antibiotics with vancomycin and Zosyn currently. Some increased leukocytosis after re- intubation, but this appears to be trending down. Infectious Disease following. Required pressors initially and after re-intubation, but now off pressors again. Continue to monitor closely. 2. Bilateral lower lobe pneumonia. Antibiotics as above. 3. Paroxysmal atrial fibrillation. Had atrial fibrillation with rapid ventricular response just after admission, but has been largely sinus since then. Cardiology on board. 4. Vancomycin-resistant Enterococcus positive blood cultures. On Zosyn as above, but repeat blood cultures times 2 sets negative so far. Likely to do intra-abdominal infection as below. 5. Perforated viscus. The patient initially with septic shock and free air on abdominal imaging. The patient taken to surgery where she underwent cholecystectomy, appendectomy and pelvic mass removal. Both appendix and gallbladder with evidence of necrosis on path. Pelvic mass came back benign. Surgery following. On antibiotics as above. 6. End-stage renal disease. Nephrology on board. Continue dialysis as directed by them. 7. Morbid obesity. Aware. 8. Hypoxic and hypercarbic respiratory failure secondary to the above issues. Pulmonary on board. Not requiring a whole lot of support from the ventilator, but uncertain if she will be able to breathe on her own without further hypercapnia. We will see how she does with weaning trials and monitor. 9. Chronic obstructive pulmonary disease and pulmonary hypertension. No sign of exacerbation, but likely contributing to the above. 10. Nutrition. The patient has been on tube feeds, but had significantly elevated residuals yesterday. They were held overnight; now back on at a very low rate which we will not try to increase for now. Monitor closely. If we continue to not be able to give her adequate nutrition by mouth, then may have to consider total parenteral nutrition in a couple days. TIME SPENT: 40 minutes critical care time spent immediately available to the patient, examining patient, reviewing labs and imaging, and making medical decisions.
--- NOTE | 2018-12-24 13:47 | NEPHROLOGY PROGRESS NOTE ---
DATE: 12/24/2018 SUBJECTIVE: Patient had event last night of emesis and question of aspiration. Remains sedated and mechanically ventilated. OBJECTIVE: Vital Signs: Temperature 99 degrees, pulse 83, respiratory rate 15, blood pressure 83/46. Intake 3 L, output 1.8 L on SLED. General: Critically ill-appearing female resting in bed. Sedated and mechanically ventilated. HEENT: Normocephalic, atraumatic. Orally intubated. NG tube noted right nares. Neck: Supple. Positive JVD. Cardiovascular: Regular rate and rhythm. She has been on and off pressor support. Pulmonary: Decreased breath sounds. Mechanically ventilated. Abdomen: Hypoactive. : De La Rosa catheter. Small amount of urine. Extremities: Was 1+ dependent edema. Integumentary: Skin is warm and dry. Pale. Neuro: Sedated. LAB DATA: WBC of 12.9, hemoglobin 8.6. Sodium 140, potassium 3.9, CO2 18, BUN 19, creatinine 2.7. Her chest x-ray with atelectasis versus pneumonia and questionable pulmonary edema. This is after her aspiration event. ASSESSMENT AND PLAN: 1. CKD 5D. We plan to dialyze her with SLED again today secondary to her fluid volume status. She is approximately 4 L positive over the last 48 to 72 hours. Unfortunately we were unable to cannulate the patient for dialysis access. This was with multiple attempts. Decision was made to abort dialysis treatment today. She does not have any outstanding labs that would warrant emergent dialysis and even with the events overnight, her oxygen status has remained fairly stable. We will evaluate her in the morning and if her respiratory status worsens we will attempt SLED at that time. Otherwise, will plan to dialyze her again on Wednesday. 2. Septic shock. Again, she has been on and off pressor support. 3. Bilateral lobe pneumonia. No changes to her current antibiotics. 4. Electrolytes, acid-base balance, anemia. These again are all stable with no outstanding labs. 5. Status post exploratory laparotomy, open appendectomy, cholecystectomy and a left ovarian cyst resection. Followed by Surgery. They are going to try to restart her tube feedings. 6. Respiratory failure. Followed by Pulmonology. Again, she will have routine vent weaning trials. Dictated by PATTI Whitney for Michael Leavitt MD cc: Michael Leavitt MD
[2018-12-24] MEDS: MORPHINE IV PRN ×2 (15:22→20:02)
[2018-12-24] MEDS: KLONOPIN PO PRN (20:01)
[2018-12-25] MEDS: ZOSYN 2.25 GM in NS 50 ML IV SCH ×4 (02:19→20:56)
[2018-12-25] MEDS: MORPHINE IV PRN ×2 (02:19→17:58)
[2018-12-25 04:34] LABS: ALLEN TEST YES; BE -6.1 mmoll (-3.0-3.0); BLOOD TYPE ARTERIAL; HCO3-(ACT) 20.2 mmoll (20.0-26.0); O2(CT) 9.3 mL/dL (15.0-23.0); O2HB 98.2 % (95.0-99.0); PCO2(98.6) 47 mmHg (35-45); PO2(98.6) 146 mmHg (60-100); SAMPLE BLOOD; SAO2 99.2 % (95.0-100.0); THB 6.5 g/dL (11.5-17.4); pH(98.6) 7.25 (7.35-7.45)
[2018-12-25 04:35] LABS: MODALITY COOL AEROSOL
[2018-12-25] MEDS: SODIUM CHLORIDE 0.9% INJ SCH (05:57)
[2018-12-25] MEDS: PROTONIX IV SCH (05:57)
[2018-12-25 06:38] LABS: BASO# 0.19 X1000 (0.0-0.2); BASO% 1.6 % (0.0-0.8); HEMOGLOBIN 7.6 g/dL (12.0-16.0); LYMPH# 1.53 X1000 (1.2-3.4); LYMPH% 13.2 % (20.5-51.1); MCH 32.6 PG (27-31); MCHC 29.2 g/dL (33-37); MCV 111.6 FL (81-99); MONO# 1.14 X1000 (0.11-0.59); MONO% 9.9 % (1.7-9.3); MPV 10.9 FL (7.4-10.4); PLT 234 X1000 (130-400); RBC 2.33 XMIL (4.2-5.4); RDW 12.9 % (11.5-14.5); WBC 11.56 X1000 (4.8-10.8)
--- NOTE | 2018-12-25 06:45 | Diag Imaging Result Doc PS360 ---
EXAM: CHEST-PORTABLE HISTORY: dyspnea TECHNIQUE: Chest single view COMPARISON: 12/24/2018 FINDINGS: No change in the right jugular line or nasogastric tube. Similar inspiration. Cardiomegaly and pulmonary edema remain. Questionable small effusions and basilar infiltrates. IMPRESSION: Mild worsening pulmonary edema. Electronically signed by Mike Banerjee 12/25/2018 6:42 AM
[2018-12-25 06:56] LABS: CALCIUM 8.3 mg/dL (8.8-10.2); CREATININE 4.4 mg/dL (0.5-0.9); POTASSIUM 4.1 mmol/L (3.5-5.1)
--- NOTE | 2018-12-25 07:12 | GENERAL SURGERY PROGRESS NOTE ---
DATE: 12/25/2018 SUBJECTIVE: The patient was extubated yesterday. She seems to be doing okay. Her tube feeds are on hold secondary to that. OBJECTIVE: Vital Signs: The patient is currently afebrile. Her vital signs are stable. General Examination: Somewhat drowsy female. Looks stated age. Cardiovascular: Regular rate and rhythm. Lungs: Grossly clear. Abdomen: Soft. Dressing intact. NG tube in place. Laboratory: White blood cell count is 11 which is down, hematocrit is 26, platelet count 234,000. ABG reviewed. Of note, she is a little acidotic. She does have a base deficit. Her lactic acid is normal. Her CO2 is slightly elevated. ASSESSMENT AND PLAN: A 66-year-old female status post exploratory laparotomy, open appendectomy, cholecystectomy, and left ovarian cyst resection. Postoperative state. At this time, patient still remains critical but she is extubated. We would like to hold off on restarting tube feeds until we know her respiratory status has stabilized. We will continue current treatment and monitoring. cc: Long Rose MD
[2018-12-25 08:36] LABS: BANDS 6 % (0-1); EOS 6 % (1-10); HYPOCHROM 1+; LYMPHS 6 % (21-51); MONO 6 % (1-9); SEGS 68 % (42-75)
[2018-12-25] MEDS: PERIDEX MT SCH ×2 (09:58→20:56)
[2018-12-25] MEDS: HEPARIN SUBQ SCH ×2 (09:59→20:56)
--- NOTE | 2018-12-25 12:00 | PROGRESS NOTE ---
DATE: 12/25/2018 INTERVAL HISTORY: The patient successfully extubated yesterday afternoon. Oxygenation has remained okay since then but likely going to have to put her back on BiPAP as her CO2 is climbing on her most recent ABG. Remains afebrile. No other acute events overnight. REVIEW OF SYSTEMS: Twelve point review of systems negative except as per interval history. LABS: WBC 11.5, hemoglobin 7.6, hematocrit 26.0, platelets 234,000. ABG with pH 7.25, pCO2 of 47, PO2 of 146 on 40% FiO2. Sodium 141, potassium 4.1, bicarb 18, BUN 27, creatinine 4.4, phosphorus 3.8. IMAGING: Chest x-ray with mild ongoing pulmonary edema, possibly slightly worse. VITALS: T-max 99.0 degrees, pulse 74, respirations 13, blood pressure 101/51, O2 saturation 99% on 40% FiO2. PHYSICAL EXAMINATION: No acute distress. Vitals as above. HEENT: Normocephalic, atraumatic. Moist mucous membranes. No cervical adenopathy. Cardiovascular: Regular rate and rhythm. No murmurs noted. Pulmonary: Still with scattered rhonchi. Mildly decreased breath sounds throughout. Abdomen: Soft. Surgical wounds remain dressed with dressing clean, dry, intact. Bowel sounds remain decreased but present. Extremities: Peripheral pulses intact. Trace edema bilaterally, essentially stable, possibly slightly worse. Neurologic: Cranial nerves grossly intact. Globally weak but no focal deficits. Psychiatric: Asleep but arousable with slight difficulty. Requires repeated questions or commands but does eventually answer questions appropriately and followed commands. Skin: No new rashes or lesions identified. ASSESSMENT AND PLAN: 1. Septic shock. Initial blood culture positive for Enterococcus faecium, resistant only to vancomycin. Repeat blood cultures times 2 sets remain negative. Still on antibiotics with vancomycin and Zosyn. Leukocytosis is improving. Infectious disease following. Required pressors initially and after re-intubation but has been off pressors the last couple of days. 2. Bilateral lower lobe pneumonia, on antibiotics as above. Improving but slowly. 3. Vancomycin-resistant enterococcus positive blood cultures, on Zosyn as above. Repeat blood cultures negative x2. Likely intra-abdominal source as below. 4. Perforated viscus. Patient presented with septic shock, free air on abdominal imaging. Patient taken to surgery where she underwent cholecystectomy, appendectomy, and pelvic mass removal. Appendix and gallbladder both had evidence of necrosis. Pelvic mass benign. Surgery following. On antibiotics as above. 5. Paroxysmal atrial fibrillation, atrial fibrillation with rapid ventricular response shortly after admission but largely normal sinus since then. 6. End-stage renal disease. Nephrology on board. Continue dialysis as directed by them. 7. Chronic obstructive pulmonary disease, pulmonary hypertension, and acute hypoxic and hypercarbic respiratory failure. Still no wheezing with fair air entry. No sign of chronic obstructive pulmonary disease exacerbation but likely contributing to her hypercapnia. Extubated yesterday but CO2 trending up. We will place on BiPAP and monitor closely. 8. Morbid obesity. Aware. 9. Anemia. No clear sign or source of bleeding. Has had pretty significant downtrend over the last few days so it may be due to critical illness and end-stage kidney disease, but we will monitor closely. Check iron studies and if she has a bowel movement, we will check fecal occult blood. Given critical illness, we will go ahead and give her 1 unit of blood. 10. Nutrition. The patient had elevated residual on tube feeds. Was started on trickle feeds subsequently. Tube feeds being held currently given worsening of ABG in the possibility of having to reintubate her if that continues to worsen.
--- NOTE | 2018-12-25 15:44 | NEPHROLOGY PROGRESS NOTE ---
DATE: 12/25/2018 SUBJECTIVE: Patient was able to be successfully extubated yesterday. She is on BiPAP intermittently this morning secondary to high CO2 level. Patient is awake and makes eye contact. OBJECTIVE: Vital Signs: Temperature 98.3 degrees, pulse 74, respiratory rate 13 General: This is an acutely ill-appearing elderly female, resting in bed. She is awake. She has a BiPAP in place. HEENT: Normocephalic, atraumatic. RIAT. Her oral mucosa is dry. Neck: Supple with positive JVD. Cardiovascular: Regular rate and rhythm. She is off pressor support. Pulmonary: Again is on BiPAP. Successfully extubated yesterday. No wheezes or rales. Does have decreased breath sounds. Abdomen: Obese. Hypoactive bowel sounds. : De La Rosa catheter. Scant urine. Extremities: 1+ edema. Integumentary: Skin is warm and dry, pale. No rash or lesion. Neuro: She is awake and makes eye contact. Tries to follow commands. LAB DATA: WBC of 11.5, hemoglobin 7.6. Sodium 141, potassium 4.1, CO2 18, creatinine 4.4. ASSESSMENT AND PLAN: 1. Chronic kidney disease 5D. We were unsuccessful to cannulate yesterday in order to provide SLED. The patient has actually done quite well overnight. She was successfully extubated yesterday afternoon and has remained on BiPAP. We will evaluate her on Wednesday for continued dialysis treatment but because of her fluid volumes will anticipate that she will run on SLED if we need to dialyze. 2. Septic shock. She is off pressor support. 3. Electrolytes and acid-base balance. 4. Anemia. She did have some modest anemia. She has packed red blood cells ordered. We have requested that because she does not have any other symptoms such as hypoxemia or tachycardia, we will try to hold off transfusing blood today until we can transfuse tomorrow with dialysis so as to appropriately manage her fluid volumes. The patient is less than 24 hours off of ventilator assist and we would hope to assist with her fluid management in an effort to maintain that. 5. Status post exploratory laparotomy, open appendectomy, cholecystectomy, left ovarian cyst resection followed by surgery. I believe her tube feedings are still on hold secondary to her extubation yesterday. Dictated by PATTI Whitney for Michael Leavitt MD cc: Michael Leavitt MD [facility]
[2018-12-25] MEDS ORDERED: HALL'S COUGH LOZENGE MT PRN (23:48)
[2018-12-26] MEDS: MORPHINE IV PRN ×3 (00:07→15:38)
[2018-12-26] MEDS: ZOSYN 2.25 GM in NS 50 ML IV SCH ×4 (01:45→20:43)
[2018-12-26 04:33] LABS: ALLEN TEST YES; BE -8.1 mmoll (-3.0-3.0); BLOOD TYPE ARTERIAL; HCO3-(ACT) 18.6 mmoll (20.0-26.0); METHB 0.9 % (0.0-1.5); MODALITY BI PAP; O2(CT) 9.2 mL/dL (15.0-23.0); O2HB 96.4 % (95.0-99.0); PCO2(98.6) 42 mmHg (35-45); PO2(98.6) 123 mmHg (60-100); SAMPLE BLOOD; SAO2 98.3 % (95.0-100.0); THB 6.6 g/dL (11.5-17.4); pH(98.6) 7.25 (7.35-7.45)
[2018-12-26] MEDS: PROTONIX IV SCH (05:41)
[2018-12-26] MEDS: SODIUM CHLORIDE 0.9% INJ SCH (05:41)
[2018-12-26] MEDS ORDERED: TIGHT: 0.2 ML/HR FOR DIALYSIS MISC PRN (06:21)
[2018-12-26] MEDS ORDERED: HEPARIN IV PRN (06:21)
[2018-12-26] MEDS ORDERED: NS 2,000 ML MISC PRN ×2 (06:21→15:41)
--- NOTE | 2018-12-26 06:33 | Diag Imaging Result Doc PS360 ---
EXAM: CHEST-PORTABLE HISTORY: dyspnea TECHNIQUE: Chest single view COMPARISON: 12/25/2018 FINDINGS: The lungs are well expanded. Pulmonary edema remains. The heart is mildly enlarged. There is a small right pleural effusion. No change in the right jugular line or nasogastric tube. IMPRESSION: No interval improvement Electronically signed by Mike Banerjee 12/26/2018 6:31 AM
[2018-12-26 07:10] LABS: BASO# 0.17 X1000 (0.0-0.2); BASO% 1.7 % (0.0-0.8); EOS# 0.46 X1000 (0.0-0.7); EOS% 4.5 % (0.0-10.0); HEMATOCRIT 24.8 % (37.0-47.0); HEMOGLOBIN 7.2 g/dL (12.0-16.0); IMM GRAN# 0.48 X1000 (0.0-0.04); IMM GRAN% 4.7 % (0.0-0.5); LYMPH# 1.29 X1000 (1.2-3.4); LYMPH% 12.8 % (20.5-51.1); MCH 32.3 PG (27-31); MCV 111.2 FL (81-99); MONO# 0.98 X1000 (0.11-0.59); MONO% 9.7 % (1.7-9.3); MPV 10.7 FL (7.4-10.4); NEUT# 6.73 X1000 (1.4-6.5); NEUT% 66.6 % (42.2-75.2); PLT 267 X1000 (130-400); RBC 2.23 XMIL (4.2-5.4); RDW 13.1 % (11.5-14.5); WBC 10.11 X1000 (4.8-10.8)
[2018-12-26 07:18] LABS: IRON SATURATION 58 %; TIBC 125 ug/dL; TOTAL IRON 72 ug/dL (49-151); UNBOUND IRON 53 ug/dL (112-346)
[2018-12-26 07:19] LABS: CALCIUM 8.2 mg/dL (8.8-10.2); POTASSIUM 4.5 mmol/L (3.5-5.1)
[2018-12-26 07:20] LABS: CREATININE 5.9 mg/dL (0.5-0.9)
[2018-12-26 07:21] LABS: RETIC% 2.61 % (0.8-2.1); RETIC-HE 34.9 PG (28.2-36.6)
[2018-12-26 07:38] LABS: BANDS 2 % (0-1); EOS 2 % (1-10); LYMPHS 20 % (21-51); MONO 10 % (1-9); SEGS 66 % (42-75)
[2018-12-26 07:39] LABS: HYPOCHROM 1+
[2018-12-26] MEDS: HEPARIN SUBQ SCH ×2 (08:07→20:44)
[2018-12-26] MEDS: PERIDEX MT SCH ×2 (08:08→20:44)
--- NOTE | 2018-12-26 09:08 | PROGRESS NOTE ---
DATE: 12/26/2018 SUBJECTIVE: Ms. Carmen has been extubated. She is now postop day 11 from exploratory laparotomy with removal of a left ovarian cyst, open appendectomy, lysis of adhesions, and laparoscopic cholecystectomy. She has been on IV antibiotics because of what might have been diverticulitis with a perforation. She has had no colon resection. She has had to be intubated in her postoperative course, and now she is extubated again. She is receiving hemodialysis. Her midline incision is okay. She has had a bowel movement over the weekend. Her tube feedings have been interrupted off and on because of her re-intubation and also residuals. She has a feeding tube in place. Will again try to start her on Nepro 30 mL an hour and also begin clear liquids. Her heart rate is 78, blood pressure 123/61, O2 saturation 97%. She seems to be comfortable this morning. She is afebrile on IV Zosyn and vancomycin. Her white blood cell count is normal. Hematocrit is 25%. Electrolytes are within normal limits, except BUN is 37, creatinine is 5.9. ABG was reviewed. PLAN: Will try to start her tube feedings back. Will also begin clear liquids. cc: Katharine Dennis MD
--- NOTE | 2018-12-26 09:52 | NEPHROLOGY PROGRESS NOTE ---
DATE: 12/26/2018 TIME SEEN: 0650. SUBJECTIVE: Ms. Carmen is resting quietly in bed. She is awake and alert today. She is talking. She remains on O2 at 3 L nasal cannula. LABORATORY DATA: Sodium 142, potassium 4.5, chloride 104, CO2 of 17, BUN 37, creatinine 5.9, glucose 55. Her anion gap is 21. Her calcium is 8.2. Her phosphorus is 5.7. We have ordered an albumin, still pending. White count 10.11, hemoglobin 7.2, hematocrit 24.8, with a platelet count of 267. Blood cultures are negative. Sputum cultures are negative. Last ABG shows pH 7.25, CO2 of 42, PO2 of 123, bicarb 18.6, with a lactate of 0.8. This was on BiPAP 30% during the night. OBJECTIVE: Most Recent Vital Signs: Temperature 98.8 degrees, blood pressure 136/62, heart rate 78, respirations 17. She is on 3 L nasal cannula. Last recorded saturation 98%. She has had 200 in. She has had 0 recorded out. General: This is a 58-year-old white female, resting quietly in bed. She appears chronically ill. No acute distress today. Skin: Warm and dry. HEENT: Normocephalic, atraumatic. Conjunctiva is pale. She has RITA. Mucous membranes are dry. Neck: Supple. Trachea midline. Unable to determine JVD due to body habitus. Cardiovascular: She is regular rate and rhythm. No murmur or gallop appreciated. Lungs: Shallow. Clear to auscultation anteriorly. Equal excursion on O2. Abdomen: Hypoactive bowel sounds. Midline abdominal incision. This has a light dressing intact. Genitourinary: Not inspected. Minimal void with dialysis assist. Extremities: Continues with 1+ lower extremity edema. Palpable fistula to the left upper arm. Diminished bruit upon auscultation. Firm to touch. Neurological: Alert and oriented x3. ASSESSMENT AND PLAN: 1. Chronic kidney disease stage 5D. The patient is due for her routine dialysis treatment today. She was unsuccessful in being treated on 12/24/2018 for dialysis secondary to diminished flow to her left upper arm fistula. We will attempt dialysis today. She is to be placed on a 2- potassium bath. She is to dialyze for 3.5 hours. We will attempt to pull 3 to 4 liters of ultrafiltration. If unable to dialyze, we will ask her surgeon to evaluate her left upper arm fistula at that time. 2. Electrolytes and acid-base balance. These are acceptable with correction on dialysis. 3. Anemia. Hemoglobin is down to 7.2 from 7.6. She has a unit of packed red blood cells ordered today on dialysis. 4. Status post respiratory failure. The patient was extubated over the weekend. She continues to do well on 3 liters nasal cannula. 5. Status post exploratory laparotomy. She continues to be followed by Surgery and primary care. I would like to thank you for allowing us to follow with this patient. Dictated by PATTI Blum for Michael Leavitt MD Face to face encounter, data reviewed, discussed with Sarah Olivia on 12/26/18. I agree with the above assessment and plan of care. cc: PATTI Blum MD [facility]
--- NOTE | 2018-12-26 09:54 | INFECTIOUS DISEASE PROGRESS NO ---
DATE: 12/26/2018 PRESENT ILLNESS: The patient is status post cholecystectomy, appendectomy, lysis of adhesions, and resection of a large pelvic mass. The patient has peritonitis with E. coli, group B strep, and Staphylococcus epidermidis. The patient also has a vancomycin resistant bacteremia. The patient has developed an increase in her fever but after the vancomycin was started, the fever has come down and the white blood cell count has also. MEDICATIONS: The patient is on a combination of vancomycin which is day 3 of treatment with it and Zosyn which is day 7 of treatment with it. PHYSICAL EXAMINATION: General: This is an ill-appearing, middle-aged female. She is in no acute distress. Head, Eyes, Ears, Nose, and Throat: She can hear my spoken words and see near objects. She does not have any white coating on her tongue. Neck: The patient has a right-sided internal jugular vein catheter in place. The site is not erythematous or draining. Lungs: Clear to auscultation. Cardiovascular: Regular heart rate. Abdomen: Soft and not tender to light touch. The patient's midline incision appears to be intact. It is not erythematous or draining. Neurologic: The patient is awake. She can move her extremities. There is no tremor. The patient has an AV fistula in her left arm which is functioning well. LAB AND X-RAY: CBC shows a white count of 10,110, hemoglobin 7.2, platelet count 267,000. Creatinine is 5.9. GFR is 7. Blood gases show a pH of 7.25, a PO2 of 123, and a pCO2 of 42. Chest x-ray shows pulmonary edema. Creatinine is 5.9. GFR is 7. Blood cultures grew enterococcus and abdomen grew E. coli, group B strep, and Staphylococcus epidermidis. ASSESSMENT AND PLAN: The patient has peritonitis, pneumonia, and vancomycin-resistant enterococcal bacteremia. My plan is to continue Zosyn and vancomycin. COMORBIDITIES: The patient is morbidly obese. She has end-stage renal disease with hemodialysis and she also has congestive heart failure and anemia. cc: Reji Henley MD
--- NOTE | 2018-12-26 13:55 | PROGRESS NOTE ---
DATE: 12/26/2018 INTERVAL HISTORY: The patient's respiratory status is stable to somewhat improved. A little more awake today. Reports being generally stiff and achy most prominently in her abdomen. Afebrile overnight. No other acute events overnight. Some dyspnea with exertion but fairly comfortable at rest at this point. Mild nonproductive cough. REVIEW OF SYSTEMS: Twelve point review of systems negative except as per interval history. LABS: WBC 10.1, hemoglobin 7.2, hematocrit 24.8, platelets 267,000, reticulocyte 2.6. ABG with pH 7.25, pCO2 42, PO2 123 on 30% FiO2. Sodium 142, potassium 4.5, bicarb 17, BUN 37, creatinine 5.9, glucose 65, iron 72, TIBC 125, iron sat 58, ferritin 2150. IMAGING: Chest x-ray with continued mild pulmonary edema. VITALS: T-max 98.8 degrees, pulse 82, respirations 23, blood pressure 148/71, O2 saturation 97% on 2 L by nasal cannula. PHYSICAL EXAMINATION: General: No acute distress. Vitals: As above. HEENT: Normocephalic, atraumatic. Moist mucous membranes. No cervical adenopathy. Cardiovascular: Regular rate and rhythm currently. No murmurs noted. Pulmonary: Mild decreased breath sounds throughout but no wheezing. Still some scattered rhonchi. Abdomen: Soft. Minimal tenderness around surgical sites with without rebound or guarding. Bowel sounds decreased but present. Extremities: Peripheral pulses intact. Trace edema stable. Neurologic: Cranial nerves grossly intact. Significant global weakness but no focal deficits. Psychiatric: Awake, alert, much more conversant and cooperative today. Oriented x3. Skin: No new rashes or lesions identified. ASSESSMENT AND PLAN: 1. Septic shock. Initial blood cultures positive for enterococcus faecium resistant only to vancomycin. Repeat blood cultures times 2 sets negative. Remains on antibiotics with vancomycin and Zosyn. Infectious Disease following and assisting with antibiotics. Leukocytosis resolved. Off pressors for several days. 2. Bilateral lower lobe pneumonia, on antibiotics as above. Improving slowly. Oxygenation actually much improved. 3. Chronic obstructive pulmonary disease, pulmonary hypertension, acute hypoxic and hypercarbic respiratory failure. Has had to be intubated twice because of hypercapnia. Extubated a couple days ago and while she had some CO2 up trending yesterday, appears to be significantly improved today. Will continue BiPAP as needed, but doing pretty well on nasal cannula at the time of my exam. Continue to monitor closely. 4. Perforated viscus. Patient presented with septic shock, free air on abdominal imaging. Taken to surgery where she underwent cholecystectomy, appendectomy, pelvic mass removal. Appendix and gallbladder both had evidence of necrosis. Pelvic mass benign. Surgery following. On antibiotics as above. 5. End-stage renal disease nephrology on board. Continue dialysis as directed by them. Going to dialysis today. 6. Acidosis. The patient has initially had respiratory acidosis from hypercapnia, but that appears to have largely resolved. Still with largely non gap metabolic acidosis. Hopefully, we will correct with dialysis today. 7. Morbid obesity. Aware. 8. Anemia. No signs or symptoms of obvious bleeding but has had slow but steady downtrend. Likely related to critical illness and end-stage renal disease. Given multiple comorbidities and significant illness, we will go ahead and transfuse a unit with dialysis today. 9. Nutrition. The patient was started on tube feeds, but then had high residuals. Subsequent started on trickle feeds which were held briefly because of fears for re-intubation yesterday but starting back today. Given improvement in her mental status, likely starting clear liquid diet today but we will see what Surgery says.
--- NOTE | 2018-12-26 15:32 | Diag Imaging Result Doc PS360 ---
CHEST-PORTABLE - 12/26/2018 3:17 PM INDICATION: vascath placement COMPARISON: 5:23 AM FINDINGS: There is a new right internal jugular dialysis catheter in good position with the distal tip at the lower SVC. Stable feeding tube. Stable cardiomegaly. Decrease in the pulmonary vascular congestion. No infiltrates. No pneumothorax. IMPRESSION: Right sided central venous catheter placement with no complication. Electronically signed by Chance Sommers 12/26/2018 3:30 PM
[2018-12-26] MEDS ORDERED: VANCOMYCIN 1 GM/NS 1 GM/250 ML IVPB IV ONE (17:00)
--- NOTE | 2018-12-26 19:45 | OPERATIVE NOTE ---
PROCEDURE DATE: 12/26/2018 PREOPERATIVE DIAGNOSIS: Clotted left arm atrioventricular. POSTOPERATIVE DIAGNOSIS: 1. Clotted left arm arteriovenous fistula. 2. End-stage renal disease requiring chronic hemodialysis. PRINCIPAL PROCEDURE: Right internal jugular Vas-Cath. SURGEON: Katharine Dennis MD. ANESTHESIA: Local. ESTIMATED BLOOD LOSS: 10 mL. DRAINS: None. INDICATIONS: Ms. Alexandria Carmen is a 58-year-old white female in our ICU after abdominal surgery. She has end-stage renal disease and has been dialyzing through a left arm AV fistula, but this fistula has clotted and she needs access for hemodialysis. She had a right internal jugular central venous line in place, and we felt we would change that central venous line out to a Vas-Cath. DESCRIPTION OF PROCEDURE: The patient was placed supine in her room, ICU-2. Her right neck was prepped and draped in a sterile field. I placed a guidewire through the distal port of her triple- lumen central venous line. I removed the central venous line. I placed sequential dilators over the guidewire, and then I used a Trialysis catheter to place over the guidewire into the right internal jugular vein. It was secured to the skin with two 3-0 nylon stitches. Dressings were applied and we got a portable chest x-ray at the end of the procedure prior to starting dialysis. cc: Katharine Dennis MD
[2018-12-26] MEDS: TYLENOL PO PRN (20:44)
[2018-12-26] MEDS: ZOFRAN IV PRN (20:44)
--- NOTE | 2018-12-26 21:03 | PULMONOLOGY PROGRESS NOTE ---
DATE: 12/26/2018 SUBJECTIVE: The patient is awake, alert, and conversant. She has a slightly wet cough. She has no increased work of breathing. OBJECTIVE: The patient has been afebrile for the last 24 hours. Blood pressure 144/66, heart rate 82, respiratory rate 31, oxygen saturation 97% on 2 L per nasal cannula.HEENT: Pupils are equal and reactive. Oropharynx appears clear. Neck: Supple. Chest: Reveals crackles in both lung bases. Cardiac: S1-S2. Abdomen: Obese and soft. Extremities: Reveal 1+ peripheral edema. LABORATORIES: Chest x-ray reveals decreasing vascular congestion with stable cardiomegaly. White blood count 10.1, hemoglobin 7.2, platelet count 267,000. Sodium 142, potassium 4.5, chloride 104, bicarbonate 17, BUN 37, creatinine 5.9. Arterial blood gas reveals a pH 7.25, pCO2 of 42, pO2 of 123. IMPRESSION: A 58-year-old with 1. Acute hypoxemic respiratory failure. 2. Pneumonia. 3. Peritonitis. 4. End-stage renal disease. 5. Morbid obesity. DISCUSSION: A 58-year-old with problems outlined above. Clinically and radiographically, she continues to improve. PLAN: 1. Continue bronchial hygiene. 2. Continue antibiotics per Infectious Disease. 3. DVT prophylaxis. 4. Recommend reinitiation of physical therapy. cc: Vinny Rodriguez MD
[2018-12-27] MEDS: ZOSYN 2.25 GM in NS 50 ML IV SCH ×4 (03:37→21:43)
[2018-12-27 04:31] LABS: ALLEN TEST YES; BE -3.3 mmoll (-3.0-3.0); BLOOD TYPE ARTERIAL; HCO3-(ACT) 22.3 mmoll (20.0-26.0); O2(CT) 12.6 mL/dL (15.0-23.0); O2HB 94.4 % (95.0-99.0); PCO2(98.6) 50 mmHg (35-45); PO2(98.6) 77 mmHg (60-100); SAMPLE BLOOD; SAO2 96.9 % (95.0-100.0); THB 9.4 g/dL (11.5-17.4); pH(98.6) 7.28 (7.35-7.45)
[2018-12-27 04:33] LABS: MODALITY CANNULA
[2018-12-27] MEDS: MORPHINE IV PRN ×3 (05:10→22:27)
[2018-12-27] MEDS: PROTONIX IV SCH (05:49)
[2018-12-27] MEDS: SODIUM CHLORIDE 0.9% INJ SCH (05:50)
[2018-12-27] MEDS ORDERED: TIGHT: 0.2 ML/HR FOR DIALYSIS MISC PRN (06:27)
[2018-12-27] MEDS ORDERED: NS 2,000 ML MISC PRN (06:27)
[2018-12-27] MEDS ORDERED: HEPARIN IV PRN (06:27)
[2018-12-27 07:18] LABS: CALCIUM 8.2 mg/dL (8.8-10.2); CREATININE 5.1 mg/dL (0.5-0.9); POTASSIUM 3.3 mmol/L (3.5-5.1)
[2018-12-27 07:19] LABS: BASO% 1.1 % (0.0-0.8); EOS# 0.38 X1000 (0.0-0.7); EOS% 4.3 % (0.0-10.0); HEMATOCRIT 28.8 % (37.0-47.0); HEMOGLOBIN 8.6 g/dL (12.0-16.0); IMM GRAN# 0.24 X1000 (0.0-0.04); IMM GRAN% 2.7 % (0.0-0.5); LYMPH# 1.34 X1000 (1.2-3.4); LYMPH% 15.2 % (20.5-51.1); MCH 31.7 PG (27-31); MCHC 29.9 g/dL (33-37); MCV 106.3 FL (81-99); MONO# 0.89 X1000 (0.11-0.59); MONO% 10.1 % (1.7-9.3); MPV 10.9 FL (7.4-10.4); NEUT# 5.87 X1000 (1.4-6.5); NEUT% 66.6 % (42.2-75.2); PLT 239 X1000 (130-400); RBC 2.71 XMIL (4.2-5.4); RDW 15.1 % (11.5-14.5); WBC 8.82 X1000 (4.8-10.8)
--- NOTE | 2018-12-27 07:24 | Diag Imaging Result Doc PS360 ---
EXAM: CHEST-PORTABLE 12/27/2018 HISTORY: dyspnea TECHNIQUE: AP portable at 0524 COMMENT: There is an NG tube with its tip below the diaphragm and a double-lumen right internal jugular central venous catheter with its tip just above the right atrium. There is increased pulmonary vascularity. The heart size is at the upper limits of normal. There is some apparent atelectasis in both lung bases. These findings were also present on 12/26/2018. IMPRESSION: Bibasilar atelectasis, stable. Electronically signed by Rony Gerardo 12/27/2018 7:22 AM
[2018-12-27 07:53] LABS: BANDS 4 % (0-1); EOS 6 % (1-10); LARGE PLATELETS 2+; LYMPHS 6 % (21-51); MONO 8 % (1-9); SEGS 72 % (42-75)
[2018-12-27] MEDS: PERIDEX MT SCH ×2 (08:17→21:43)
[2018-12-27] MEDS: HEPARIN SUBQ SCH ×2 (08:17→21:43)
--- NOTE | 2018-12-27 09:15 | PROGRESS NOTE ---
DATE: 12/27/2018 SUBJECTIVE: This patient seems to be doing better. Blood pressure has been stable as well as her heart rate. She has been having bowel movements. She has been tolerating the nutrition through the NG tube. Yesterday a Vas-Cath was placed for dialysis, and she seems to be doing fine. Chest x-ray showed some bibasilar atelectasis. Probably this patient can be transferred to the medical floor. OBJECTIVE: Vital Signs: Temperature 98.8 degrees, pulse 81, respiratory rate 15, blood pressure 130/86, oxygen saturation 93% on 2 L of nasal cannula. HEENT: Head normocephalic, no trauma, PERRLA. Neck: Supple. No JVD. Central trachea. Chest: Some crepitus at the bases. Decreased breath sounds globally. Abdomen: Soft, generalized tenderness to palpation mostly at the level of the perioperative area. She has multiple scars, but they seems to be clean. No signs of infection or discharge. No bleeding. Positive bowel sounds. Extremities: Trace edema. No clubbing, no cyanosis. Neurological: The patient is alert. She is oriented x3. No focal neurological deficits. LABORATORY: WBC 8.8, hemoglobin 8.6, hematocrit 28.8, platelets 239,000. Sodium 140, potassium 3.3, chloride 101, bicarbonate 22, BUN 35, creatinine 5.1, glucose 94, calcium 8.2, phosphorus 4.4. ASSESSMENT AND PLAN: 1. Septic shock. Initial blood culture was positive for Enterococcal faecium, resistant to vancomycin. New blood cultures from 12/16/2018 and 12/20/2018 and 12/23/2018 negative so far. She is no longer on pressors. Infectious Disease Department on board. 2. Bilateral lower lobe pneumonia. Continue with antibiotics. It looks like it is improving. She is not complaining of shortness of breath or pain or cough at this moment. 3. Chronic obstructive pulmonary disease, pulmonary hypertension, acute hypoxemic and hypercarbic respiratory failure. She was intubated for these issues, but she has been extubated a few days ago. She is breathing more comfortably. She is still on oxygen around 2 L. We will continue with same management. 4. Initially she was admitted due to perforated viscus, free air on abdominal imaging. She was taken to surgery, and a cholecystectomy, appendectomy and pelvic mass was removed. 5. End-stage renal disease. Continue with dialysis per Nephrology Department. 6. Acidosis, better. 7. Morbid obesity with a body mass index of 40.3. 8. Anemia. We will continue to monitor. She received 1 unit of PRBC. The hemoglobin today is 8.6, better compared with yesterday which was 7.2. We will just monitor for now. No signs of bleeding. 9. Nutritional status. For now, will continue with the feeding tube. She has been having bowel movement. She has been tolerating her nutrition. 10. Physical deconditioning and generalized weakness. At home, basically this patient is bed bound. Apparently, she has been having problems with her knees bilaterally. We will continue physical therapy. 11. Overall, this patient is doing better. We will continue with the same management. I believe she can be transferred to the medical floor. cc: Casper Veliz MD
[2018-12-27] MEDS: D50W 250 ML, AMINOSYN 15% 500 ML, LIPOSYN 20% 250 ML MISC SCH ×3 (09:30)
--- NOTE | 2018-12-27 11:44 | PROGRESS NOTE ---
DATE: 12/27/2018 Ms. Alexandria Carmen is a 58-year-old, white female who is status post exploratory laparotomy with a left oophorectomy, open appendectomy, and laparoscopic cholecystectomy. She has end-stage renal disease and requires chronic hemodialysis. Her left arm AV fistula has clotted so I had to place a right internal jugular Trialysis catheter in yesterday. She is in dialysis today. Clinically, I feel she is improving. Her heart rate is 76, blood pressure 126/66, O2 saturation 97%. She has a feeding tube in place. We have been trying to feed her at 30 mL an hour. She has had some bowel movements. We want to try to advance her tube feeding and we want to allow her to eat a diet as she can. Her white blood cell count is normal. Hematocrit is 29%. Chest x-ray shows bilateral atelectasis. There is some increased pulmonary vascularity. Heart size is upper limits of normal. PLAN: We will try to increase her tube feedings or her nutrition by mouth. Her IV antibiotics continue. Wound care continues, midline abdomen. She will have to dialyze with her right-sided Vas-Cath for now. cc: Katharine Dennis MD
[2018-12-27] MEDS ORDERED: VANCOMYCIN 1 GM/NS 1 GM/250 ML IVPB IV ONE (17:00)
--- NOTE | 2018-12-27 21:26 | NEPHROLOGY PROGRESS NOTE ---
DATE: 12/27/2018 SUBJECTIVE: Ms. Carmen is resting quietly in bed. She is awake. She is alert. She is talking. NG tube remains to low intermittent suction. Denies chest pain or increased work of breathing. OBJECTIVE: Vital Signs: Temperature is 98.8 degrees, blood pressure 114/73, heart rate 80, respirations are 18. She is on 2 L nasal cannula. Last recorded saturation 93%. She has had 3170 in. She has had 0 recorded out. LABORATORY DATA: Sodium 140, potassium 3.3, chloride 101, CO2 22, BUN 35, creatinine 5.1, glucose 94. Her anion gap is 17, calcium 8.2, phosphorus 4.4. White count 8.82, hemoglobin 8.6, hematocrit 28.8, with a platelet count of 239,000. ABGs: PH 7.28, CO2 of 50, PO2 77, bicarb 22.3, lactate 0.60 on 2 L nasal cannula. PHYSICAL EXAMINATION: General: This is a 58-year-old white female resting quietly in bed. She appears chronically ill. No acute distress today. Skin: Warm and dry. HEENT: Normocephalic, atraumatic. Conjunctivae pale. She has RITA. Mucous membranes are dry. Neck: Supple. Trachea midline. Unable to determine JVD due to body habitus. Cardiovascular: Regular rate and rhythm. No murmur or gallop on the monitor with an occasional blocked PACs. Lungs: Shallow. Clear to auscultation anteriorly. Equal excursion on O2. Abdomen: Large, round, soft. Hypo bowel sounds present. Abdominal incision remains dry and intact, well-approximated with a slight dressing to the right lower quadrant. Integumentary: As mentioned above. No rashes or lesions evident. Genitourinary: Not inspected. Minimal void with dialysis assist. Extremities: Left upper arm fistula. This is hard to palpate. It has an audible pulse, though no thrill. Patient now has a Vas-Cath to the right IJ, dry and intact. Neurological: She is alert and oriented x3. ASSESSMENT AND PLAN: 1. Chronic kidney disease stage 5D. Patient is due for her routine dialysis treatment tomorrow. Unfortunately, she only had an hour treatment yesterday due to difficulty of cannulation to her left upper extremity fistula. She now has a right internal jugular Vas- Cath. We will plan for dialysis today and possibly again tomorrow to assist with her fluid volume overload as blood pressure indicates. 2. Electrolytes, acid-base balance. These are acceptable with correction on dialysis. 3. Anemia. This remains low. Hemoglobin of 8.6 after 2 units of packed red blood cells. 4. Status post respiratory failure. The patient continues to do well on 2 L of nasal cannula. 5. Atrial fibrillation. The patient is currently in normal sinus rhythm with blocked PACs followed by Cardiology. 6. Status post exploratory laparotomy followed by Surgery and the primary care team. I would like to thank you for allowing us to follow with this patient. Dictated by PATTI Blum for Michael Leavitt MD Face to face encounter, data reviewed, discussed with Sarah Olivia on12/27/18. I agree with the above assessment and plan of care. cc: PATTI Blum MD [facility]
[2018-12-27] MEDS: ZOFRAN IV PRN (21:43)
--- NOTE | 2018-12-27 22:25 | INFECTIOUS DISEASE PROGRESS NO ---
DATE: 12/27/2018 PRESENT ILLNESS: The patient is status post cholecystectomy, appendectomy, lysis of adhesions and resection of a large pelvic mass. The patient has an E coli, group B strep, and Staph epidermidis peritonitis. She also has a vancomycin-resistant enterococcal bacteremia. MEDICATIONS: This is day 4 of treatment with vancomycin and day 8 of treatment with Zosyn. PHYSICAL EXAMINATION: Vital Signs: Temperature is 99 degrees, pulse 83, respirations 14, blood pressure is 102/73. General: This is an ill-appearing, middle-aged obese female. She is in no acute distress. Head, eyes, ears, nose, and throat: She can hear my spoken words and see near objects. She does not have any white patches in her mouth. Neck: The patient has an internal jugular catheter in place for dialysis. Lungs: Clear to auscultation. Cardiovascular: Heart rate is regular. Abdomen: Soft and not tender to light touch. The patient's midline incision does have some serosanguineous drainage and some of parts of the incision seem open up a little bit. The patient does have a dressing on the incision. The patient's AV fistula in the left arm has stopped working. Neurologic: The patient is alert. She can move her extremities. There is no tremor. LAB AND X-RAY: CBC shows a white count of 8820, hemoglobin 8.6, platelet count 239,000. Blood gases show a pH of 7.28, a pO2 of 77, a pCO2 of 50, creatinine is 5.1, GFR is 35. Blood culture is growing Enterococcus. Abdominal culture grew E coli, group B strep and Staph epidermidis. ASSESSMENT AND PLAN: I plan to continue the current antibiotics consisting of Zosyn and vancomycin for the patient's peritonitis, pneumonia and vancomycin-resistant enterococcal bacteremia. COMORBIDITIES: The patient is morbidly obese. She has end-stage renal disease and is on hemodialysis. She also has congestive heart failure. cc: Reji Henley MD
[2018-12-28] MEDS: ZOSYN 2.25 GM in NS 50 ML IV SCH ×4 (03:00→21:40)
--- NOTE | 2018-12-28 05:00 | PULMONOLOGY PROGRESS NOTE ---
DATE: 12/27/2018 SUBJECTIVE: The patient is awake, alert, and conversant. She denies shortness of breath. She is tolerating tube feeds. She has completed dialysis and is being transferred to the 4th floor. OBJECTIVE: Vital Signs: The patient has been afebrile for the last 24 hours. Blood pressure 102/73, heart rate 83, respiratory rate 14, oxygen saturation 96% on 2 L per nasal cannula. HEENT: Pupils are equal and reactive. Oropharynx appears clear. Neck: Supple. Chest: Reveals mild crackles in the lung bases. Cardiac: S1, S2. Abdomen: Soft with positive bowel sounds. Extremities: Reveal trace edema. LABORATORIES: White blood count 8.82, hemoglobin 8.6, platelet count 239,000. Arterial blood gas reveals a pH 7.28, pCO2 of 50, PO2 of 77. IMPRESSION: A 58-year-old with 1. Acute hypoxemic respiratory failure. 2. Pneumonia with continued improvement. 3. Peritonitis. 4. End-stage renal disease. 5. Morbid obesity. PLAN: 1. Continue bronchial hygiene. 2. Continue antibiotics per Infectious Disease. 3. Continue physical therapy. 4. Hemodialysis per Nephrology. 5. Continue DVT prophylaxis. 6. Anticipate transfer to the floor, which is in progress. cc: Vinny Rodriguez MD
[2018-12-28 05:11] LABS: ALLEN TEST YES; BE -0.4 mmoll (-3.0-3.0); BLOOD TYPE ARTERIAL; HCO3-(ACT) 24.6 mmoll (20.0-26.0); METHB 0.5 % (0.0-1.5); MODALITY CANNULA; O2(CT) 13.8 mL/dL (15.0-23.0); PCO2(98.6) 42 mmHg (35-45); PO2(98.6) 107 mmHg (60-100); SAMPLE BLOOD; SAO2 98.9 % (95.0-100.0); pH(98.6) 7.38 (7.35-7.45)
[2018-12-28] MEDS: PROTONIX IV SCH (05:56)
[2018-12-28] MEDS: SODIUM CHLORIDE 0.9% INJ SCH (05:57)
--- NOTE | 2018-12-28 06:32 | Diag Imaging Result Doc PS360 ---
CHEST-PORTABLE - 12/28/2018 INDICATION: dyspnea COMPARISON: 12/27/2018 FINDINGS: Support lines and tubes are stable. There is been some slight improvement in the right basilar airspace opacity consistent with atelectasis or infiltrate. Stable minimal linear opacity in the left lung base. Heart size remains top normal. No pneumothorax or large pleural effusion. IMPRESSION: Slight improved aeration of the right lung base. Electronically signed by Chance Sommers 12/28/2018 6:29 AM
[2018-12-28 08:01] LABS: BASO# 0.17 X1000 (0.0-0.2); BASO% 1.6 % (0.0-0.8); EOS# 0.33 X1000 (0.0-0.7); EOS% 3.2 % (0.0-10.0); HEMATOCRIT 34.1 % (37.0-47.0); HEMOGLOBIN 10.2 g/dL (12.0-16.0); IMM GRAN# 0.17 X1000 (0.0-0.04); IMM GRAN% 1.6 % (0.0-0.5); LYMPH# 1.44 X1000 (1.2-3.4); LYMPH% 13.8 % (20.5-51.1); MCH 32.1 PG (27-31); MCHC 29.9 g/dL (33-37); MCV 107.2 FL (81-99); MONO# 1.03 X1000 (0.11-0.59); MONO% 9.8 % (1.7-9.3); MPV 11.1 FL (7.4-10.4); NEUT# 7.32 X1000 (1.4-6.5); PLT 243 X1000 (130-400); RBC 3.18 XMIL (4.2-5.4); RDW 15.6 % (11.5-14.5); WBC 10.46 X1000 (4.8-10.8)
[2018-12-28] MEDS: HEPARIN SUBQ SCH ×2 (08:03→21:39)
[2018-12-28] MEDS: PERIDEX MT SCH ×2 (08:04→21:40)
[2018-12-28 08:14] LABS: CALCIUM 9.1 mg/dL (8.8-10.2); CREATININE 4.2 mg/dL (0.5-0.9); POTASSIUM 3.3 mmol/L (3.5-5.1)
[2018-12-28 09:07] LABS: LYMPHS 22 % (21-51); MONO 2 % (1-9); SEGS 76 % (42-75)
--- NOTE | 2018-12-28 12:34 | PROGRESS NOTE ---
DATE: 12/28/2018 SUBJECTIVE: The patient is doing better. She has a clot at the level of the AV fistula, and that hopefully will be repaired today. Surgery on board. X-ray looks a little bit better compared with the previous ones. Vital signs are stable as well as lab work. OBJECTIVE: Vital Signs: Temperature 98.1 degrees, pulse 80, respiratory rate 20, blood pressure 130/47, and oxygen saturation 100% on 2 L of nasal cannula. HEENT: Head normocephalic. No trauma. PERRLA. Neck: Supple. No JVD. No masses. Central trachea. Chest: There is some crepitus at the bases. Decreased breath sounds globally. Abdomen: Soft and generalized tenderness to palpation mostly at the level of the perioperative area. She has multiple scars, but they seem to be clean. No signs of infection or discharge. No bleeding. Positive bowel sounds. Extremities: Trace edema. No clubbing. No cyanosis. Neurological: The patient is alert. She is oriented x3. No focal deficits. LABORATORY: WBC 10.4, hemoglobin 10.2, hematocrit 34.1, and platelets 243,000. Sodium 138, potassium 3.3, chloride 97, bicarbonate 23, BUN 27, creatinine 4.2, glucose 108, calcium 9.1, and phosphorus 4.2. ASSESSMENT AND PLAN: 1. Septic shock. Initial blood culture was positive for enterococcal infection, Infectious Disease Department on board. She is not on pressors. New blood cultures from 12/20/2018 and 12/23/2018 negative so far. 2. Bilateral lower lobe pneumonia. Continue with antibiotics. She looks better. 3. COPD, pulmonary hypertension and acute hypoxemic and hypercarbic respiratory failure. Continue with oxygen supplementation. She seems to be better. 4. Initially admitted due to perforated viscus, free air on abdominal imaging. She was taken to surgery, and a cholecystectomy, appendectomy, and pelvic mass has been removed. 5. End-stage renal disease. Continue with dialysis as scheduled. 6. Clotted AV fistula. Hopefully, she will go for surgery today. 7. Morbid obesity with a body mass index of 43.8. Aware. 8. Anemia. We will continue to monitor status post 1 PRBC. 9. Nutritional status. She has been getting nutrition through her feeding tube. Yesterday, she was tolerating p.o. though. She is NPO today because she will go for surgery, but hopefully she will come back and get a diet by mouth again. 10. Physical deconditioning and generalized weakness. At home, basically this patient is bed bound. Apparently, she has been having problem with her knees bilaterally. We will continue physical therapy. 11. Overall, this patient is doing better. We will continue with same management. She will go for surgery today. cc: Casper Veliz MD MTDD
[2018-12-28] MEDS ORDERED: HEPARIN ONE ×2 (13:38)
[2018-12-28] MEDS ORDERED: NS 2,000 ML ONE (13:38)
--- NOTE | 2018-12-28 13:52 | INFECTIOUS DISEASE PROGRESS NO ---
DATE: 12/28/2018 PRESENT ILLNESS: Ms. Carmen is being treated for a vancomycin-resistant enterococcal bacteremia. She is status post cholecystectomy, appendectomy, lysis of adhesions, and resection of a large pelvic mass. There is peritonitis with an E. coli, group B strep, and Staph epidermidis. There is also atelectasis versus pneumonia as noted on her chest x-ray. MEDICATIONS: Based on her sterile blood cultures, today is day 8 of treatment for her bacteremia. She is receiving Zosyn 2.25 g IV every 6 hours as a renally modified dose. She is also receiving vancomycin 1 g IV after dialysis. PHYSICAL EXAMINATION: Vital Signs: Temperature is 98.3 degrees, pulse rate 89, respiratory rate 18, blood pressure 107/51, O2 saturation is 96% on room air. General: This is a morbidly obese, chronically ill-appearing, middle-aged female. She is lying in bed, currently in no acute distress. HEENT: Atraumatic, normocephalic. Oral mucous membranes are pink and dry. Conjunctivae are pink. Respiratory: Lung sounds are clear in the upper lobes. Diminished in the mid and bases. No work of breathing is noted. Cardiovascular: Heart rate is regular. Integumentary: There is a midline abdominal incision which has a dressing, dry and intact, which is in place and not removed at this time. Integumentary: Skin is generally warm and dry. There is a right intrajugular dialysis catheter. That site is without edema, erythema, or drainage. The AV fistula in place to her left upper arm has no thrill or bruit. Neurologic: She is awake, alert, oriented, able to move around in the bed with assistance. No tremor is noted. LABORATORY AND X-RAY: Today her white count is 10.46, hemoglobin 10.2, platelet count 243,000. On 28% FiO2. Her pH is 7.3, pCO2 42, PO2 107, HCO3 24.6, creatinine is 4.2, GFR 11. Chest x-ray today shows slight improvement in the aeration of her lung on the right. ASSESSMENT AND PLAN: Ms. Carmen is being treated for a peritonitis and vancomycin-resistant enterococcal bacteremia. There is also the possibility of a pneumonia as seen on the chest x-ray. She is receiving renally dosed Zosyn as well as vancomycin after each dialysis treatment, which we will continue at this time. These plans have been discussed with and recommended by Dr. Henley. COMORBIDITIES: For Ms. Carmen include morbid obesity, end-stage renal disease with hemodialysis, congestive heart failure, and now she has a blockage to the AV fistula in her left upper arm. Dictated by PATTI Soto for Reji Henley MD cc: Reji Henley MD [facility]
[2018-12-28] MEDS ORDERED: DIPRIVAN 1% ONE (14:15)
[2018-12-28] MEDS ORDERED: XYLOCAINE-MPF 2% ONE (14:16)
[2018-12-28] MEDS ORDERED: DECADRON ONE (15:45)
[2018-12-28] MEDS ORDERED: ZOFRAN ONE (15:45)
[2018-12-28] MEDS ORDERED: ROBINUL ONE (15:45)
[2018-12-28] MEDS ORDERED: FENTANYL ONE (15:48)
--- NOTE | 2018-12-28 21:55 | NEPHROLOGY PROGRESS NOTE ---
DATE: 12/28/2018 TIME SEEN: 0715 hours. SUBJECTIVE: Ms. Carmen is sitting up in bed. She is more awake and alert today, states that she is feeling just slightly better. She does realize after trying to get up with physical therapy yesterday evening that she is very weak, and may possibly require rehab. OBJECTIVE: Vital signs: Her last temperature was 98.3 degrees, blood pressure 107/51, heart rate is 89, respirations 18. She is on 2 L nasal cannula. Last recorded saturation 96%. She has had 1155 in. She has had zero recorded out with dialysis.General: This is a 58-year-old white female resting quietly in bed. She appears chronically ill, in no acute distress. Skin: Warm and dry. HEENT: Normocephalic, atraumatic. Conjunctivae are pale pink. Mucous membranes are dry. Neck: Supple. Trachea midline. Unable to determine JVD. Right Vas-Cath remains intact. Cardiovascular: Regular rate and rhythm. No murmur or gallop appreciated. Lungs: Shallow. Clear to auscultation anteriorly. Equal excursion, on O2. Abdomen: Large, round, soft, nontender. Positive bowel sounds. Midline incision remains intact. Slight dressing to the right lower quadrant, not inspected. Genitourinary: Minimal void, with dialysis assist. Extremities: Left upper arm fistula. This remains hard to palpate. Audible pulse. No thrill. Neurological: She is alert and oriented x3. LABORATORY DATA: Sodium is 138, potassium 3.3, chloride 97, CO2 is 23, BUN 27, creatinine 4.2, glucose 108. Her anion gap is 18, calcium 9.1, phosphorus 4.2, albumin 10.46. Hemoglobin 10.2, hematocrit is 34.1 with a platelet count of 243,000. ABG: PH 7.38, CO2 is 42, PO2 is 107, bicarbonate 24.6, with a lactate of 1 on 2 L nasal cannula. ASSESSMENT AND PLAN: 1. Chronic kidney disease stage 5D. The patient had a dialysis treatment through her Vas-Cath yesterday evening. She was pulled without any ultrafiltration due to blood pressure issues. We have requested Dr. Dennis to evaluate her left upper arm fistula, with plan for dialysis in the morning. 2. Electrolytes and acid-base balance. These are acceptable, with mild hypokalemia. Plan for correction on dialysis in the a.m. 3. Anemia. This is low but stable. 4. Status post respiratory failure. The patient remains on oxygen support. 5. Atrial fibrillation. She continues to be followed by Cardiology. 6. Status post exploratory laparotomy, status post appendectomy, cholecystectomy and left ovarian cyst resection. This is followed by Surgery and primary care. We would like to thank you for allowing us to follow with this patient. Dictated by PATTI Blum for Michael Leavitt MD Face to face encounter, data reviewed, discussed with Sarah Olivia on 12/28/18. I agree with the above assessment and plan of care. cc: PATTI Blum MD [facility]
[2018-12-29] MEDS: TYLENOL PO PRN ×2 (00:07→20:03)
[2018-12-29] MEDS: ZOSYN 2.25 GM in NS 50 ML IV SCH ×3 (02:57→20:04)
--- NOTE | 2018-12-29 03:11 | OPERATIVE NOTE ---
PROCEDURE DATE: 12/28/2018 PREOPERATIVE DIAGNOSIS: Nonfunctional left arm cephalic vein to brachial artery arteriovenous fistula. POSTOPERATIVE DIAGNOSIS: Nonfunctional left arm cephalic vein to brachial artery arteriovenous fistula. PRINCIPLE PROCEDURES: Thrombectomy, left arm arteriovenous fistula. SURGEON: Katharine Dennis MD. ANESTHESIA: General, in addition to local anesthetic. ESTIMATED BLOOD LOSS: 150 mL. DRAINS: None. INDICATIONS: Ms. Alexandria Carmen is a 58-year-old, morbidly obese, white female who has been hospitalized after abdominal surgery. She has end-stage renal disease and requires chronic hemodialysis. She has been dialyzing through a left arm AV fistula placed by Dr. Cope, but during this hospitalization that fistula has clotted and thrombectomy was recommended. FINDINGS: She had a large vein but it became sclerotic near the arterial anastomosis. I never could get good inflow back through this fistula to make it adequate for hemodialysis. DESCRIPTION OF PROCEDURE: The patient was brought to the operating room, placed supine, received general anesthesia, was ventilated. The left arm was prepped and draped in a sterile field. I began the procedure by making a transverse incision overlying the AV fistula in the distal left arm. This incision was made with a 15 blade scalpel. I used forceps and scissors to identify the AV fistula and dissected a segment of this fistula out and isolated it with 2 vessel loops. I opened the vein transversely, it was a large vein, and I removed a large amount of clot from the venous side of this AV fistula. I did re-establish venous back bleeding. I flushed it with heparin and saline, and clamped it with a 35-35 vascular clamp, and then I worked to established inflow. I could never get my Renetta, trying a 3 and a 4 Renetta, into the artery to re- established inflow, so I made a counter incision closer to the arterial anastomosis, where I could dissect out the cephalic vein and brachial artery anastomosis. I reopened the fistula, it was sclerotic in this area and not large. The vein was thickened, as expected, and again, I tried to re-established inflow closer to the anastomosis and I could not thread a Renetta into the [place] artery to reestablish flow. I attempted 3-0 and 4-0 Renetta catheters. I tried a dilator gently and I could never re-established flow. I still had a palpable pulse past the anastomosis in the arm, so I felt that I had not injured the brachial artery or affected flow distally to the left hand. We aborted the procedure and I did not have good enough inflow to maintain this fistula. I closed my 2nd incision in the fistula transversely with a 5-0 running Prolene stitch. The 1st incision in the AV fistula was also closed transversely with 5-0 Prolene stitch. I closed my 2 incisions in layers. First layer is 3-0 popoff Vicryl stitches to close the subcutaneous tissue, skin was closed with interrupted vertical mattress 3-0 nylon stitches. Dry dressings were applied, followed by Kerlix. Plans are for her to go to the recovery room and then return to the floor. She will have to dialyze using a right IJ Vas-Cath. cc: Katharine Dennis MD
[2018-12-29] MEDS ORDERED: HEPARIN IV PRN (06:15)
[2018-12-29] MEDS ORDERED: NS 2,000 ML MISC PRN (06:15)
[2018-12-29] MEDS ORDERED: TIGHT: 0.2 ML/HR FOR DIALYSIS MISC PRN (06:15)
--- NOTE | 2018-12-29 06:26 | PULMONOLOGY PROGRESS NOTE ---
DATE: 12/28/2018 SUBJECTIVE: The patient is awake, alert, and conversant. She has a good cough with occasional sputum production. She is having difficulty with her arterial venous fistula. OBJECTIVE: The patient has been afebrile for the last 24 hours. Blood pressure 130/70, heart rate 88, and respiratory rate 16. Oxygen saturation 94% on 2 L per nasal cannula.HEENT: Pupils are equal and reactive. Oropharynx is clear. Neck: Supple. Chest: Reveals minimal crackles in the lung bases. Cardiac: S1-S2. Abdomen: Obese and soft with no significant drainage from her wound sites. Extremities: Without edema. LABORATORIES: Chest x-ray reveals decreased infiltrate at the right base with stable changes at the left base. White blood count 10.46, hemoglobin 10.2, and platelet count 243,000. Arterial blood gas pH 7.38, pCO2 of 42, and PO2 of 107. IMPRESSION: A 58-year-old with the followin. Pneumonia. 2. Acute hypoxemic respiratory failure. 3. Peritonitis. 4. End-stage renal disease. 5. Morbid obesity. DISCUSSION: A 4-year-old with problems outlined above. She continues to improve. Anticipate discharge home or to rehab soon. PLAN: 1. Continue bronchial hygiene. 2. Continue antibiotics for pneumonia and bacteremia under the direction of Dr. Reji Henley. 3. Wean oxygen as tolerated. cc: Vinny Rodriguez MD
[2018-12-29] MEDS: PROTONIX IV SCH (06:31)
[2018-12-29] MEDS: HEPARIN SUBQ SCH ×2 (09:21→22:01)
[2018-12-29] MEDS: PERIDEX MT SCH ×2 (09:22→20:03)
[2018-12-29] MEDS ORDERED: CALMOSEPTINE OINTMENT TOP PRN (10:33)
[2018-12-29 11:17] LABS: BASO# 0.18 X1000 (0.0-0.2); BASO% 1.7 % (0.0-0.8); EOS# 0.39 X1000 (0.0-0.7); EOS% 3.6 % (0.0-10.0); HEMATOCRIT 28.8 % (37.0-47.0); HEMOGLOBIN 8.5 g/dL (12.0-16.0); IMM GRAN# 0.13 X1000 (0.0-0.04); IMM GRAN% 1.2 % (0.0-0.5); LYMPH# 1.83 X1000 (1.2-3.4); MCH 31.8 PG (27-31); MCHC 29.5 g/dL (33-37); MCV 107.9 FL (81-99); MONO# 1.09 X1000 (0.11-0.59); MONO% 10.1 % (1.7-9.3); MPV 11.2 FL (7.4-10.4); NEUT# 7.13 X1000 (1.4-6.5); NEUT% 66.4 % (42.2-75.2); PLT 255 X1000 (130-400); RBC 2.67 XMIL (4.2-5.4); RDW 15.4 % (11.5-14.5); WBC 10.75 X1000 (4.8-10.8)
[2018-12-29 12:08] LABS: ALBUMIN 3.3 g/dL (3.5-5.0); CALCIUM 8.7 mg/dL (8.8-10.2); PHOSPHORUS 5.6 mg/dL (2.7-4.5); POTASSIUM 3.5 mmol/L (3.5-5.1)
[2018-12-29 12:13] LABS: CREATININE 6.1 mg/dL (0.5-0.9)
--- NOTE | 2018-12-29 12:31 | PROGRESS NOTE ---
DATE: 12/29/2018 Ms. Alexandria Carmen is awake, cooperative. She is eating. She has a gastric feeding tube in place. Will remove that because I think she can get her calories normally by mouth. We tried to declot her left arm AV fistula yesterday, and could not get inflow, so it is still nonfunctional. She is dialyzing with a right-sided Vas-Cath. I think she is getting over her abdominal surgery nicely. Her midline incision is intact without evidence of infection. I removed some skin clips from her trocar sites. She is going to dialysis today. She will need PermCath at some point. Overall, I think she is progressing. We need to get Physical Therapy to start getting her in bed. Will stop her telemetry so that she has less wires connecting to her. Will change IV medications to p.o. cc: Katharine Dennis MD
--- NOTE | 2018-12-29 15:25 | NEPHROLOGY PROGRESS NOTE ---
DATE: 12/29/2018 SUBJECTIVE: Ms. Carmen is resting quietly in bed. She states that she is tired of being in the hospital. Now she has abdominal discomfort along with left upper arm discomfort due to attempted fistulogram to her left upper AV fistula yesterday. OBJECTIVE: Vital Signs: Temperature 97.6 degrees, blood pressure 176/68, heart rate 80, respirations 18. She is on 3 L nasal cannula. Last recorded saturation 100%. She has had 1083 in, 150 out to void. LABS: Are currently pending. These are to be drawn while she is on dialysis. Potassium previously of 3.3 with hemoglobin 10.2. PHYSICAL EXAMINATION: General: This is a 58-year-old white female resting quietly in bed. She appears chronically ill in no acute distress. Skin: Warm and dry. HEENT: Normocephalic, atraumatic. Conjunctiva is pale pink. She has RITA. Mucous membranes are dry. Neck: Supple. Trachea midline. No evidence of JVD. Vas-Cath remains to the right IJ. This is dry and intact. Unable to determine JVD. Cardiovascular: Regular rate and rhythm. No murmur or gallop appreciated. Lungs: Clear to auscultation bilaterally. Equal excursion. Shallow respiratory inspiration. Remains on O2 support. Abdomen: Large, round, soft. Quiet bowel sounds remain. Midline incision is intact, light dressing to her right lower quadrant, not inspected. Genitourinary: Minimal void with dialysis assist. Extremities: With left upper arm fistula nonpalpable. Dressing is in place. Neurological: Alert and oriented x3. ASSESSMENT AND PLAN: 1. Chronic kidney disease stage 5D. The patient did not have her routine dialysis treatment yesterday secondary to thrombectomy. Unfortunately, this was unsuccessful. We will plan for dialysis today per her Vas-Cath to the right internal jugular. We will place her on a 3 K bath. She is to dialyze for 3.5 hours. We will attempt to pull patient to her dry weight. 2. Electrolytes and acid-base balance. This is acceptable. 3. Mild hypokalemia. Again with address on dialysis. 4. Anemia. This is low but stable. 5. Atrial fibrillation. Patient is currently in sinus rhythm on the monitor. Rate controlled. 6. Exploratory laparotomy, status post appendectomy, cholecystectomy, and left ovarian cyst resection followed by Surgery and the primary care. I would like to thank you for allowing us to follow with this patient. Dictated by PATTI Blum for Michael Leavitt MD Face to face encounter, data reviewed, discussed with Sarah Olivia on 12/29/18. I agree with the above assessment and plan of care. cc: PATTI Blum MD [facility]
[2018-12-29] MEDS ORDERED: VANCOMYCIN 1 GM/NS 1 GM/250 ML IVPB IV ONE (17:00)
[2018-12-29] MEDS: CALMOSEPTINE OINTMENT TOP SCH (18:05)
--- NOTE | 2018-12-29 18:54 | PROGRESS NOTE ---
DATE: 12/29/2018 SUBJECTIVE: Patient is lying comfortably in bed. She is complaining of generalized weakness and back discomfort. Surgery tried to remove the clot from her left arm AV fistula yesterday, but they could not get inflow so is not functional. She has been getting dialysis with a right-sided Vas-Cath, and probably she will need a permanent catheterization. Her abdomen looks better. She is tolerating p.o. and having bowel movements. Physical therapy on board. We discussed the possibility of sending this patient to a rehab center, and she agreed with this. PHYSICAL EXAMINATION: Vital signs: Temperature 97.9 degrees, pulse 83, respiratory rate 18, blood pressure 122/52, oxygen saturation 96 on 4 L of nasal cannula. HEENT: Head normocephalic. No trauma. PERRLA. Neck: Supple. No JVD. No masses. Central trachea. Chest: Some crepitus at the bases. Abdomen: Decreased bowel sounds globally. Abdomen: Soft. Generalized tenderness to palpation but much better. Positive bowel sounds. She has multiple scars. They look clean. No signs of infection. No bleeding. Positive bowel sounds. Extremities: Trace edema. No clubbing. No cyanosis. Neurological examination: The patient is alert. She is oriented x3. No focal deficits. LABORATORY: WBC 10.7, hemoglobin 8.5, hematocrit 28.8, platelets 255,000. Sodium 139, potassium 3.5, chloride 97, bicarbonate 23, BUN 39, creatinine 6.1, glucose 109, calcium 8.7, phosphorus 5.6. ASSESSMENT AND PLAN: 1. Septic shock. Initial blood culture was positive for Enterococcus faecium. Infectious Diseases Department on board. New blood cultures from 12/20/2018 and 12/23/2018 are negative so far. 2. Bilateral lower lobe pneumonia. Continue with antibiotics. She looks better. 3. Chronic obstructive pulmonary disease, pulmonary hypertension and acute hypoxemic and hypercarbic respiratory failure. Continue with oxygen supplementation. She seems to be better. 4. Initially admitted due to perforated viscus. Free air on abdominal imaging. She was taking to surgery and a cholecystectomy with appendectomy and pelvic mass has been removed. 5. End-stage renal disease. Continue with dialysis as scheduled. 6. Clotted arteriovenous fistula. She went for surgery yesterday, but they were not able to remove the clot. They are using a Vas-Cath at this moment, but probably she will need a permanent 1. 7. Obesity with a body mass index of 45.2. 8. Anemia. We will continue to monitor status post 1 PRBC. 9. Nutritional status. She used to be getting nutrition through the NG tube, but now she is tolerating p.o. 10. Physical deconditioning and generalized weakness at home. Apparently, she was able to move a little bit with a front wheel walker, but she has not been walking during this hospitalization. She is not able to get up by herself. Physical therapy on board and the plan is to probably send this patient to a rehab center. 11. Overall, I do believe this patient is better. We will continue with same management. She probably will need to go to a rehab center. cc: Casper Veliz MD
--- NOTE | 2018-12-29 21:56 | INFECTIOUS DISEASE PROGRESS NO ---
DATE: 12/29/2018 PRESENT ILLNESS: Ms. Carmen is being treated for vancomycin-resistant enterococcal bacteremia. She is status post appendectomy, cholecystectomy, lysis of adhesions, and resection of a large pelvic mass. She has a peritonitis with an Escherichia coli, group B streptococcus, and Staphylococcus epidermidis growing. She also is being treated for pneumonia versus atelectasis on her chest x-ray. MEDICATIONS: Based on her sterile blood cultures, today is day 9 of treatment for her bacteremia using Zosyn 2.25 g IV every 6 hours as a renally modified dose. She is also receiving IV vancomycin 1 g after each dialysis treatment. PHYSICAL EXAM: Vital signs: Temperature is 97.9 degrees, pulse rate 83, respiratory rate 18, blood pressure 122/52, O2 saturation is 96% on 4 L nasal cannula. General: This is a morbidly obese, chronically ill-appearing middle-aged female. She is sitting up in bed, currently in no acute distress. HEENT: Atraumatic, normocephalic. Oral mucous membranes are pink and moist. Conjunctivae are pale. Neck shows a right intrajugular central line. That site is without edema, erythema or drainage. Respiratory: Lung sounds are clear to auscultation in the upper lobes, diminished in the mid and bases. No work of breathing is noted. Cardiovascular: Heart rate is regular. Integumentary: There is a midline abdominal incision with a dry intact dressing, which was not removed at this time. There is no drainage noted on the dressing. Skin is warm and dry. There is also a dressing in place to the left upper arm where her AV fistula is located. Neurologic: She is awake, alert and oriented, with decreased mobility to her left upper extremity and generalized weakness to the lower extremities. No tremors are noted. LAB AND X-RAY: Today her white count is 10.75, hemoglobin 8.5, platelet count 255,000. Creatinine is 6.1, GFR is 7. Her original blood cultures grew vancomycin- resistant enterococcus, and her abdominal culture grew an Escherichia coli, a group B streptococcus agalactiae and Staphylococcus epidermidis. No imaging reports today. ASSESSMENT AND PLAN: Ms. Carmen is being treated for a peritonitis and a vancomycin-resistant enterococcal bacteremia. Today is day 9 of treatment for her bacteremia. She will need a total of 14 days of treatment for the bacteremia. She also has a pneumonia which we are treating using vancomycin after each dialysis, which we will continue at this time. We will go ahead and put in a chest x-ray for tomorrow, and blood work has already been ordered. These plans have been discussed with and recommended by Dr. Henley. COMORBIDITIES: for Ms. Carmen include morbid obesity, endstage renal disease with hemodialysis, congestive heart failure and a blocked arteriovenous fistula to the left upper arm. Dictated by PATTI Soto for Reji Henley MD cc: Reji Henley MD [facility]
[2018-12-30] MEDS: ZOSYN 2.25 GM in NS 50 ML IV SCH ×5 (02:44→21:11)
--- NOTE | 2018-12-30 02:48 | PULMONOLOGY PROGRESS NOTE ---
DATE: 12/29/2018 SUBJECTIVE: The patient is awake and alert. She reports she has "had a very bad day," and feels bad because her fistula is not working. She is tolerating p.o. intake. She denies shortness of breath or sputum production. OBJECTIVE: Vital Signs: The patient has been afebrile for the last 24 hours. Blood pressure 122/52, heart rate 83, respiratory rate 18, oxygen saturation 96% on 4 L per nasal cannula. HEENT: Pupils are equal and reactive. Oropharynx appears clear. Neck: Supple. Chest: Reveals shallow breath sounds bilaterally with crackles in both lung bases. Cardiac: S1, S2. Abdomen: Obese and soft. Extremities: Without edema. LABORATORIES: White blood count 10.75, hemoglobin 8.5, platelet count 255,000. Sodium 139, potassium 3.5, chloride 97, bicarbonate 23, BUN 39, creatinine 6.1. IMPRESSION: A 58-year-old with 1. Pneumonia. 2. Acute hypoxemic respiratory failure. 3. Status post abdominal surgery for peritonitis. 4. Morbid obesity. 5. End-stage renal disease. PLAN: 1. Continue bronchial hygiene. 2. Continue antibiotics per Dr. Reji Henley. 3. Follow up chest x-ray tomorrow. 4. Wean oxygen as tolerated. cc: Vinny Rodriguez MD
[2018-12-30] MEDS: ZOFRAN IV PRN (03:29)
[2018-12-30] MEDS: CALMOSEPTINE OINTMENT TOP SCH ×5 (03:43→21:40)
[2018-12-30] MEDS: PROTONIX PO SCH (06:11)
--- NOTE | 2018-12-30 06:14 | Diag Imaging Result Doc PS360 ---
EXAM: CHEST-PORTABLE HISTORY: pneumonia TECHNIQUE: Single view COMPARISON: 12/28/2018 FINDINGS: The lungs are well expanded. The heart is not enlarged. The vessels are distended. There are no infiltrates. No effusion identified. No change in the right jugular line. No pneumothorax. IMPRESSION: Mild pulmonary edema. Electronically signed by Mike Banerjee 12/30/2018 6:11 AM
[2018-12-30 07:28] LABS: BASO# 0.22 X1000 (0.0-0.2); BASO% 2.4 % (0.0-0.8); EOS# 0.49 X1000 (0.0-0.7); EOS% 5.4 % (0.0-10.0); HEMATOCRIT 31.1 % (37.0-47.0); IMM GRAN# 0.11 X1000 (0.0-0.04); IMM GRAN% 1.2 % (0.0-0.5); LYMPH# 1.39 X1000 (1.2-3.4); LYMPH% 15.4 % (20.5-51.1); MCH 31.3 PG (27-31); MCHC 28.9 g/dL (33-37); MONO# 0.96 X1000 (0.11-0.59); MONO% 10.6 % (1.7-9.3); MPV 11.1 FL (7.4-10.4); NEUT# 5.85 X1000 (1.4-6.5); PLT 262 X1000 (130-400); RBC 2.88 XMIL (4.2-5.4); RDW 15.4 % (11.5-14.5); WBC 9.02 X1000 (4.8-10.8)
[2018-12-30 08:04] LABS: CALCIUM 8.5 mg/dL (8.8-10.2); CREATININE 4.4 mg/dL (0.5-0.9); POTASSIUM 3.4 mmol/L (3.5-5.1)
[2018-12-30 08:20] LABS: BANDS 2 % (0-1); HYPOCHROM 2+; LARGE PLATELETS 1+; LYMPHS 14 % (21-51); SEGS 84 % (42-75)
[2018-12-30] MEDS: PERIDEX MT SCH ×2 (10:01→21:11)
[2018-12-30] MEDS: HEPARIN SUBQ SCH ×2 (10:01→21:12)
[2018-12-30] MEDS: TYLENOL PO PRN (10:14)
--- NOTE | 2018-12-30 14:00 | PROGRESS NOTE ---
DATE: 12/30/2018 Ms. Alexandria Carmen is status post left oophorectomy, laparoscopic cholecystectomy, and open appendectomy. During this hospitalization, her left arm AV fistula has clotted and I could not declot it. She is dialyzing with a right internal jugular vein Vas-Cath and needs more long-term access. She is very weak and she is working with physical therapy. But clinically on a daily basis she is getting better and better. She looks comfortable. Her left arm wounds are intact, seem to be healing. Her midline abdominal wound is healing nicely without infection. OBJECTIVE: Heart rate is 86, blood pressure 98/45, O2 saturation 93%. She is afebrile. She is getting intermittent hemodialysis. Her white blood cell count is normal. Hematocrit is 31%. BUN and creatinine today are 25 and 4.4. Chest x-ray shows mild pulmonary edema. She is on a renal failure diet and is having loose stools. cc: Katharine Dennis MD
--- NOTE | 2018-12-30 14:49 | PROGRESS NOTE ---
DATE: 12/30/2018 SUBJECTIVE: Patient is lying comfortably in bed. It looks like she is going to get a permanent catheter for dialysis possible this weekend, she refused to go to a rehab center. She wants to go home with home health. I already talked to the manager social work, I already talked to the surgeon and Infectious Disease Department to try to send her home this weekend if possible. OBJECTIVE: Vital Signs: Temperature 98.1 degrees, pulse 86, respiratory rate 18, blood pressure 98/45, oxygen saturation 93 on 4 L of nasal cannula. HEENT: Head normocephalic, no trauma. PERRLA. Neck: Supple, no JVD. No masses. Central trachea. Chest: Crepitus at the bases. Abdomen: Soft. Positive bowel sounds. She has multiple scars but they look clean. No bleeding. Extremities: Trace edema. No clubbing, no cyanosis. Neurological: The patient is alert. She is oriented x3. No focal deficits. LABORATORY: WBC 9, hemoglobin 9, hematocrit 31.1, platelets 262,000, sodium 138, potassium 3.4, chloride 97, bicarbonate 22, BUN 25, creatinine 4.4, glucose 92, calcium 8.5. ASSESSMENT AND PLAN: 1. Septic shock. Initial blood culture was positive for Enterococcus faecium. Infectious Disease Department on board. Blood cultures from 12/20/2018 and 12/23/2018 are negative so far. 2. Bilateral lower lobe pneumonia. Continue with antibiotics. She looks better. 3. COPD, pulmonary hypertension, and acute hypoxemic and hypercarbic respiratory failure. Continue with oxygen supplementation. She seems to be better. 4. Initially admitted due to perforated viscus, free air on abdominal image. She was taken to surgery and a cholecystectomy with appendectomy, a pelvic mass has been removed. 5. End-stage renal disease. Continue with dialysis as scheduled. 6. Clotted AV fistula. She went for surgery 2 days ago and they were not able to remove the clot. The plan is to put a permanent cath so she can be dialyzed. 7. Obesity with a body mass index of 44.4. Aware. 8. Anemia. Continue to monitor status post one PRBC. 9. Nutritional status. She used to be getting nutrition through an NG tube but now she is tolerating p.o. 10. Physical deconditioning and generalized weakness. Apparently, she was able to move a little bit with a front wheel walker at home but she has not been walking too much during this hospitalization. I offered the possibility of rehab for this patient, but she refused. She wants to go home with home health and physical therapy. 11. This patient is doing better. We will continue with same management. The plan is to put a permanent catheter for this patient and then if all the medications are set up, to send this patient home. cc: Casper Veliz MD
[2018-12-30] MEDS: NORCO-10 PO PRN ×2 (14:57→22:59)
--- NOTE | 2018-12-30 15:12 | NEPHROLOGY PROGRESS NOTE ---
DATE: 12/30/2018 SUBJECTIVE: She is about the same. She states she has been down, and she has been crying a good bit. She does not want to go to [facility] week stating that they caused her pain last time, and she felt misled regarding expectations. OBJECTIVE: Vital Signs: Blood pressure 117/57, heart rate 115, respirations 18, and afebrile. General: No acute distress. Skin: Warm and dry. Somewhat pale. Neck: Neck veins are not appreciated. Heart: Regular. No gallops. Lungs: Equal. No crackles. Abdomen: Soft, nontender. Bowel sounds present. Extremities: No edema, clubbing or cyanosis. IMPRESSION: 1. Chronic kidney disease 5D. We will dialyze her tomorrow, and then get her back on her schedule. 2. Thrombosed AV access. She has a Vas-Cath currently. She will need a tunneled catheter before discharge, and we will have Dr. Dennis and Dr. Cope going forward. 3. Status post laparoscopic cholecystectomy, lysis of adhesions and partial colectomy. She has is having bowel movements. cc: Michael Leavitt MD
--- NOTE | 2018-12-30 17:52 | INFECTIOUS DISEASE PROGRESS NO ---
DATE: 12/30/2018 PRESENT ILLNESS: The patient has is being treated for a vancomycin-resistant enterococcal bacteremia and a E coli, group B strep and Staph epidermidis peritonitis. The patient also may have a pneumonia versus atelectasis as seen on her chest x-ray and also on another x-ray, it was felt the patient had pulmonary edema and not a pneumonia. MEDICATIONS: This is the 10th day of treatment with Zosyn and the 7th day of treatment with vancomycin. PHYSICAL EXAMINATION: Vital Signs: Temperature is 98.1 degrees, pulse 86, respirations 18, blood pressure 98/45. General: This is an obese, middle-aged female. She is lying on her bed with her head on the side and her legs hanging over the other side. Head/eyes/ears/nose/throat: No drainage noted from the nose or ears. She did not have any white patches on her tongue. Neck: The patient has a right-sided jugular vein catheter in place. Lungs: Clear to auscultation. Cardiovascular: Heart rate is regular. Abdomen: Soft and not tender. The incision has a dressing over it. The dressing is intact. Neurologic: The patient was sleeping but she did awake one time and it did not look like she was having any acute distress. Extremities: Patient has a nonfunctioning AV fistula in the left arm. LAB AND X-RAY: Chest x-ray shows pulmonary edema. CBC shows a white count of 9020, hemoglobin 9, platelet count 262,000. Creatinine is 4.4. GFR is 10. ASSESSMENT AND PLAN: Patient is being treated for bacteremia and peritonitis. My plan is to continue vancomycin and Zosyn. COMORBIDITIES: The patient is morbidly obese. She has end-stage renal disease and she gets hemodialysis. She also has congestive heart failure and a nonfunctional AV fistula in the left arm. cc: Reji Henley MD
[2018-12-31] MEDS: ZOSYN 2.25 GM in NS 50 ML IV SCH ×5 (04:22→22:29)
[2018-12-31] MEDS: PROTONIX PO SCH (06:19)
[2018-12-31 07:59] LABS: BASO# 0.22 X1000 (0.0-0.2); BASO% 2.6 % (0.0-0.8); EOS# 0.72 X1000 (0.0-0.7); EOS% 8.6 % (0.0-10.0); HEMATOCRIT 29.5 % (37.0-47.0); HEMOGLOBIN 8.7 g/dL (12.0-16.0); IMM GRAN# 0.07 X1000 (0.0-0.04); IMM GRAN% 0.8 % (0.0-0.5); LYMPH# 1.52 X1000 (1.2-3.4); LYMPH% 18.2 % (20.5-51.1); MCH 32.2 PG (27-31); MCHC 29.5 g/dL (33-37); MCV 109.3 FL (81-99); MONO# 0.75 X1000 (0.11-0.59); MPV 10.9 FL (7.4-10.4); NEUT# 5.06 X1000 (1.4-6.5); NEUT% 60.8 % (42.2-75.2); PLT 237 X1000 (130-400); RDW 15.8 % (11.5-14.5); WBC 8.34 X1000 (4.8-10.8)
[2018-12-31 08:00] LABS: ALBUMIN 3.3 g/dL (3.5-5.0); CALCIUM 8.6 mg/dL (8.8-10.2); CREATININE 6.3 mg/dL (0.5-0.9); PHOSPHORUS 5.6 mg/dL (2.7-4.5); POTASSIUM 3.1 mmol/L (3.5-5.1)
[2018-12-31] MEDS: HEPARIN SUBQ SCH ×2 (08:10→22:30)
[2018-12-31] MEDS: PERIDEX MT SCH ×2 (08:10→22:30)
[2018-12-31] MEDS: NORCO-10 PO PRN ×2 (08:21→16:58)
[2018-12-31] MEDS: CALMOSEPTINE OINTMENT TOP SCH ×4 (08:22→22:30)
[2018-12-31] MEDS: D50W 250 ML, AMINOSYN 15% 500 ML, LIPOSYN 20% 250 ML MISC SCH ×3 (09:40)
[2018-12-31] MEDS ORDERED: NS 2,000 ML MISC PRN (09:48)
[2018-12-31] MEDS ORDERED: TIGHT: 0.2 ML/HR FOR DIALYSIS MISC PRN (09:48)
[2018-12-31] MEDS ORDERED: HEPARIN IV PRN (09:48)
--- NOTE | 2018-12-31 12:13 | PROGRESS NOTE ---
DATE: 12/31/2018 SUBJECTIVE: The patient is getting dialysis at this moment. She is feeling much better. She has been refusing rehab. She will go home with home health, probably we need to place a permanent catheter for dialysis before going home. OBJECTIVE: Vital Signs: Temperature 98.4 degrees, pulse 77, respiratory rate 18, blood pressure 130/52, oxygen saturation 100% on room air. HEENT: Head normocephalic, no trauma. PERRLA. Neck: Supple. No JVD. No masses. Central trachea. Chest: Crepitus at the bases. Abdomen: Soft, protuberant. Multiple scars but they look clean. No bleeding. Extremities: Trace edema. No clubbing. No cyanosis. Neurological: The patient is alert. She is oriented x3. No focal deficits. LABORATORY DATA: WBC 8.3, hemoglobin 8.7, hematocrit 29.5, and platelets 237,000. Sodium 140, potassium 3.1, chloride 98, bicarbonate 21, BUN 39, creatinine 6.3, glucose 96, calcium 8.6, phosphorus 5.6, albumin 3.3. ASSESSMENT AND PLAN: 1. Septic shock, resolved. Initial blood culture showed Enterococcus faecium. Infectious Disease Department on board. Blood cultures from 12/20/2018 and 12/23/2018 are negative so far. 2. Bilateral lower lobe pneumonia continue antibiotics. She looks better. 3. Chronic obstructive pulmonary disease, pulmonary hypertension and acute hypoxemic and hypercarbic respiratory failure status post extubation. Continue oxygen supplementation. She seems to be better. 4. Initially admitted due to perforated viscus with free air abdominal image, she was taken to surgery and she had a cholecystectomy done with appendectomy and pelvic mass has been removed, but no perforated viscus. 5. End-stage renal disease. She is getting dialysis at this moment. 6. Clotted atrioventricular fistula, she went for surgery 3 days ago and they we were not able to remove the clot. The plan is to place a permanent catheter so she can be dialyzed. 7. Obesity with a body mass index of 45 obesity, aware. 8. Anemia. Continue with the same management, status post PRBC. 9. Nutritional status. She has been tolerating p.o. well. 10. Physical deconditioning and generalized weakness. Continue with physical therapy. Apparently, she was able to move a little bit at home with a front wheel walker. 11. The patient is doing better. Pending permanent catheter placement, she has been refusing to go to a rehab center, she will go home with home health. cc: Casper Veliz MD
--- NOTE | 2018-12-31 15:00 | NEPHROLOGY PROGRESS NOTE ---
DATE: 12/31/2018 SUBJECTIVE: She is currently receiving hemodialysis. Using her Vas-Cath. No new complaints. Abdominal pain is improved. OBJECTIVE: Vital Signs: Blood pressure 130/52, heart rate 77, respiration 18, afebrile. Generally: No acute distress. Skin: Warm and dry. Neck: Neck veins are not distended. Heart: Regular. No gallops. Lungs: Equal. No crackles or wheezes. Abdomen: Obese, soft, nontender. Extremities: Have no edema, clubbing or cyanosis. IMPRESSION: Chronic kidney disease 5 D. She is receiving her routine hemodialysis treatment today, except using a 3 potassium bath. Potassium is mildly low at 3.1. A goal of 2 to 3 liters ultrafiltration as blood pressure allows. Her hemoglobin is 8.7, which is roughly stable over the last 48 hours. No indication for transfusion. cc: Michael Leavitt MD
[2018-12-31] MEDS ORDERED: VANCOMYCIN 1 GM/NS 1 GM/250 ML IVPB IV ONE (17:00)
[2018-12-31] MEDS: KLONOPIN PO PRN (22:30)
[2019-01-01] MEDS: ZOSYN 2.25 GM in NS 50 ML IV SCH ×6 (05:30→22:50)
[2019-01-01] MEDS: PROTONIX PO SCH (06:59)
[2019-01-01] MEDS: NORCO-10 PO PRN ×2 (09:41→22:50)
[2019-01-01] MEDS: KLONOPIN PO PRN ×2 (09:41→22:50)
[2019-01-01] MEDS: PERIDEX MT SCH ×2 (09:42→22:00)
[2019-01-01] MEDS: HEPARIN SUBQ SCH ×2 (09:43→22:36)
[2019-01-01] MEDS: CALMOSEPTINE OINTMENT TOP SCH ×4 (09:44→22:36)
[2019-01-01 10:54] LABS: HEPATITIS PROFILE ACUTE SEE COMMENTS
--- NOTE | 2019-01-01 14:33 | PROGRESS NOTE ---
DATE: 01/01/2019 SUBJECTIVE: The patient is getting better. When I examined her, she was sitting in bed. The plan is to get a permanent dialysis catheter placed so she can be discharged home with home health at home. She refused to go to a rehab center. OBJECTIVE: Vital Signs: Temperature 98.9 degrees, pulse 78, respiratory rate 14, blood pressure 130/63, oxygen saturation 96% on 2 L of nasal cannula. HEENT: Head normocephalic. No trauma. PERRLA. Neck: Supple. No JVD. No masses. Central trachea. Chest: Crepitus at the bases. Abdomen: Soft, protuberant. Multiple scars at the level of the abdomen but they look clean, dry. No bleeding. Extremities: Trace edema. No clubbing. No cyanosis. Neurological Examination: The patient is alert. She is oriented x3. She does have generalized weakness. Laboratory: WBC 8.3, hemoglobin 8.7, hematocrit 29.5, platelets 237,000. Sodium 140, potassium 3.1, chloride 98, bicarbonate 21, BUN 39, creatinine 6.3, glucose 96, calcium 8.6, albumin 3.3. ASSESSMENT AND PLAN: 1. Septic shock, resolved. Initial blood culture showed Enterococcus faecium. Infectious disease department on board. Blood culture from 12/20/2018 and 12/23/2018 are negative. We will monitor. 2. Bilateral lower lobe pneumonia. Continue with antibiotics. She looks better. 3. Chronic obstructive pulmonary disease, pulmonary hypertension, and acute hypoxemic and hypercarbic respiratory failure, status post extubation. Continue with oxygen supplementation. She seems to be better. 4. Initially admitted due to perforated viscus with free air in abdominal image. She was taken to the operating room. She had a cholecystectomy, appendectomy, and pelvic mass removal but no perforated viscus. 5. End-stage renal disease. She is getting dialysis Wednesday, Wednesday, and Wednesday. 6. Clotted arteriovenous fistula. She went for surgery four days ago and they were not able to remove the clot. The plan is to place a permanent catheter so she can be dialyzed. 7. Obesity with a body mass index of 43.9. Aware. 8. Nutritional status. She is tolerating oral intake. 9. Physical deconditioning and generalized weakness. Continue physical therapy. Apparently, she was able to move a little bit at home with a front wheel walker. She refused to go to a rehab center. 10. The patient is doing better, pending permanent catheter placement for dialysis. After this procedure, this patient can be discharged home. We will follow the instructions of the infectious disease department and she will finally be discharged home with home health and physical therapy at home. cc: Casper Veliz MD
--- NOTE | 2019-01-01 16:15 | GENERAL SURGERY PROGRESS NOTE ---
DATE: 01/01/2019 SUBJECTIVE: Doing well. She needs a tunneled catheter to facilitate outpatient dialysis. OBJECTIVE: On exam, her dressing on her arm is intact. She has a Vas-Cath in her right neck. ASSESSMENT AND PLAN: This is a 58-year-old female with end-stage renal disease related other issues, thrombosis of her arterial venous fistula. She is ready for discharge but needs outpatient tunneled catheter. I discussed risks of bleeding, infection, pneumothorax, malfunction, vascular injury. She understands and consents. Will go to the operating room tomorrow. cc: Kizzy Cope MD
[2019-01-02] MEDS: ZOSYN 2.25 GM in NS 50 ML IV SCH ×2 (06:12→10:46)
[2019-01-02] MEDS: PROTONIX PO SCH (06:35)
[2019-01-02 07:50] LABS: BASO# 0.15 X1000 (0.0-0.2); BASO% 2.4 % (0.0-0.8); EOS# 0.87 X1000 (0.0-0.7); EOS% 13.7 % (0.0-10.0); HEMOGLOBIN 8.7 g/dL (12.0-16.0); IMM GRAN# 0.03 X1000 (0.0-0.04); IMM GRAN% 0.5 % (0.0-0.5); LYMPH% 20.4 % (20.5-51.1); MCV 110.3 FL (81-99); MONO# 0.71 X1000 (0.11-0.59); MONO% 11.1 % (1.7-9.3); MPV 11.3 FL (7.4-10.4); NEUT# 3.31 X1000 (1.4-6.5); NEUT% 51.9 % (42.2-75.2); PLT 216 X1000 (130-400); RBC 2.72 XMIL (4.2-5.4); RDW 16.4 % (11.5-14.5); WBC 6.37 X1000 (4.8-10.8)
--- NOTE | 2019-01-02 07:57 | Diag Imaging Result Doc PS360 ---
CHEST-1 VIEW - 01/02/2019 INDICATION: SOB COMPARISON: 12/30/2018 FINDINGS: Stable right-sided dialysis catheter. Stable cardiomegaly and pulmonary vascular congestion. No infiltrates or edema. No large pleural effusion. IMPRESSION: Cardiomegaly and pulmonary vascular congestion. Electronically signed by Chance Sommers 01/02/2019 7:55 AM
[2019-01-02 08:03] LABS: ALBUMIN 3.2 g/dL (3.5-5.0); CALCIUM 8.7 mg/dL (8.8-10.2); PHOSPHORUS 6.7 mg/dL (2.7-4.5); POTASSIUM 3.2 mmol/L (3.5-5.1)
[2019-01-02] MEDS: NORCO-10 PO PRN (10:02)
[2019-01-02] MEDS: PERIDEX MT SCH (10:03)
[2019-01-02] MEDS: HEPARIN SUBQ SCH ×2 (10:04→22:00)
[2019-01-02] MEDS: CALMOSEPTINE OINTMENT TOP SCH ×4 (10:04→22:00)
[2019-01-02] MEDS ORDERED: XYLOCAINE 1% ONE (12:44)
[2019-01-02] MEDS ORDERED: SENSORCAINE 0.25%/EPI 1:200,000 ONE (12:44)
[2019-01-02] MEDS ORDERED: NS 250 ML ONE (12:45)
[2019-01-02] MEDS ORDERED: DEMEROL ONE (12:59)
[2019-01-02] MEDS ORDERED: DIPRIVAN 1% ONE (12:59)
[2019-01-02] MEDS ORDERED: NS 2,000 ML MISC PRN (16:19)
[2019-01-02] MEDS ORDERED: VANCOMYCIN 1 GM/NS 1 GM/250 ML IVPB IV ONE ×2 (17:00→19:30)
--- NOTE | 2019-01-02 21:13 | NEPHROLOGY PROGRESS NOTE ---
DATE: 01/02/2019 SUBJECTIVE: She is in her bed, anticipating surgery. No new complaints. No shortness of breath, nausea, vomiting, etc. Just fatigued. OBJECTIVE: Blood pressure 135/59, heart rate 77, respiration 18, afebrile. Generally in no acute distress. Skin is warm and dry. Neck veins are not distended. Heart is regular with no gallops. Lungs are equal, no crackles. Abdomen: Soft, nontender. Bowel sounds present. Midline dressing is clean. Extremities have no edema. IMPRESSION: 1. Chronic kidney disease, 5D. She will have her routine hemodialysis today after new access is placed. 2. Electrolytes/acid-base acceptable. A 3 K bath today. 3. Her hemoglobin is stable at 8.7. She does not meet criteria for transfusion. 4. With regard to her dialysis access, she will get a new catheter today, and we will have to address possible thrombectomy as an outpatient. cc: Michael Leavitt MD
--- NOTE | 2019-01-02 21:28 | OPERATIVE NOTE ---
PROCEDURE DATE: 01/02/2019 PREOP DIAGNOSIS: End-stage renal disease. POSTOP: End-stage renal disease. PROCEDURE PERFORMED: Right internal jugular vein PermCath placement 18 cm tip to curve GlidePath catheter fluoroscopy less 1 hour. COMPLICATION: None. ANESTHESIA: General. ESTIMATED BLOOD LOSS: 5 mL. SPECIMENS: None. INDICATIONS: Female who during a hospital course related to surgical abdominal issue her AV fistula thrombosed and needs tunnel catheter until another fistula can be placed. OPERATIVE FINDINGS: 1. Right internal jugular vein Vas-Cath all ports were open. 2. Final fluoroscopic image showed good position the catheter in superior vena cava-atrial junction with no kinking, no pneumothorax. OPERATIVE NOTE: Risks, benefits, alternatives were discussed with patient, she consented the procedure, seen preoperatively and surgical site was confirmed. Bilateral neck, chest prepped Betadine draped usual fashion. A time-out wire access was gained through the right internal jugular vein Vas-Cath and fluoroscopic images were obtained. We then removed the catheter. A 18 cm tip to curve GlidePath catheter was tunneled from incision chest incision in the neck and a dilator peel-away introducer sheath was advanced. We then passed the catheter, confirmed it was good position, removed the catheter and the peel-away sheath of the wire. All ports withdrew blood were flushed with dilute heparinized saline. Caps were applied and secured. Final fluoroscopic image appropriate. We closed incisions both the neck, chest with 4-0 Monocryl, dressing was applied . cc: Kizzy Cope MD [facility] CENTERLesley
--- NOTE | 2019-01-02 22:47 | INFECTIOUS DISEASE PROGRESS NO ---
DATE: 01/02/2019 Patient is being treated for vancomycin-resistant enterococcal bacteremia and an E coli, group B strep and Staph epidermidis peritonitis. The patient also has possibly had pneumonia versus atelectasis. Her infections have all cleared up at this time, and I am going to discontinue her antibiotics. I am signing off on the patient's case, but I am available to see her on a p.r.n. basis. cc: Reji Henley MD
--- NOTE | 2019-01-03 02:19 | PROGRESS NOTE ---
DATE: 01/02/2019 INTERVAL HISTORY: No acute events overnight. SUBJECTIVE: She is denying any complaints. She states now she has been consistently coming out of bed and sitting in the chair; however, she does need a lot of assistance with this. The patient's is at the bedside. She also underwent right-sided chest tunneled dialysis catheter placement, which she tolerated well. She denies any other complaints. OBJECTIVE: Vital Signs: Currently temperature of 98 degrees, pulse 77, respiratory rate 14, blood pressure is 117/60, saturating 98% on nasal cannula. General: Morbidly obese, not in a ny acute distress. HEENT: Oral cavity is moist. Lungs: Air entry bilaterally equal. No wheeze, rhonchi or crackles. Cardiovascular: S1, S2 normal. No murmur, rub or gallop. She has a left arm AV fistula. Cardiovascular: S1, S2 normal. Abdomen: Obese, soft, midline laparotomy scar, mildly tender, active bowel sounds. Extremity: No lower extremity edema. Neurologic: She is alert and oriented x3. She is able to raise both upper and lower extremity above ground level, though she appears very weak. LABORATORY DATA: Suggestive of macrocytic anemia, normal platelet count, hypokalemia, elevated BUN and creatinine due to her end-stage renal disease. MICROBIOLOGY: No positive data. C difficile toxin on 12/31/2018 was negative. ASSESSMENT AND PLAN: 1. Septic shock due to Enterococcus faecium on presentation, her first set of negative blood cultures were on 12/20/2018. Continue intravenous vancomycin and Zosyn, and I am anticipating discontinuing antibiotics tomorrow. 2. Her acute hypoxic hypercarbic respiratory failure requiring mechanical ventilation, acute chronic obstructive pulmonary disease exacerbation, bilateral lower lobe pneumonia are getting better as per the chest x-ray. 3. On initial presentation with left lower quadrant abdominal pain requiring laparotomy on 12/15/2018 status post cholecystectomy, appendectomy and resection of left ovarian cystadenofibroma. We will continue oral diet. Alpine as needed for pain, and heparin for DVT prophylaxis. 4. Physical deconditioning, morbid obesity, generalized weakness. The patient refused to go to rehab. Plan is to discharge her home tomorrow with home physical therapy. 5. End-stage renal disease on home Wednesday, Wednesday, Wednesday hemodialysis. Her left arm AV fistula was clotted, which could not be reopened. She is now right-sided PermCath placement. 6. Disposition. I will discharge the patient home tomorrow. Plan of care was discussed with her. All questions have been answered. cc: Jean-Paul Sheikh MD MTDD
[2019-01-03] MEDS: NORCO-10 PO PRN (04:15)
[2019-01-03] MEDS: ZOSYN 2.25 GM in NS 50 ML IV SCH ×2 (05:10→06:29)
[2019-01-03] MEDS: PERIDEX MT SCH ×2 (06:31→08:55)
[2019-01-03] MEDS: PROTONIX PO SCH (06:35)
--- NOTE | 2019-01-03 09:34 | NEPHROLOGY PROGRESS NOTE ---
DATE: 01/03/2019 SUBJECTIVE: She is hoping for discharge. Sitting up on the bedside. No shortness of breath, nausea, or vomiting, etc. OBJECTIVE: Vital signs: Blood pressure 137/60, heart rate 78, respirations 16, afebrile. General: No acute distress. Skin is warm and dry. Neck veins are not distended. Heart is regular. Lungs are equal, no crackles. Abdomen soft, nontender, bowel sounds present. Extremities have no edema, clubbing, or cyanosis. IMPRESSION: 1. Status post acute abdomen requiring surgical resection. She is eating well and having normal bowel movements. 2. Pelvic mass. Benign. 3. Thrombosed arteriovenous fistula. We will arrange outpatient management at [facility]. She is using a tunneled catheter currently. 4. Chronic kidney disease 5D. She will attend her routine treatment tomorrow. cc: Michael Leavitt MD
[2019-01-03] MEDS: HEPARIN SUBQ SCH (09:39)
[2019-01-03] MEDS: CALMOSEPTINE OINTMENT TOP SCH (09:40)
[2019-01-03 11:37] VITALS: BP 132/63
--- NOTE | 2019-01-04 08:30 | DISCHARGE SUMMARY ---
ADMISSION DATE: 12/12/2018 DISCHARGE DATE: 01/03/2019 DISCHARGE DISPOSITION: Home with home physical therapy. The patient did not want to go to rehab. DISCHARGE CONDITION: Hemodynamically stable. She has a right-sided chest tunneled dialysis catheter, which she is getting dialysis through. She is alert and oriented x3. She is breathing well on room air. Denies any chest pain, shortness of breath, or undue abdominal pain. Her oral intake and bowel movements are adequate. DISCHARGE INSTRUCTIONS AND FOLLOW-UP: She was advised to have follow-up with Dr. Leavitt, Dr. Rodriguez, Dr. Henley, Dr. Lee, Dr. Dennis. She was also advised to discuss with her regular doctor about recent hospital admission and complicated course. She was advised to continue physical therapy. DISCHARGE DIAGNOSES: 1. Septic shock due to Enterococcus faecium. 2. Acute hypoxic hypercarbic respiratory failure requiring mechanical ventilation. 3. Acute chronic obstructive pulmonary disease exacerbation. 4. Bilateral lower lobe pneumonia. 5. Left lower quadrant abdominal pain. 6. Cholecystitis, appendicitis. 7. Left ovarian cystadenofibroma. 8. Morbid obesity. 9. Physical deconditioning. 10. Thrombosed left arm arteriovenous fistula. OTHER DIAGNOSES: 1. History of end-stage renal disease on Wednesday, Wednesday, Wednesday hemodialysis. 2. History of hypertensive heart disease. 3. History of chronic anemia. 4. History of congestive heart failure with echocardiogram in November showing ejection fraction of 75% with 45 to 50 mmHg pulmonary artery pressure suggesting moderate pulmonary hypertension. CONSULTATIONS AND PROCEDURES DURING HOSPITAL ADMISSION: 1. Nephrology, Dr. Leavitt. 2. Pulmonology, Dr. Rodriguez. 3. Infectious Disease, Dr. Henley. 4. General surgeon, Dr. Dennis. 5. Cardiology, Dr. Lee for atrial fibrillation. PROCEDURES DURING HOSPITAL ADMISSION: 1. On 12/15/2018, she underwent laparoscopic cholecystectomy with intraoperative cholangiogram. 2. Resection of large left pelvic mass. 3. Open appendectomy. 4. Exploratory laparotomy with lysis of adhesions and mobilization of the colon. 5. On 01/02/2019, she underwent right internal jugular vein PermCath placement. DISCHARGE MEDICATIONS: 1. Amlodipine 5 mg on Wednesday, Wednesday, Wednesday, Wednesday at bedtime. 2. Carvedilol 25 mg 1/2 tablet in the morning of Wednesday, Wednesday, Wednesday. 3. Clonidine 0.1 mg 1 tablet at bedtime on Wednesday, Wednesday, Wednesday, Wednesday. 4. Losartan 100 mg in the morning time on Wednesday, Wednesday, , and Wednesday. 5. Cherelle-Beatriz tablet 0.8 mg in the evening time. 6. Loranger 10 one tablet every 6 hours as needed for pain, 15 tablets have been prescribed. 7. Acetaminophen 650 mg every 6 hours as needed for mild pain. VITALS: At the time of discharge temperature 98.5 degrees, pulse 85, respiratory rate 16, blood pressure 130/60, saturating 96 on room air. PHYSICAL EXAMINATION: General: Does not appear to be in any acute distress. Oral cavity: Moist. Lungs: Air entry bilaterally equal with no wheeze, rhonchi, crackles. Cardiovascular: S1, S2 normal. No murmur or gallop. Abdomen: Soft. Midline scar of laparotomy. Only mild tenderness. Active bowel sounds. Extremities: No lower extremity edema. Neurologic: She is alert and oriented x3. She is able to raise both upper and lower extremities above ground level. SIGNIFICANT LABS: During hospital admission and discharge, she did have leukocytosis of 17,000 on admission which improved to 6000 at time of discharge. Her hemoglobin was 8.7 at the time of discharge. She did require 1 unit of transfusion for blood loss related to acute blood-loss anemia sustained during surgery, as well as her critical course. Her platelet count was largely normal. At the time of discharge, her sodium is 142, potassium is 3.2, BUN 31, creatinine 7. Her GFR is 6. Her hepatitis panel during this hospital admission did not have any positive serology. MICROBIOLOGY DURING HOSPITAL ADMISSION AND DISCHARGE: Her vaginal culture has E coli, Streptococcus agalactiae, staphylococcal coccus epidermidis. One of the 2 blood cultures was growing Enterococcus faecium, which was sensitive to penicillin and resistant to vancomycin. Repeat blood cultures on December 20 and December 23 were unremarkable. Sputum culture did not have any growth. C difficile toxin analysis was unremarkable. IMAGING: Significant imaging during hospital admission: 1. Abdomen, pelvis CT on December 12 had interval development of substantial atrophic changes of bilateral kidneys, generalized thinning of the renal cortices, 1 cm stone in the left renal pelvis with mild distention of the left renal pelvis. No other substantial hydronephrosis, nonobstructing stone in the right kidney. There was a 16 x 16 cm cystic-appearing mass, which was extending from anterior pelvis to the anterior lower abdomen which was enlarged, likely originating from left adnexa. There were inflammatory changes in the lower abdomen near where the mass with extraluminal gas in the mesentery. Free intraperitoneal air compatible with perforated viscus. This may arise from the diverticulitis at low-lying midtransverse colon. It is also possible that this could be related to pressure erosion of small bowel by the mass. 2. Chest x-ray on December 21 had pulmonary edema with atelectasis and pneumonia. She has had multiple chest x-rays after that; the latest one on January 02 had cardiomegaly and pulmonary vascular congestion. 3. Pathology during hospital admission on December 16 after the abdominal surgery, the gallbladder had suggested cholelithiasis and acute and chronic cholecystitis with mucosal ulceration and areas of necrosis ovary and fallopian tube. Left salpingo-oophorectomy specimen had serous cystadenofibroma with patchy chronic inflammation and fibrosis. Appendix had acute serosal inflammation with focal necrosis. HOSPITAL COURSE SUMMARY: Ms. Carmen is a 58-year-old lady who had initially presented on 12/12/2018 with chief complaint of 2-day history of left lower quadrant pain. She did have past medical history of end-stage renal disease. Her abdominal pain persisted throughout the night and it was progressively getting worse. It was sharp, worse with slight body movement. She was feeling nauseous and having chills without vomiting. The pain was radiating to left lower quadrant and suprapubic area. With these complaints she came to the hospital. CT scan of the abdomen and pelvis was performed which had suggested large left ovarian cystadenoma, and there was questionable free air intra-abdominally, so she was emergently taken down for surgery where she underwent cholecystectomy, appendectomy and left ovarian mass removal. Her postoperative course was rather complicated. She had developed postoperative atrial fibrillation for which Cardiology team was consulted and she received intravenous diltiazem. Pulmonology was consulted on December 22 for acute hypoxic respiratory failure, for which she required ventilatory support. She also had developed pneumonia, for which she received IV antibiotics as per ID recommendation. She also developed acute chronic obstructive pulmonary disease exacerbation requiring close pulmonary monitoring. Otherwise, her hospital course during this hospitalization revealed she was treated for septic shock, acute hypoxic hypercarbic respiratory failure, acute chronic obstructive pulmonary disease exacerbation, pneumonia, and Enterococcus faecium bacteremia likely originating from her intra-abdominal peritonitis, which were all treated. At the time of discharge, she has been tolerating diet well. The patient was offered rehab. However, she refused to go to rehab and wanted to go home. TIME SPENT: More than 30 minutes was spent discharging this patient. cc: Jean-Paul Sheikh MD
== END 2019-01-03 13:32 | disposition home health service (06) | DRG 742 ==
LOC: ED 15:40 → SUATTDRO 22:02 → 4N 22:02 → 2N 12-16 06:31 → ICU 12-16 11:08 → 4N 12-27 18:38
PROVIDERS: ATTEND Internal Medicine